=== PATIENT | female | born 2005 | race Caucasian/White ===

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

== ENCOUNTER 2024-06-28 10:09 | Emergency (ER) | payer SELFPAY ==
[2024-06-28 10:17] VITALS: BP 107/79; PULSE 86; RESP 20; TEMP 36.7; O2SAT 100
--- NOTE | 2024-06-28 10:25 | ED.URI ---
HPI - URI/Sore Throat General Chief Complaint: Upper Respiratory Infection Stated Complaint: SINUS ISSUES Time Seen by Provider: 06/28/24 10:25 Source: patient Mode of arrival: ambulatory Limitations: no limitations History of Present Illness HPI Narrative: 18-year-old female status post tonsillectomy presents to the ED with a 1 day history of -- fever -- sore throat -- sinus fullness. no sinus pain. No nasal congestion or nasal discharge. Prior history of sinusitis MD elicited complaint: fever and sinus pain Onset (ago): day(s) ( 1 day) Consistency: constant Able to tolerate fluids by mouth: Yes Exacerbating factors: nothing Relieving factors: nothing Associated symptoms: denies other symptoms, fever and sore throat Treatments prior to arrival: none Related Data Home Medications ?Medication ?Instructions ?Recorded ?Confirmed ?Last Taken ?Type etonogestrel 68 mg subdermal 1 implant subdermal ONCE 02/06/21 01/15/24 06/26/22 History implant (Nexplanon) Allergies Allergy/AdvReac Type Severity Reaction Status Date / Time No Known Allergies Allergy Verified 06/28/24 10:26 Review of Systems Review of Systems: All systems reviewed & are unremarkable except as noted in HPI and below PMFSH Past Medical History Medical History Encounter for postoperative care Laceration of left extensor hallucis longus tendon Social History Social History Smoking status: Never smoker Second hand tobacco smoke exposure: No Alcohol intake: never Substance use: never Substance use type: does not use Living arrangements: with family Additional living arrangements comments: Lives with mom Occupation/Education: student Spiritual care concerns: No Exam Narrative: afebrile. Oxygen saturation of 100% on room air. Const: General: healthy appearing and no acute distress Nutritional Appearance: well nourished Orientation/consciousness: patient oriented x3 Limitations: no limitations HENMT: Head: normal to inspection Ears: external ears normal Face/Nose/Sinus: Normal external nose present Face and sinus: normal facial exam Mouth: Yes Normal oral and palatal mucosa present Throat: posterior oropharynx normal Eyes: Conjunctivae: conjunctivae normal Pupils: Equal, round and reactive pupils present EOM: EOMs intact bilaterally Direct Ophthalmoscopy: no photophobia Neck: Neck: normal visual inspection, no lymphadenopathy and no meningeal signs Chest: Chest palpation & inspection: normal inspection of the chest Resp: Effort & Inspection: normal respiratory effort Auscultation: clear to auscultation bilaterally Cardio: Rate: regular rate Rhythm: regular rhythm GI: GI Palp: Yes Soft to palpation Auscultation: normal bowel sounds : General: Yes no CVA tenderness Back/Spine/Pelvis: Back: no CVA tenderness Skin: General skin exam: normal color Rashes: no rashes Wounds: no wounds Neuro: General: patient oriented x3, moves all extremities, no meningeal signs, no focal motor deficits and CN's II-XI intact bilaterally Cranial nerves: Yes Nystagmus not present Speech: normal speech Extrem: General: normal to inspection and no clubbing, cyanosis or edema Psych: Mental Status: mental status grossly normal Affect: normal affect Attitude: cooperative Course Course Emergency Course: Sore throat upper respiratory tract infection-- Patient tested negative for influenza/ RSV / COVID and strep Vital Signs Vital signs: Vital Signs Temperature 36.7 C 06/28/24 10:17 Pulse Rate 86 06/28/24 10:17 Respiratory Rate 20 06/28/24 10:17 Blood Pressure 107/79 06/28/24 10:17 Pulse Oximetry 100 06/28/24 10:17 Oxygen Delivery Room Air 06/28/24 10:17 Temperature 36.7 C 06/28/24 10:17 Pulse Rate 86 06/28/24 10:17 Respiratory Rate 20 06/28/24 10:17 Blood Pressure 107/79 06/28/24 10:17 Pulse Oximetry 100 06/28/24 10:17 Oxygen Delivery Room Air 06/28/24 10:17 MDM - URI/Sore Throat MDM Narrative Medical decision making narrative: upper respiratory tract infection Differential Diagnosis Differential diagnosis: Likely viral infection Lab Data Attestation: I reviewed the patient's lab results. Labs: Lab Results 06/28/24 Range/Units 10:31 Influenza A (RT-PCR) Negative (Negative) Influenza B (RT-PCR) Negative (Negative) RSV (RT-PCR) Negative (Negative) SARS-CoV-2 RNA (RT-PCR) Negative (Negative) Group A Strep (PCR) Not detected (Negative) Discharge Plan Discharge Clinical Impression: URI (upper respiratory infection) Patient Disposition: Home, Self-Care Condition: Stable Instructions: Antibiotic Form, Upper Respiratory Infection (ED) Patient Language: Paraguayan Prescriptions: No Action Nexplanon 68 mg implant 1 implant subdermal ONCE Rx Instructions: as a single dose Follow-up/Referrals: UNKNOWN,DOCTOR [Primary Care Provider] - Time of Disposition: 11:33
--- NOTE | 2024-06-28 10:40 | PC.NURSE ---
Covid culture sent to lab
[2024-06-28 11:18] LABS: SARS-CoV-2 RNA PCR Negative (Negative)
[2024-06-28 11:25] LABS: Influenza A QL RT-PCR Negative (Negative); Influenza B QL RT-PCR Negative (Negative); RSV RNA, RT-PCR Negative (Negative); Strep Group A RT-PCR NOT DETECTED (Negative)
[2024-06-28 11:45] VITALS: BP 112/79; PULSE 76; RESP 18; TEMP 36.8; O2SAT 100
--- OUTSIDE RECORDS SUMMARY | 2024-07-05 20:24 | XMS_ITS | Encounter Summary ---
Author Organization [facility] Address [address] [place] [address] Care Team Providers Care Blow Machine Tender Starch Spraying Name Role Phone Azra Rivas MD Primary Care Provider Reason for Visit * Reason Onset Date Comments Referral 06/04/2021 Encounter Details Date Type Department Care Team (Late st Contact Info) Description 06/04/[address] 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 Social History Tobacco Use Types Packs/Day Years Used Date Smoking Tobacco: Passive Smo ke Exposure - Never Smoker Alcohol Use Standard Drinks/Week Comments No 0 (1 standard drink = 0.6 oz pur e alcohol) Sex and Gender Information Value Date Recorded Sex Assigned at Not on file Gender Identity Not on file Sexual Orientation Not on file documented as of this encounter Plan of Treatment Not on file documented as of this encounter Visit Diagnoses Not on filedocumented in this encounter Care Teams Blow Machine Tender Starch Spraying Relationship Specialty Start Date End Date Azra Rivas MD PCP - General Pediatrics 08/13/18 documented as of this encounter
--- OUTSIDE RECORDS SUMMARY | 2024-07-05 20:24 | XMS_ITS | Referral Summary ---
Author Organization [facility] Address [address] [place] [address] Care Team Providers Care Wheat Buyer Name Role Phone Azra Rivas MD Primary Care Provider Source Comments [facility] Affiliates and Associated Physician Practices is amultiple site organization consisting of ambulatory clinics and hospital sitesin [place], [place], [place] and [place]. This disclosure is being madepursuant to the Care Everywhere program and may not contain all information available regarding this patient. Last updated 18.[facility] Allergies No known active allergies Medications Be aware that medications may not be up to date on this document. Always verify current medications with the patient. No known medications Social History Tobacco Use Types Packs/Day Years Used Date Smoking Tobacco: Passive Smo ke Exposure - Never Smoker Tobacco Cessation:Counseling Given: No Alcohol Use Standard Drinks/Week Comments No 0 (1 standard drink = 0.6 oz pur e alcohol) Sex and Gender Information Value Date Recorded Sex Assigned at Not on file Gender Identity Not on file Sexual Orientation Not on file Last Filed Vital Signs Vital Sign Reading Time Taken Comments Blood Pressure 105/65 08/24/2016 10:32 AM OFFLINE EDITOR Pulse 80 08/24/2016 10:32 AM OFFLINE EDITOR Temperature 36.9 ??C (98.4 ??F) 08/24/2016 1 0:32 AM OFFLINE EDITOR Respiratory Rate 24 08/24/2016 10:3 2 AM OFFLINE EDITOR Oxygen Saturation 100% 08/24/2016 10: 32 AM OFFLINE EDITOR Inhaled Oxygen Concentration - - Weight 46.3 kg (102 lb 1.2 oz) 11/17/19 10:40 AM CDT Height 158 cm (5' 2.21 ) 11/16/2018 10: 40 AM CDT Body Mass Index 18.55 11/16/2018 10:40 AM CDT Body Mass Index Percentile 37.23% 11/16 10:40 AM CDT Growth Chart: [facility] (Girls, 2- 20 Years) Plan of Treatment Not on file Care Teams Wheat Buyer Relationship Specialty Start Date End Date Azra Rivas MD PCP - General Pediatrics 08/13/18
--- OUTSIDE RECORDS SUMMARY | 2024-07-05 20:24 | XMS_ITS | Data Portability ---
Author Organization [facility] Address [address] [place] [address] Assessment Encounter Date Assessment Date Assessment LastModified by Organization Details LastModified Time 01/28/2021 01/28/2021 Discussed BTB estradiol nexplanon due out [id number] std testing today. [email or web address] Not available 01/28/2021 14:40:48 12/18/2021 12/18/[address] trich done FU WWE 1 year Not available 12/23/2021 13:41:21 Plan of Treatment Reminders Order Date Submit Date Provider Last Modified By Organization Details Last Modified Time Details Appointments None recorded. Lab test, urine 2021 022 [facility], [address], [address], [place], [address], 09:58:41 Referral None recorded. Procedures None recorded. Surgeries None recorded. Imaging None recorded. Medication Orders estradiol 2 mg tablet 2020 021 [id number], [address] [place], [address], 15:55:32 Patient TargetsNo targets recorded. Patient InstructionsNo instructions recorded. Reason for Referral None Reported. Results Created Date Observation Date Name Description Value Unit Range Abnormal Flag Note LastModifiedBy Organization Detail LastModifiedTime 01/29/20 21 01/28/2021 CT/GC AND TRICH OMONA S VAGIN KAMAR (RRNA ), URINE chlamydia trachomatis, PCR Negati ve negati ve Not Available [facility] (Lab) [address], [place], [address], 01/29/2021 12:22:04 01/29/20 21 01/28/2021 CT/GC AND TRICH OMONA S VAGIN KAMAR (RRNA ), URINE neisseria gonorrhoeae, PCR Negati ve negati ve Not Available [facility] (Lab) [address], [place], [address], 01/29/2021 12:22:04 01/29/20 21 01/28/2021 CT/GC AND TRICH OMONA S VAGIN KAMAR (RRNA ), URINE trichomonas vaginalis ribosomal RNA (rrna) Negati ve negati ve Not Available [facility] (Lab) [address], [place], [address], 01/29/2021 12:22:04 04/07/20 22 04/07/2022 pregn boo test, urine HCG negati ve Not Available [place] [address], [place], [address], 04/07/2022 09:58:31 04/29/20 23 04/29/2023 CT/GC AND TRICH OMONA S VAGIN KAMAR (RRNA ), SWAB chlamydia trachomatis, PCR Negati ve negati ve Not Available [facility] (Lab) [address], [place], [address], 04/30/2023 15:11:41 04/29/20 23 04/29/2023 CT/GC AND TRICH OMONA S VAGIN KAMAR (RRNA ), SWAB neisseria gonorrhoeae, PCR Negati ve negati ve Not Available [facility] (Lab) [address], [place], [address], 04/30/2023 15:11:41 04/29/20 23 04/29/2023 CT/GC AND TRICH OMONA S VAGIN KAMAR (RRNA ), SWAB trichomonas vaginalis ribosomal RNA (rrna) Negati ve negati ve Not Available [facility] (Lab) [address], [place], [address], 04/30/2023 15:11:41 Result Notes None recorded. Problems Name Problem SNOMED Code Status Onset Date Resolution Date Notes Provider Name and Address Organization Details Recorded Time Educatio n Completed 201901/28/2021 Encounte r for other general counseli ng and advice on contrace ption;Re corded Elsewher e: No Locat ion: [facility] S ource: EHR Biology Instructor yimi: N Practi ce ID: [id number] Wallace lable Time: 02:30:00 PM Chapis Murillo MD [address], [place], [address], [facility] 14:12:[address] Concept Completed 201801/28/2021 Encntr for routine child health exam w/o abnormal findings ;Recorde d Elsewher e: No Locat ion: [facility] S ource: EHR Biology Instructor yimi: N Practi ce ID: [id number] Wallace lable Time: 03:00:00 PM Chapis Murillo MD [address], [place], [address], [facility] 14:12:58 Acute vaginiti s [id number] Completed 201801/28/2021 Vaginiti s;Record ed Elsewher e: No Locat ion: [facility] S ource: EHR Biology Instructor yimi: N Practi ce ID: [id number] Wallace lable Time: 04:00:[address] MD [address], [place], [address], [facility] 14:12:[address] Concept Completed 201801/28/2021 Encounte r for surveill ance of other contrace ptives;R ecorded Elsewher e: No Locat ion: [facility] S ource: EHR Biology Instructor yimi: N Practi ce ID: [id number] Wallace lable Time: 05:00:00 PM Chapis Murillo MD [address], [place], [address], [facility] 14:13:01 Finding of regulari ty of menstrua l cycle Completed 201801/28/2021 Irregula r menstrua tion, unspecif ied;Prac melinda ID: [id number] Chapis Murillo MD [address], [place], [address], [facility] 14:12:49 Pregnanc y test negative [id number] Completed 201801/28/2021 Encounte r for pregnanc y test, result negative ;Recorde d Elsewher e: No Locat ion: [facility] S ource: EHR Biology Instructor yimi: N Pepeti ce ID: [id number] Wallace lable Time: 05:00:00 PM Chapis Murillo MD [address], [place], [address], [facility] 14:12:55 Contrace ptive sheath status 408250202 Completed 201801/28/2021 Encounte r for initial prescrip tion of other contrace ptives;R ecorded Elsewher e: No Locat ion: [facility] S ource: EHR Biology Instructor yimi: N Pepeti ce ID: [id number] Wallace lable Time: 05:00:00 PM Chapis Murillo MD [address], [place], [address], [facility] 14:12:45 Insertio n of intraute rine contrace ptive device Completed 201801/28/2021 Encounte r for insertio n of intraute rine contrace ptive device;R ecorded Elsewher e: No Locat ion: [facility] S ource: EHR Biology Instructor yimi: N Pepeti ce ID: [id number] Wallace lable Time: 05:00:00 PM Chapis Murillo MD [address], [place], [address], [facility] 14:12:52 Problem Notes None recorded. Procedures Surgical History Date Name Laterality Status Provider Name and Address Organization Details Recorded Time 2 Control Implant Removal completed Chapis Murillo MD [address], [place], [address], [facility] 04/07/2022 16:21:04 2 Control Implant Insertion completed Chapis Murillo MD [address], [place], [address], [facility] 04/07/2022 16:22:03 Imaging Results None recorded. Procedure Notes None recorded. Medical Equipment None Reported. Allergies No known drug allergies Medications Name Sig Start Date Stop Date Status Note LastModified by Organization Details LastModified Time Metrogel Vaginal 0.75 % (37.5 mg/5 gram) insert 1 applicat orful by vaginal route every day at bedtime x 5 08/03 completed Prescrib ed Elsewher e: No Locat ion: [facility] M odify By: [email or web address] z Encoun ter DateTime : 06/08/20 04:00:00 PM Not Available Not Available Not Available estradiol 2 mg tablet Take 1 tablet every day by oral route for 14 days. 04/29 completed Not Available Not Available Not Available Nexplanon 68 mg subdermal implant Inject by subcutan eous route. active nexplano n inserted 9 will need removed 2 Not Available Not Available Not Available Vitals Date Recorded Body height Body mass index (BMI) Percentile per age and sex Body mass index (BMI) Body weight Systolic blood pressure Diastolic blood pressure Provider Name and Address Organization Details Last Updated DateTime 1 162.56 cm 19 % 18.4 kg/m2 88546.3 8 g 106 mm[Hg] 70 mm[Hg] Solange Bingham [facility] 1 14:07:20 Date Recorded Body weight Systolic blood pressure Diastolic blood pressure Provider Name and Address Organization Details Last Updated DateTime 12/18/2021 77102.79 g 104 mm[Hg] 68 mm[Hg] [facility] 12/18/2021 15:00:32 Date Recorded Body weight Systolic blood pressure Diastolic blood pressure Provider Name and Address Organization Details Last Updated DateTime 04/07/2022 04429.98 g 112 mm[Hg] 72 mm[Hg] [facility] 04/07/2022 09:53:21 Date Recorded Body height Body mass index (BMI) Body mass index (BMI) Percentile per age and sex Body weight Systolic blood pressure Diastolic blood pressure Provider Name and Address Organization Details Last Updated DateTime 162.56 cm 21.2 kg/m2 47 % 80105.3 g 109 mm[Hg] 70 mm[Hg] Skyla Montaño [facility] 15:54:14 Social History Question Answer Notes LastModified by Organizat ion Details LastModified Time Tobacco Smoking Status Never Smoker [facility] 01/28/2021 09:25:57 What Is Your Level Of Alcohol Consumption? None Information not available 01/28/2021 Has Tobacco Cessation Counseling Been Provided? No Information not available 01/28/2021 Do You Or Have You Ever Used Any Other Forms Of Tobacco Or Nicotine? No Information not available 01/28/2021 Sex: Unknown Functional Status None recorded. Mental Status None recorded. Family History Nothing Reported. Medical History Condition Response Allergies (Food, seasonal, environmental ) N Other N Breast Cancer N Drug/Latex Allergies/Reactions N Blood Transfusion N Lung Disease N Dermatologic Disorders N Defects or Inherited Disease N Breast Problem N Gestational Diabetes N Hematologic disorders N Anesthesia Complications N History of STI N Deep Vein Thrombosis N Polycystic ovary syndrome N Anxiety Disorder N Autoimmune disease N Arthritis N Infertility N Polyps N Acid Reflux (GERD) N History of abnormal pap N Cancer N Stroke N Varicosities N Neurologic/Epilepsy N Endometriosis N High Cholesterol N Headaches N Fibromyalgia N Kidney Disease N Heart Problems N Kidney or Bladder Problems N Thyroid Problems N GI Problems N Eating Disorder N Anemia N Art (IVF or FET) N Psychiatric Illness N Ovarian Cancer N Diabetes N Pulmonary (TB, Asthma) N Hepatitis/Liver Disease N No Past Medical History N Eczema N Urinary Tract Infection N Abuse/Domestic Violence N Asthma N Trauma/Violence N Depression/ depression N Heart Disease N Pre-Eclampsia N Hypertension N Osteoporosis N Thrombophilias N Gynecological History Statement/Question Response Date of LMP Sexually Active? Y STIs/STDs N HPV Vaccine N Date of Last Pap Smear Sexual Problems? N Current Control Method Implant LMP Unknown Obstetrics History GPAL:G 0 P 0 0 0 0 Past Encounters Encounter ID Performer Location Encounter Start Date Encounter Closed Date Diagnosis/Indication Diagnosis SNOMED-CT Code Diagnosis ICD10 Code [id number] Chapis Murillo MD [place] [address] [address] 01/28/2021 13:52:34 01/28/2021 14:46:02 Contraception care management 874479513 Z30.9 Break-thro ugh bleeding 73686695 N92.1 Venereal d isease screening 652111667 Z11.3 [id number] Chapis Murillo MD [facility] [address],[place] [address] 04/07/2022 09:34:21 04/07/2022 16:26:38 Contraception care management 492905992 Z30.9 Insertion of subcutaneous contraceptive 747720917 Z30.9 Removal of subcutaneous contraceptive 468432153 Z30.46 [id number] Chapis Murillo MD [place] [address],[place] [address] 12/18/2021 14:54:34 12/23/2021 15:02:33 Venereal disease screening 754816162 Z11.3 [id number] JULI Herring [place] [address] [address] 04/29/2023 15:36:35 04/29/2023 16:20:32 Venereal disease screening 366769020 Z11.3 Health Concerns Section Related Observation LastModified by Organization Detai ls LastModified Time None Recorded Concern Status LastModified by Organization Details LastModified Time None Recorded Advance Directives Directive None Recorded Payers Encounter Date Sequence Insurance Name Policy Number Policy Judge Covered Member ID Judge Member ID Guarantor Name 01/28/2021 1 [facility] - DOS ON OR AFTER 21 (MEDICAID REPLACEMENT - HMO) Restoff [id number] Margaret Restoff 12/18/2021 1 [facility] - DOS ON OR AFTER 21 (MEDICAID REPLACEMENT - HMO) Rachel Restoff [id number] Margaret Restoff 04/07/2022 1 [facility] - DOS ON OR AFTER 21 (MEDICAID REPLACEMENT - HMO) Restoff [id number] Margaret Restoff 04/29/2023 1 [facility] ON OR AFTER 01/03/21 (MEDICAID REPLACEMENT - HMO) Restoff [id number] Margaret Restoff Notes Date Note Type Note Provider Name and Address Organization Details Recorded Time 01/28/2021 text/html Pt is a 15yo G0 here complaining of spotting for the whole last year. Occasionally gets a couple days without. A couple heavier episodes, mostly brown bleeding. Denies Additional concerns: sexually active:y, no recent stdt esting contraception:nexplan on Last annual exam:none Chapis Murillo MD [address], [place], [address], [facility] 01/28/2021 14:41:08 12/18/2021 text/html Pt is a 16yo G0 who presents for an STD check. Current symptoms: none, but new partner for 2 weeks. 2 total partners. Has nexplanon. contraception:nexplan on Last annual exam:none Chapis Murillo MD [address], [place], [address], [facility] 12/23/2021 13:42:17 04/07/2022 text/html Here for nexplan on removal and reinsert. Chapis Murillo MD [address], [place], [address], [facility] 04/07/2022 16:25:51 04/29/2023 text/html 17yopresents for STI testingno symptomsrecently had a new partnerno known exposure to STI'snexplanon for BC, does not use condomsneg pelvic painneg n/v/fneg flu-like symptoms JULI Herring [address], [place], [address], [facility] 04/29/2023 16:20:27 OBGyn Episode No OBEpisode recorded.
--- OUTSIDE RECORDS SUMMARY | 2024-07-05 20:24 | XMS_ITS | Encounter Summary ---
Author Organization [facility] Address [address] [place] [address] Care Team Providers Care Manager Paper Name Role Phone Radha Pittman APRN-PRINTING SUPPLIES SALES REPRESENTATIVE Primary Care Provider Reason for Visit * Reason Comments Sports Physical Encounter Details Date Type Department Care Team ([facility] Contact Info) Description 08/24/2016 3:00 PM TUBE REPAIRER Office Visit [facility] [address] [phone] [facility] (Primary Dx) Social History Tobacco Use Types Packs/Day Years Used Date Smoking Tobacco: Never Tobacco Cessation:Counseling Given: No Alcohol Use Standard Drinks/Week Comments No 0 (1 standard drink = 0.6 oz pur e alcohol) Sex and Gender Information Value Date Recorded Sex Assigned at Not on file Gender Identity Not on file Sexual Orientation Not on file documented as of this encounter Last Filed Vital Signs Vital Sign Reading Time Taken Comments Blood Pressure 105/65 08/24/2016 10:32 AM TUBE REPAIRER Pulse 80 08/24/2016 10:32 AM TUBE REPAIRER Temperature 36.9 ??C (98.4 ??F) 08/24/2016 10:[address] Respiratory Rate 24 08/24/2016 10:32 AM TUBE REPAIRER Oxygen Saturation 100% 08/24/2016 10:32 AM TUBE REPAIRER Inhaled Oxygen Concentration - - Weight 34.5 kg (76 lb) 08/24/2016 10:32 AM TUBE REPAIRER Height 149.9 cm (4' 11 ) 08/24/2016 10:32 AM TUBE REPAIRER Body Mass Index 15.35 08/24/2016 10:32 AM TUBE REPAIRER Body Mass Index Percentile 9.83% 08/24/2016 10: 32 AM TUBE REPAIRER Growth Chart: CDC (Girls, 2- 20 Years) documented in this encounter Progress Notes * Stacie Rosales, SCALES INSPECTOR-PRINTING SUPPLIES SALES REPRESENTATIVE - 08/24/2016 10:49 AM CST [facility] Chief Complaint Patient presents with ??? 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 No current outpatient prescriptions on file prior to visit. No current facility-administered medications on file prior to visit. Past Surgical History Procedure Laterality Date ??? Negative surgical history History Social History ??? Marital status: Single Spouse name: N/A ??? Number of children: N/A ??? Years of education: N/A Occupational History ??? Not on file. Social History Main Topics ??? Smoking status: Never Smoker ??? Smokeless tobacco: Not on file ??? Alcohol use: No ??? Drug use: Not on file ??? Sexual activity: Not on file Other Topics Concern ??? Not on file Social History Narrative ??? No narrative on file No family history on file. No current outpatient prescriptions on file. No current facility-administered medications for this visit. No Known Allergies REVIEW OF SYSTEMS: ROS OBJECTIVE: General appearance: alert, well appearing, and in no distress. BP 105/65 (BP SITE: LEFT ARM, BP POSITION: SITTING, BP CUFF SIZE: Adult) Pulse 80 Temp 98.4 ??F (Oral) Resp 24 Ht 1.499 m (4' 11 ) Wt 34.5 kg (76 lb) SpO2 100% BMI 15.35 kg/m2 Physical Exam Constitutional: She is oriented to person, place, and time and well-developed, well-nourished, and in no distress. HENT: Right Ear: External ear normal. Left Ear: External ear normal. Nose: Nose normal. Mouth/Throat: Oropharynx is clear and moist. Eyes: Conjunctivae and EOM are normal. Pupils are equal, round, and reactive to light. 20/20 bilat Neck: Normal range of motion. Neck supple. No tracheal deviation present. No thyromegaly present. Cardiovascular: Normal rate, regular rhythm and normal heart sounds. No murmur heard. Pulmonary/Chest: Effort normal and breath sounds normal. Abdominal: Soft. Bowel sounds are normal. Musculoskeletal: Normal range of motion. Lymphadenopathy: She has no cervical adenopathy. Neurological: She is alert and oriented to person, place, and time. Gait normal. GCS score is 15. Skin: Skin is warm and dry. Psychiatric: Affect normal. ASSESSMENT: No results found for this visit on 08/24/16. Encounter Diagnosis Name Primary? Sports physical Yes PLAN: No orders of the defined types were placed in this encounter. REPAIRER documented in this encounter Plan of Treatment Not on file documented as of this encounter Visit Diagnoses Diagnosis Sports physical- Primary Other general medical examination for administrative purposes documented in this encounter Care Teams Manager Paper Relationship Specialty Start Date End Date Radha Pittman APRN-CNP [address] [place] [address] PCP - General Nurse Practitioner 08/24/16 08/12/18 documented as of this encounter
--- OUTSIDE RECORDS SUMMARY | 2024-07-05 20:24 | XMS_ITS | Patient Health Summary ---
Author Organization [facility] Address [address] [place] [address] Care Team Providers Care Landscape Architect And Planner Name Role Phone Azra Rivas MD Primary Care Provider Note from [facility],non-owned Affiliates and Associated Physician Practices is amultiple site organization consisting of ambulatory clinics and hospital sitesin [place], [place], [place] and [place]. This disclosure is being madepursuant to the Care Everywhere program and may not contain all information available regarding this patient. Last updated 18.[facility] Allergies No known active allergies Medications [...] Comments Blood Pressure 105/65 08/24/2016 10:32 AM PULP GRINDER FEEDER Pulse 80 08/24/2016 10:32 AM PULP GRINDER FEEDER Temperature 36.9 ??C (98.4 ??F) 08/24/2016 1 0:32 AM PULP GRINDER FEEDER Respiratory Rate 24 08/24/2016 10:3 2 AM PULP GRINDER FEEDER Oxygen Saturation 100% 08/24/2016 10: 32 AM PULP GRINDER FEEDER Inhaled Oxygen Concentration - - Weight 46.3 kg (102 lb 1.2 oz) 11/17/19 10:40 AM CDT Height 158 cm (5' 2.21 ) 11/16/2018 10: 40 AM CDT Body Mass Index 18.55 11/16/2018 10:40 AM CDT Body Mass Index Percentile 37.23% 11/16 10:40 AM CDT Growth Chart: CDC (Girls, 2- 20 Years) Care Teams Landscape Architect And Planner Relationship Specialty Start Date End Date Azra Rivas MD PCP - General Pediatrics 08/13/18
--- OUTSIDE RECORDS SUMMARY | 2024-07-05 20:24 | XMS_ITS | Encounter Summary ---
Author Organization [facility] Address [address] [place] [address] Care Team Providers Care Child Nutrition Assistant Name Role Phone Azra Rivas MD Primary Care Provider Encounter Details Date Type Department Care Team (Latest Contact Info) Description 06/12/2021 Travel Social History Tobacco Use Types Packs/Day Years Used Date Smoking Tobacco: Passive Smo ke Exposure - Never Smoker Alcohol Use Standard Drinks/Week Comments No 0 (1 standard drink = 0.6 oz pur e alcohol) Sex and Gender Information Value Date Recorded Sex Assigned at Not on file Gender Identity Not on file Sexual Orientation Not on file COVID-19 Exposure Response Date Recorded In the last month, have you been in contact with someone who was confirmed or suspected to have Coronavirus / COVID-19? No / Unsure 06/12/2021 4:26 PM AWNINGS MECHANIC documented as of this encounter Plan of Treatment Not on file documented as of this encounter Visit Diagnoses Not on filedocumented in this encounter Care Teams Child Nutrition Assistant Relationship Specialty Start Date End Date Azra Rivas MD PCP - General Pediatrics 08/13/18 documented as of this encounter
--- OUTSIDE RECORDS SUMMARY | 2024-07-05 20:24 | XMS_ITS | Clinical Summary ---
Author Organization [facility] Address [address] [place] [address] Care Team Providers Care Room Service Food Service Attendant Name Role Phone Azra Rivas MD Primary Care Provider Source Comments [facility],non-[facility]-os[facility] hospital Affiliates and Associated Physician Practices is amultiple site organization consisting of ambulatory clinics and hospital sitesin [place], [place], [place] and [place]. This disclosure is being madepursuant to the Care Everywhere program and may not contain all information available regarding this patient. Last updated 18.[facility] Allergies No known active allergies Medications Be aware that medications may not be up to date on this document. Always verify current medications with the patient. No known medications Family History Medical History Relation Name Comments Anesthesia Reaction Neg Hx Social History Tobacco Use Types Packs/Day Years [...] Comments Blood Pressure 105/65 08/24/2016 10:32 AM MANAGER NURSING HOME Pulse 80 08/24/2016 10:32 AM MANAGER NURSING HOME Temperature 36.9 ??C (98.4 ??F) 08/24/2016 1 0:32 AM MANAGER NURSING HOME Respiratory Rate 24 08/24/2016 10:3 2 AM MANAGER NURSING HOME Oxygen Saturation 100% 08/24/2016 10: 32 AM MANAGER NURSING HOME Inhaled Oxygen Concentration - - Weight 46.3 kg (102 lb 1.2 oz) 11/17/19 10:40 AM CDT Height 158 cm (5' 2.21 ) 11/16/2018 10: 40 AM CDT Body Mass Index 18.55 11/16/2018 10:40 AM CDT Body Mass Index Percentile 37.23% 11/16 10:40 AM CDT Growth Chart: [facility] (Girls, 2- 20 Years) Plan of Treatment Health Maintenance Due Date Last Done Comments HIV SCREENING 09/07/2019 HPV VACCINE (1 - 3-dose series) 09/07/2019 CHLAMYDIA/GONORRHEA SCREENING 2020 HEPATITIS C SCREENING 09/02/2022 DEPRESSION SCREENING 07/06/2023 DTAP/TDAP/TD VACCINES (1 - Tdap) 09/07/2023 HEPATITIS B VACCINE (1 of 3 - 19+ 3-dose series) 09/07/2023 COVID-19 VACCINE (1 - 2023-2 5 season) 2024 INFLUENZA VACCINE (#1) 2024 ZOSTER VACCINE (1 of 2) 2054 HIB VACCINE Aged Out No longer eligi ble based on patient's age to complete this topic MENINGOCOCCAL VACCINE Aged Out No lucila jerome eligible based on patient's age to complete this topic PNEUMOCOCCAL VACCINE Aged Out No long er eligible based on patient's age to complete this topic Care Teams Room Service Food Service Attendant Relationship Specialty Start Date End Date Azra Rivas MD PCP - General Pediatrics 08/13/18
--- OUTSIDE RECORDS SUMMARY | 2024-07-05 20:24 | XMS_ITS | Encounter Summary ---
Author Organization [facility] Address [address] [place] [address] Care Team Providers Care Day Habilitation Supervisor Name Role Phone Azra Rivas MD Primary Care Provider Reason for Visit * Reason Comments Enlarged Tonsils large tonsils Encounter Details Date Type Department Care Team (Latest Contact Info) Description 08/13/2018 10:12 AM PLISSE MACHINE OPERATOR - 08/13/2018 11:59 PM [facility] Hospital Encounter [facility] Pediatrics - ENT [address] [place] [address] Honey Perez, CHIEF DEPUTY CLERK/BAILIFF-FILLER LEAF CUTTER LONG [address] [place] [address] Discharge Disposition: Home or Self Care Social History Tobacco Use Types Packs/Day Years [...] Sign Reading Time Taken Comments Blood Pressure - - Pulse - - Temperature - - Respiratory Rate - - Oxygen Saturation - - Inhaled Oxygen Concentration - - Weight 45.3 kg (99 lb 13.9 oz) 08/13/2018 10:28 AM PLISSE MACHINE OPERATOR Height - - Body Mass Index - - documented in this encounter Progress Notes * Honey Perez, CHIEF DEPUTY CLERK/BAILIFF-FILLER LEAF CUTTER LONG - 08/13/2018 11:46 AM CST Images from the original note were not included. Division of Pediatric Otolaryngology [address] [place] [id number] ? Name: Rachel Garza Age: 12 y.o. 11 m.o. Sex: female Date: 08/13/2018 : 2005 Pediatric Otolaryngology Visit Rachel Garza is a 12 y.o. female that presents to the Pediatric Otolaryngology Clinic as a(n) newpatient with the following complaints: Enlarged Tonsils (large tonsils). She was accompanied today by her mother. Rachel is here for enlarged tonsils and recurrent tonsillitis. Rachel has had difficulty with enlarged tonsils for several years. She has tonsillitis several times a year, 3x in the last 6 months. Per mom when she is sick her tonsils will swell to touching. Tonsillitis is always strep negative. Cosme has been tested mono negative with the last episode of tonsillitis. Mom reports snoring occasionally, but not every night. No history of pauses or gasping noted. Although Rachel does report occasionally suddenly waking up in sleep. Rachel has no history of allergies. A trial of allergy medication was recommended when Rachel was younger, but mom reports she never gave it to her. History No past medical history on file. No history on file. Past Surgical History: Procedure Laterality Date ??? NEGATIVE SURGICAL HISTORY Family History Problem Relation Age of Onset ??? Anesthesia Reaction Neg Hx Social History Lives with: Father only School/daycare: Elementary Tobacco: History Smoking Status ??? Passive Smoke Exposure - Never Smoker Smokeless Tobacco ??? Not on file Allergies Review of patient's allergies indicates no known allergies. Immunizations Up to date by parent report Current Medications No current outpatient prescriptions on file. No current facility-administered medications for this encounter. Review of Systems Constitutional: (+) normal growth Eyes: (-) corrective lenses ENT: (+) snoring and (+) throat infections (-) otorrhea Respiratory: (-) wheezing Integumentary / Skin: (-) rash Neurological: (-) seizures Hematologic / Lymphatic: (-) unusual bleeding Allergy / Immunology: (-) environmental/seasonal allergy changes Vitals and Growth Parameters Temp: Height: No height on file for this encounter. Weight: 45.3 kg (99 lb 13.9 oz) 33 %ile (Z= -0.45) based on CDC 2-20 Years [id number] data using vitals from 08/13/2018.BMI: No height and weight on file for this encounter. No height and weight onfile for this encounter. BP: No blood pressure reading on file for this encounter. No blood pressure reading on file for this encounter. Physical Exam Constitutional: Alert, active and well-nourished. Voice is hyponasal. Head:Normocephalic. Eyes: Conjunctivae normal. Ears: External ear Right: Normal position and normal size. Left: normal position and normal size. Canal Right: Normal. Left: Normal. Middle Ear Space Right: Clear. Left: Clear. Tympanic Membrane Right: Normal and intact. Left: Normal and intact. Nose: Atraumatic. Septum: Normal Turbinates: Normal. Rhinorrhea: None Mucosa: Filer. Oral/Oropharyngeal: Oropharynx clear. Dentition: Age appropriate. Tongue: Normal. Pharyngeal mucosa: Filer Fontaine score: 1 Tonsils 2-3+ Neck: Trachea midline and neck supple. Cardiovascular: No cyanosis. Pulmonary: Unlabored breathing on room air. Skin: Warm and moist. Neurological: Alert. Developmental delay: No Assessment Rachel is a 12 y.o. female with recurrent tonsillitis and tonsillar hypertrophy. Plan Discussed adenotonsillectomy vs watchful waiting based on recurrent tonsillitis for > 3 years. Family will consider and follow up if they would like to proceed with discussing surgery further. LEIGHTON Navarro SE MACHINE OPERATOR documented in this encounter Plan of Treatment Not on file documented as of this encounter Visit Diagnoses Not on filedocumented in this encounter Care Teams Day Habilitation Supervisor Relationship Specialty Start Date End Date Azra Rivas MD PCP - General Pediatrics 08/13/18 documented as of this encounter
--- OUTSIDE RECORDS SUMMARY | 2024-07-05 20:24 | XMS_ITS | Encounter Summary ---
Author Organization [facility] Address [address] [place] [address] Care Team Providers Care Combination Building Inspector Name Role Phone Azra Rivas MD Primary Care Provider Reason for Visit * Reason Comments Tonsillitis family wanting patie nt to have t & a done, were here in 08/2018 and chose watchful waiting over surgery at the time Encounter Details Date Type Department Care Team (Latest Contact Info) Description 11/16/2018 10:28 AM CDT - 11/16/2018 11:59 PM CDT Hospital Encounter [facility] Pediatrics - ENT [address] [place] [address] Eliana Simental PA [address] [place] [address] Honey Perez, SOLE PAINTER-COMMERCIAL FIELD INSPECTOR [address] [place] [address] Discharge Disposition: Home or Self Care Social [...] - Inhaled Oxygen Concentration - - Weight 46.3 kg (102 lb 1.2 oz) 11/17/19 19 10:40 AM CDT Height 158 cm (5' 2.21 ) 11/16/2018 10: 40 AM CDT Body Mass Index 18.55 11/16/2018 10:40 AM CDT Body Mass Index Percentile 37.23% 11/16 10:40 AM CDT Growth Chart: [facility] (Girls, 2- 20 Years) documented in this encounter Progress Notes * Honey Perez, DOMINIC-COMMERCIAL FIELD INSPECTOR - 11/16/2018 12:54 PM CDT Images from the original note were not included. Division of Pediatric Otolaryngology [address] [place] [id number] ? Name: Rachel Garza Age: [age] year old 2 month old Sex: female Date: 11/16/2018 : 2005 Pediatric Otolaryngology Visit Rachel Garza is a 13 year old female that presents to the Pediatric Otolaryngology Clinic as a(n)established patient with the following complaints: Tonsillitis (family wanting patient to have t & a done, were here in 08/2018 and chose watchful waiting over surgery at the time). Rachel was last seen 3 months ago. She was accompanied today by her mother. Tonsillitis/Sore Throat Frequency: 6 of episodes in the last 1 year. Symptoms: Dysphagia, pain, previous infections and snoring. Difficulty with recurrent tonsil stones, Rachel has been digging them out. Rachel was here 3 months ago with the same complaints however decided to defer surgery. History No past medical history on file. No history on file. Past Surgical History: Procedure Laterality Date ??? NEGATIVE SURGICAL HISTORY Family History Problem Relation Age of Onset ??? Anesthesia Reaction Neg Hx Social History Lives with: Parents School/daycare: [employer] Tobacco: History Smoking Status ??? Passive Smoke Exposure - Never Smoker Smokeless Tobacco ??? Not on file Allergies Review of patient's allergies indicates no known allergies. Immunizations Up to date by parent report Current Medications No current outpatient prescriptions on file. No current facility-administered medications for this encounter. Review of Systems An 11 system Review of Systems has been performed. Notable changes denoted below. Vitals and Growth Parameters Temp: Height: 158 cm (5' 2.21 ) 34 %ile (Z= -0.42) based on [facility] 2-20 Years [id number] data using vitals from 11/16/2018. Weight: 46.3 kg (102 lb 1.2 oz) 34 %ile (Z= -0.42) based on CDC 2-20 Years [id number] data using vitals from 11/16/2018.BMI: 18.55 37 %ile (Z= -0.33) based on CDC 2-20 Years BMI-for-age data usingvitals from 11/16/2018. 18.55 37 %ile (Z= -0.33) based on CDC 2-20 Years BMI-for-age data using vitals from 11/16/2018. BP: No blood pressure reading on file for this encounter. No blood pressure reading on file for this encounter. Physical Exam Constitutional: Alert, active and well-nourished. Voice is normal. Head:Normocephalic. Eyes: Conjunctivae normal. Ears: External ear Right: Normal position and normal size. Left: normal position and normal size. Canal Right: Normal. Left: Normal. Middle Ear Space Right: Clear. Left: Clear. Tympanic Membrane Right: Normal and intact. Left: Normal and intact. Nose: Atraumatic. Septum: Normal Turbinates: Normal. Rhinorrhea: None Mucosa: Mazon. Oral/Oropharyngeal: Oropharynx clear. Dentition: Age appropriate. Tongue: Normal. Pharyngeal mucosa: Mazon Right tonsil: 3+. Left tonsil: 3+. Fontaine score: 1 Neck: Trachea midline and neck supple. Pulmonary: Unlabored breathing on room air. Skin: Warm and moist. Neurological: Alert. Developmental delay: No Assessment Rachel is a 13 year old female with recurrent tonsillitis and tonsillar hypertrophy. Plan Discussed watchful waiting versus adenotonsillectomy under general anesthesia. Family will discuss at home and will call if they would like to proceed with surgery. Discussed debridement of tonsil stones with water pick as an option. LEIGHTON Navarro documented in this encounter Plan of Treatment Not on file documented as of this encounter Visit Diagnoses Not on filedocumented in this encounter Care Teams Combination Building Inspector Relationship Specialty Start Date End Date Azra Rivas MD PCP - General Pediatrics 08/13/18 documented as of this encounter
--- OUTSIDE RECORDS SUMMARY | 2024-07-05 20:25 | XMS_ITS | Encounter Summary ---
Author Organization [facility] Address [address] [place] [address]. [place] [address] [place] [address] Care Team Providers Care Miner Operator Name Role Phone Tank Pittman MD Primary Care Provider Unav ailable Reason for Visit * Reason Comments Sore Throat Encounter Details Date Type Department Care Team (Late st Contact Info) Description 06/20/2018 12:25 PM VC++ DEVELOPER - 06/20/2018 1:07 PM VC++ DEVELOPER Emergency [facility] [place] [address] Richard Lake MD [address] [place] [address] Sore Throat Discharge Disposition: Home or Self Care (Routine Discharge) Social History Tobacco Use Types Packs/Day Years Used Date Smoking Tobacco: Never Smokeless Tobacco: Never Alcohol Use Standard Drinks/Week Comments No 0 (1 standard drink = 0.6 oz pur e alcohol) Comments No Sex and Gender Information Value Date Recorded Sex Assigned at Not on file Legal Sex Female 7:47 PM CDT Gender Identity Not on file Sexual Orientation Not on file documented as of this encounter Last Filed Vital Signs Vital Sign Reading Time Taken Comments Blood Pressure 94/68 06/20/2018 1:05 PM VC++ DEVELOPER Pulse 80 06/20/2018 1:05 PM VC++ DEVELOPER Temperature 36.8 ??C (98.2 ??F) 06/20/2018 11:[address] Respiratory Rate 16 06/20/2018 1:05 PM VC++ DEVELOPER Oxygen Saturation 99% 06/20/2018 1:05 PM VC++ DEVELOPER Inhaled Oxygen Concentration - - Weight 46.4 kg (102 lb 4.7 oz) 06/20/2018 11:52 AM VC++ DEVELOPER Height - - Body Mass Index - - documented in this encounter Discharge Instructions * Attachments The following attachments cannot be sent through Care Everywhere. * SORE THROAT DISCHARGE INSTRUCTIONS, CHILD (GUATEMALAN) documented in this encounter Medications at Time of Discharge amoxicillin 400 MG/5ML suspension Take 10 mLs (800 mg total) by mouth 2 (two) times daily for 10 days. 200 mL 06/20/2018 06/30/2018 prednisoLONE 15 MG/5ML solution Take 20 mLs (60 mg total) by mouth daily for 4 days. 80 mL 06/21/2018 06/25/2018 documented as of this encounter ED Notes * Richard Lake MD - 06/20/2018 12:50 PM CST Chief Complaint Chief Complaint Patient presents with ??? Sore Throat History of Present Illness Pt. With ST and fever. Tonsils got very big . Can handle secretions. Has had this several times before. Past Medical History - large tonsils before x 3 or 4 Immunization - UTD Medical History ALLERGIES: No Known Allergies MEDICATIONS: Prior to Admission medications Medication Sig Start Date End Date Taking? Authorizing Provider amoxicillin 400 MG/5ML suspension Take 10 mLs (800 mg total) by mouth 2 (two) times daily for 10 days. 06/20/18 06/30/18 Yes Richard Lake MD prednisoLONE 15 MG/5ML solution Take 20 mLs (60 mg total) by mouth daily for 4 days. 06/21/18 06/25/18 Yes Richard Lake MD PAST MEDICAL HISTORY: History reviewed. No pertinent past medical history. PAST SURGICAL HISTORY: History reviewed. No pertinent surgical history. FAMILY HISTORY: No family history on file. SOCIAL HISTORY: Social History Tobacco Use ??? Smoking status: Never Smoker ??? Smokeless tobacco: Never Used Substance Use Topics ??? Alcohol use: No ??? Drug use: No Review of Systems Review of Systems Constitutional: Positive for fever. HENT: Positive for sore throat. Negative for congestion, trouble swallowing and voice change. Respiratory: Negative for cough, wheezing and stridor. Gastrointestinal: Negative for abdominal distention and abdominal pain. Neurological: Negative for seizures and weakness. Physical Exam Filed Vitals: 06/20/18 1152 BP: (!) 93/64 Pulse: (!) 106 Resp: 16 Temp: 98.2 ??F (36.8 ??C) TempSrc: Temporal SpO2: 98% Weight: 46.4 kg (102 lb 4.7 oz) Physical Exam Constitutional: She appears well-developed. HENT: Head: Normocephalic. Right Ear: External ear normal. Nose: Nose normal. Mouth/Throat: Oropharyngeal exudate present. No posterior oropharyngeal edema, posterior oropharyngeal erythema or tonsillar abscesses. Tonsils 3+ B. They are symmetric. No peritonsillar abscess. + pus. Tonsils appear red Neck: Normal range of motion. Cardiovascular: Normal rate, regular rhythm and normal heart sounds. Pulmonary/Chest: Effort normal. Abdominal: Soft. Musculoskeletal: Normal range of motion. Nursing note and vitals reviewed. Diagnostic Studies / Procedures ELECTROCARDIOGRAMS: No results found for this visit on 06/20/18. LABORATORY STUDIES: Results for orders placed or performed during the hospital encounter of 06/20/18 RAPID STREP A Result Value Ref Range Specimen Type THROAT RAPID STREP TEST NEGATIVE NEGATIVE IMAGING STUDIES No orders to display ED Course / Medical Decision Making MDM Number of Diagnoses or Management Options Diagnosis management comments: Tonsils are large and inflammed. Will rx w/ steroids. Strep test is pending. Pt. Says she has had false negative's before. I will treat at least until final test comes back. Giving oral steroids to decrease inflammation. Referral to ENT b/c this has occurred several times. Clinical Impression Pharyngitis (Primary) Tonsillitis Disposition: Discharge Richard Lake MD 06/20/18 1305 ++ DEVELOPER * Dolly Dean LPN - 06/20/2018 12:35 PM CST Pt is handling secretions without complications. No difficulty breathing noted. ++ DEVELOPER * Joanne Mcdaniel RN - 06/20/2018 11:54 AM CST To ed with reports of recurrent tonsil swelling. Hx ct without abscess. Reports difficulty swallowing with muffled voice noted. ++ DEVELOPER documented in this encounter Plan of Treatment Not on file documented as of this encounter Procedures Procedure Name Priority Date/Time Associated Diagnosis Comments STREP A, DNA STAT 06/20/2018 12:31 PM VC++ DEVELOPER RAPID STREP A STAT 06/20/2018 12:31 PM VC++ DEVELOPER documented in this encounter Results * STREP A, DNA (06/20/2018 12:31 PM VC++ DEVELOPER) STREP A MOLECULAR NEGATIVE NEGATIVE 018 3:09 PM VC++ DEVELOPER [facility] Comment:SPECIMEN NEGATIVE FO R GROUP A STREPTOCOCCUS BY DNA AMPLIFICATION 06/20/2018 12:3 1 PM VC++ DEVELOPER Richard Lake MD MICROBIOLOGY - GENERAL ORDERA BLES Final Result Performing Organization Address City/[facility]/ZIP Co de Phone Number [facility] [address] [place] [address], [place] [phone] * RAPID STREP A (06/20/2018 12:31 PM VC++ DEVELOPER) SPECIMEN TYPE THROAT 06/20/2018 12:30 PM VC++ DEVELOPER [facility] RAPID STREP TEST NEGATIVE NEGATIVE 06/20/2018 12:56 PM VC++ DEVELOPER [facility] STRUCTURE OF ANTERIOR PORTION OF NECK / Unknown 06/20/2018 12:31 PM VC++ DEVELOPER Richard Lake MD MICROBIOLOGY - GENERAL ORDERA BLES Final Result [facility] [address] [place] [address], [place] [phone] documented in this encounter Visit Diagnoses Diagnosis Pharyngitis- Primary Acute pharyngitis Tonsillitis Acute tonsillitis documented in this encounter Administered Medications Inactive Administered Medications - up to 3 most recent administrations Medication Order MAR Action Action Date Dose Rate Site prednisoLONE (ORAPRED) 15 MG/5ML solution 60 mg 60 mg, Oral, Once, 1 dose, On 06/20/18 at 1300 Given 06/20/2018 1:02 PM VC++ DEVELOPER 60 mg documented in this encounter Active and Recently Administered Medications Times are shown in VC++ DEVELOPER. Scheduled Medication Order 06/18/2018 06/19/2018 06/20/2018 prednisoLONE (ORAPRED) 15 MG/5ML solution 60 mg (COMPLETED) 60 mg, Oral, Once, 1 dose, On 06/20/18 at 1300 1302 (Given - Provid er: Dolly Dean LPN) documented in this encounter Care Teams Miner Operator Relationship Specialty Start Date End Date Tank Pittman MD PCP - General 01/13/15 documented as of this encounter
--- OUTSIDE RECORDS SUMMARY | 2024-07-05 20:25 | XMS_ITS | Encounter Summary ---
Author Organization [facility] Address [address] [place] [address]. [place] [address] [place] [address] Care Team Providers Care Outpatient Facility Physical Therapist Name Role Phone Tank Pittman MD Primary Care Provider Tank Knight MD Primary Care Provider Johanny Lugo Md, MD Primary Care Provider Unavailable Encounter Details Date Type Department Care Team (Late st Contact Info) Description [facility]/[address] [facility] [address] [place], [place] [id number] Johanny Minor MD Social History Tobacco Use Types Packs/Day Years Used Date Smoking Tobacco: Never Assessed Comments Unknown Sex and Gender Information Value Date Recorded Sex Assigned at Not on file Legal Sex Female 7:47 PM CDT Gender Identity Not on file Sexual Orientation Not on file documented as of this encounter Plan of Treatment Not on file documented as of this encounter Visit Diagnoses Diagnosis Otitis media Unspecified otitis media documented in this encounter Care Teams Outpatient Facility Physical Therapist Relationship Specialty Start Date End Date Tank Pittman MD PCP - General 01/13/15 Tank Pittman MD PCP - General 12/03/13 01/12/15 Johanny Minor MD PCP - General 11/18/12 documented as of this encounter
--- OUTSIDE RECORDS SUMMARY | 2024-07-05 20:25 | XMS_ITS | Encounter Summary ---
Author Organization [facility] Address [address] [place] [address]. [place] [address] [place] [address] Care Team Providers Care Field Liability Generalist Name Role Phone Tank Pittman MD Primary Care Provider Unav ailable Reason for Visit * Reason Comments Ear Problem Encounter Details Date Type Department Care Team (Late st Contact Info) Description 01/07/2018 1:48 AM CDT - 01/07/2018 2:22 AM CDT Emergency [facility] [place] [address] Rick Donis MD [address] [facility] [place] [address] Ear Problem Discharge Disposition: Home or Self Care (Routine [...] Taken Comments Blood Pressure - - Pulse 68 01/07/2018 1:49 AM CDT Temperature 36.4 ??C (97.5 ??F) 01/07/2018 1:49 AM CD T Respiratory Rate 18 01/07/2018 1:49 AM CDT Oxygen Saturation 100% 01/07/2018 1:49 AM CDT Inhaled Oxygen Concentration - - Weight 45.6 kg (100 lb 8.5 oz) 01/07/2018 1:49 A M CDT Height 157.5 cm (5' 2 ) 01/07/2018 1:49 AM CDT Body Mass Index 18.39 01/07/2018 1:49 AM CDT Body Mass Index Percentile 42.32% 01/07/2018 1:4 9 AM CDT Growth Chart: [facility] (Girls, 2- 20 Years) documented in this encounter Discharge Instructions * Discharge Instructions* Rick Donis MD - 01/07/2018 2:11 AM CDT Images from the original note were not included. Patient Education Outer Ear Infection Discharge Instructions About this topic The inside or outside of your ear can become infected. If your outer ear or ear canal is swollen and infected, you have an outer ear infection. Your ear may itch or be red and swollen. Your ear may hurt or have drainage as well. This infection happens if germs enter your ears and cause a problem. This is more likely to happen if you have a wound in your ear. It can also happen if there is something in your ear or if your ear is wet for a long time. You may have signs a few days after swimming. This is why outer ear infections are often called swimmers ear. Long-term outer ear infections may be caused by: ?? Allergic reaction ?? Skin problems, such as eczema or psoriasis ?? Chronic middle ear infections What care is needed at home? ?? Ask your doctor what you need to do when you go home. Make sure you ask questions if you do not understand what the doctor says. This way you will know what you need to do. ?? Take your drugs as ordered by your doctor. ?? Be sure to treat an infection right away. This will help to keep it from spreading to other parts of your ear. ?? Heat may help ease your ear pain. If your doctor tells you to use heat, put a heating pad or hotwater bottle on your ear for no more than 20 minutes at a time. Never go to sleep with a heating pad on as this can cause jorgensen. What follow-up care is needed? Your doctor may ask you to make visits to the office to check on your progress. Be sure to keep these visits. What drugs may be needed? The doctor may order drugs to: ?? Help with pain and swelling ?? Fight an infection ?? Relieve itching Will physical activity be limited? You may have to limit your activity. Talk to your doctor about when you may swim again. Ask if there is anything you can do to lower your chance of more ear infections. What problems could happen? ?? Very bad infection ?? Hearing problems What can be done to prevent this health problem? ?? Keep your ears dry: ?? Use a bathing cap or ear plugs when swimming. ?? Use a towel to dry your ears when they are wet. ?? Do not swim in dirty or polluted water. ?? Avoid getting soap or other items in your ears. ?? Do not scratch your ears. ?? Do not put swabs or other objects in your ears. When do I need to call the doctor? ?? Signs of infection. These include a fever of 100.4??F (38??C) or higher, chills, very bad sore throat, ear or sinus pain. ?? Signs get worse ?? You feel pain and there is redness of the bone behind your ear ?? Drugs you are taking are not working for you ?? Health problem is not better or you are feeling worse Helpful tips ?? Talk to your doctor to see if there are drops you can use to help prevent the growth of germs. ?? Outer ear infections are not contagious, but need treatment. Teach Back: Helping You Understand The Teach Back Method helps you understand the information we are giving you. The idea is simple. After talking with the staff, tell them in your own words what you were just told. This helps to makesure the staff has covered each thing clearly. It also helps to explain things that may have been abit confusing. Before going home, make sure you are able to do these: ?? I can tell you about my condition. ?? I can tell you what may help ease my pain. ?? I can tell you what I will do if I have pain or redness of the bone behind my ear. Where can I learn more? [employer] http://www.purnima.org/uploadedFiles/LKU-Gkhatraf-Etn-Otitis-Externa.pdf Centers for Disease Control and Prevention http://www.cdc.gov/healthywater/swimming/rwi/illnesses/swimmers-ear.html Centers for Disease Control and Prevention http://www.cdc.gov/healthywater/pdf/swimming/resources/pseudomonas-factsheet_swi mmers_ear.pdf [employer] http://kidshealth.org/parent/infections/ear/swimmer_ear.html Last Reviewed Date 2014-10-03 Consumer Information Use and Disclaimer This information is not specific medical advice and does not replace information you receive from your health care provider. This is only a brief summary of general information. It does NOT include all information about conditions, illnesses, injuries, tests, procedures, treatments, therapies, discharge instructions or life-style choices that may apply to you. You must talk with your health care provider for complete information about your health and treatment options. This information should not be used to decide whether or not to accept your health care provider???s advice, instructions or recommendations. Only your health care provider has the knowledge and training to provide advice that is right for you. Copyright Copyright ?? 2018 [employer]. and its affiliates and/or licensors. All rights reserved. documented in this encounter Medications at Time of Discharge ciprofloxacin-dex amethasone otic suspension Place 4 drops into the left ear 2 (two) times daily for 10 days. 7.5 mL 01/07/2018 01/17/2018 documented as of this encounter ED Notes * Rick Donis MD - 01/07/2018 2:11 AM CDT Chief Complaint Chief Complaint Patient presents with ??? Ear Problem History of Present Illness HPI Comments: 12 year old female with earache on left for 2 days. No fever. No headache. No cough or congestion. Went swimming yesterday. Pain woke her up out of her sleep. No other symptoms. Medical History ALLERGIES: No Known Allergies MEDICATIONS: Prior to Admission medications Medication Sig Start Date End Date Taking? Authorizing Provider ciprofloxacin-dexamethasone otic suspension Place 4 drops into the left ear 2 (two) times daily for10 days. 01/07/18 01/17/18 Yes Rick Donis MD PAST MEDICAL HISTORY: History reviewed. No pertinent past medical history. PAST SURGICAL HISTORY: No past surgical history on file. FAMILY HISTORY: No family history on file. SOCIAL HISTORY: Social History Substance Use Topics ??? Smoking status: Never Smoker ??? Smokeless tobacco: Never Used ??? Alcohol use No Review of Systems Review of Systems HENT: Positive for ear pain. All other systems reviewed and are negative. Physical Exam Filed Vitals: 01/07/18 0149 Pulse: 68 Resp: 18 Temp: 97.5 ??F (36.4 ??C) TempSrc: Temporal SpO2: 100% Weight: 45.6 kg (100 lb 8.5 oz) Height: 5' 2 (1.575 m) Physical Exam Constitutional: She is oriented to person, place, and time. No distress. HENT: Head: Normocephalic and atraumatic. Right Ear: External ear normal. Nose: Nose normal. Mouth/Throat: Oropharynx is clear and moist. Right TM wnl, Left canal erythematous with +exudate present. Unable to visualize left TM. Neck: Normal range of motion. Pulmonary/Chest: Effort normal. Musculoskeletal: Normal range of motion. Neurological: She is alert and oriented to person, place, and time. She exhibits normal muscle tone. Skin: Skin is warm. No rash noted. Diagnostic Studies / Procedures ELECTROCARDIOGRAMS: No results found for this visit on 01/07/18. LABORATORY STUDIES: No results found for this visit on 01/07/18. IMAGING STUDIES No orders to display ED Course / Medical Decision Making MDM Number of Diagnoses or Management Options Otitis externa: Workup Notes Clinical Impression Otitis externa (Primary) Disposition: Discharge Rick Donis MD 01/07/18 0213 * Ranjana Grossman RN - 01/07/2018 1:54 AM CDT Pt here with c/o left ear pain for the last 2 days with increased pain after she went swimming yesterday and got water in the left ear. RANJANA GROSSMAN RN documented in this encounter Plan of Treatment Not on file documented as of this encounter Visit Diagnoses Diagnosis Otitis externa- Primary Infective otitis externa, unspecified documented in this encounter Care Teams Field Liability Generalist Relationship Specialty Start Date End Date Tank Pittman MD PCP - General 01/13/15 documented as of this encounter
--- OUTSIDE RECORDS SUMMARY | 2024-07-05 20:25 | XMS_ITS | Encounter Summary ---
Author Organization [facility] Address [address] [place] [address]. [place], [place] [id number] [place] [address] Care Team Providers Care Typing Checker Name Role Phone Tank Pittman MD Primary Care Provider Unav ailable Encounter Details Date Type Department Care Team (Latest Contact Info) Description 05/30/2024 Travel Social History Tobacco Use Types Packs/Day [...] on filedocumented in this encounter Care Teams Typing Checker Relationship Specialty Start Date End Date Tank Pittman MD PCP - General 01/13/15 documented as of this encounter
--- OUTSIDE RECORDS SUMMARY | 2024-07-05 20:25 | XMS_ITS | Encounter Summary ---
Author Organization [facility] Address [address] [place] [address]. [place], [place] [phone] [place] [address] Care Team Providers Care Substation Electrician Name Role Phone Tank Pittman MD Primary Care Provider Unav ailable Encounter Details Date Type Department Care Team (Late st Contact Info) Description 05/09/2017 [place] [address] , Generic Conversion, Social History Tobacco Use Types Packs/Day Years [...] on filedocumented in this encounter Care Teams Substation Electrician Relationship Specialty Start Date End Date Tank Pittman MD PCP - General 01/13/15 documented as of this encounter
--- OUTSIDE RECORDS SUMMARY | 2024-07-05 20:25 | XMS_ITS | Encounter Summary ---
Author Organization [facility] Address [address] [place] [address]. [place] [address] [place] [address] Care Team Providers Care Measurement Specialist Name Role Phone Tank Pittman MD Primary Care Provider Unav ailable Tank Pittman MD Primary Care Provider Unav ailable Encounter Details Date Type Department Care Team (Late st Contact Info) Description 12/03/2013 Abstract [facility] [address] [place], [place] [id number] Terri Lindquist, IMAGING SCHEDULER [address] [facility] [address] [place] [address] Social History Tobacco Use Types Packs/Day Years Used Date Smoking Tobacco: Never Assessed Comments Unknown Sex and Gender Information Value Date Recorded Sex Assigned at Not on file Legal Sex Female 7:47 PM CDT Gender Identity Not on file Sexual Orientation Not on file documented as of this encounter Plan of Treatment Not on file documented as of this encounter Visit Diagnoses Diagnosis Sprain of wrist Sprain of wrist, unspecified site documented in this encounter Care Teams Measurement Specialist Relationship Specialty Start Date End Date Tank Pittman MD PCP - General 01/13/15 Tank Pittman MD PCP - General 12/03/13 01/12/15 documented as of this encounter
--- OUTSIDE RECORDS SUMMARY | 2024-07-05 20:25 | XMS_ITS | Encounter Summary ---
Author Organization [facility] Address [address] [place] [address]. [place] [address] [place] [address] Care Team Providers Care Development Director Name Role Phone Tank Pittman MD Primary Care Provider Unav ailable Reason for Referral * Imaging (Emergency) - Closed Specialty Diagnoses / Procedures Referred By Feliciano baig Referred To Contact Procedures CT SOFT TISSUE NECK W CON Rosi Whitfield MD [address] [place] [address] Phone: tel: fax: Referral ID Status Reason Start Date Expiration Date Visits Re quested Visits Authorized [id number] Closed 05/02/2018 06/02/2019 1 1 Reason for Visit * Reason Comments Sore Throat Encounter Details Date Type Department Care Team (Late st Contact Info) Description 05/02/2018 10:13 AM CDT - 05/02/2018 3:22 PM CDT Emergency [facility] [place] [address] Rosi Whitfield MD [address] [place] [address] Sore Throat Discharge Disposition: Home or Self [...] Sign Reading Time Taken Comments Blood Pressure 112/60 05/02/2018 2:54 PM CDT Pulse 68 05/02/2018 2:54 PM CDT Temperature 37 ??C (98.6 ??F) 05/02/2018 10:08 AM CDT Respiratory Rate 16 05/02/2018 2:54 PM CDT Oxygen Saturation 98% 05/02/2018 2:54 PM CDT Inhaled Oxygen Concentration - - Weight 47.6 kg (105 lb) 05/02/2018 10:08 AM CDT Height 154.9 cm (5' 1 ) 05/02/2018 10:08 AM CDT Body Mass Index 19.84 05/02/2018 10:08 AM CDT Body Mass Index Percentile 59.38% 05/02/2018 10: 08 AM CDT Growth Chart: [facility] (Girls, 2- 20 Years) documented in this encounter Discharge Instructions * Attachments The following attachments cannot be sent through Care Everywhere. * PERITONSILLAR ABSCESS DISCHARGE INSTRUCTIONS, CHILD ([place]) documented in this encounter Medications at Time of Discharge amoxicillin-clavu lanate (AUGMENTIN ES-600) 600-42.9 MG/5ML suspension Take 7.3 mLs (875 mg total) by mouth every 12 (twelve) hours for 27 doses. 197.1 mL 05/02/2018 05/16/2018 documented as of this encounter ED Notes * Rosi Whitfield MD - 05/02/2018 10:34 AM CDT Chief Complaint Chief Complaint Patient presents with ??? Sore Throat History of Present Illness 12 y/o female with severe sore throat that started 7 days ago and has been worsening over the past week. This morning, she woke up feeling like it is hard to breathe due to her throat. She has been spitting into a bottle rather than swallowing and has had no pain medication because she is having difficulty swallowing. No fever, cough, runny nose, headache or abdominal pain. She gets episodes of tonsillitis 1-2 times per year for the past 3 years. She usually tests negative for strep throat. This is the worst it's ever been. Though it has been worsening throughout the week and is the worst today, she has not noted progression since waking up this morning. Medical History ALLERGIES: No Known Allergies MEDICATIONS: Prior to Admission medications Medication Sig Start Date End Date Taking? Authorizing Provider amoxicillin-clavulanate (AUGMENTIN ES-600) 600-42.9 MG/5ML suspension Take 7.3 mLs (875 mg total) by mouth every 12 (twelve) hours for 27 doses. 05/02/18 05/16/18 Yes Rosi Whitfield MD PAST MEDICAL HISTORY: History reviewed. No pertinent past medical history. Vaccines up to date per dad PAST SURGICAL HISTORY: No past surgical history on file. None FAMILY HISTORY: No family history on file. SOCIAL HISTORY: Social History Tobacco Use ??? Smoking status: Never Smoker ??? Smokeless tobacco: Never Used Substance Use Topics ??? Alcohol use: No ??? Drug use: No Review of Systems Review of Systems Constitutional: Positive for appetite change (difficult to swallow). Negative for fever. HENT: Positive for sore throat. Negative for ear pain and rhinorrhea. Eyes: Negative for discharge and redness. Respiratory: Negative for cough and shortness of breath. Cardiovascular: Negative for chest pain and palpitations. Gastrointestinal: Negative for abdominal pain, diarrhea and vomiting. Genitourinary: Negative for dysuria and hematuria. Musculoskeletal: Negative for arthralgias and myalgias. Neurological: Negative for dizziness and headaches. Physical Exam Filed Vitals: 05/02/18 1008 05/02/18 1231 05/02/18 1454 BP: (!) 108/76 105/66 112/60 Pulse: 93 62 68 Resp: 17 17 16 Temp: 98.6 ??F (37 ??C) TempSrc: Oral SpO2: 100% 100% 98% Weight: 47.6 kg (105 lb) Height: 5' 1 (1.549 m) Physical Exam Constitutional: She appears well-nourished. No distress. Talks in hot potato voice HENT: Head: Normocephalic and atraumatic. Right Ear: External ear normal. Left Ear: External ear normal. Tonsils 3-4 + and red without exudate or ulcers or asymmetry Uvula edematous and red without deviation Eyes: Conjunctivae are normal. Pupils are equal, round, and reactive to light. Right eye exhibits no discharge. Left eye exhibits no discharge. Neck: Normal range of motion. Neck supple. +sub cm posterior cervical adenopathy bilaterally Tonsillar nodes swollen bilaterally R>L (R > 1-2 cm) Cardiovascular: Normal heart sounds. No murmur heard. Pulmonary/Chest: Effort normal and breath sounds normal. Abdominal: Soft. She exhibits no distension. There is no tenderness. Musculoskeletal: She exhibits no tenderness or deformity. Neurological: She is alert. Skin: Skin is warm and dry. Vitals reviewed. Diagnostic Studies / Procedures ELECTROCARDIOGRAMS: No results found for this visit on 05/02/18. LABORATORY STUDIES: Results for orders placed or performed during the hospital encounter of 05/02/18 CBC W/DIFF AUTOMATED Result Value Ref Range WBC 9.3 4.5 - 13.5 x10'3/uL RBC 5.36 4.20 - 5.40 x10'6/uL HGB 14.8 12.0 - 16.0 G/DL HCT 44.8 38.0 - 48.0 % MCV 83.6 80.0 - 94.0 FL MCH 27.6 27.0 - 31.0 PG MCHC 33.0 32.0 - 36.0 G/DL RDW 12.7 11.5 - 14.5 % PLT 303 130 - 400 x10'3/uL MPV 10.6 9.3 - 12.2 FL DIFFERENTIAL TYPE AUTOMATED DIFFERENTIAL NEUTROPHILS 62.4 % LYMPHOCYTES 24.2 % MONOCYTES 8.8 % EOSINOPHILS 4.0 % BASOPHILS 0.4 % IMMATURE GRANS 0.2 (H) 0 % ABS. NEUTROPHILS TOTAL 5.82 1.80 - 8.00 x10'3/uL ABS. LYMPHOCYTES 2.26 1.50 - 6.50 x10'3/uL ABS. MONOCYTES 0.82 0.24 - 0.86 x10'3/uL ABS. EOSINOPHILS 0.37 (H) 0.04 - 0.36 x10'3/uL ABS. BASOPHILS 0.04 0.01 - 0.08 x10'3/uL ABS. IMMATURE GRANULOCYTES 0.02 0.00 - 0.03 x10'3/uL C-REACTIVE PROTEIN Result Value Ref Range C-REACTIVE PROTEIN <0.29 <0.29 mg/dL RAPID STREP A Result Value Ref Range Specimen Type THROAT RAPID STREP TEST NEGATIVE NEGATIVE STREP A, DNA Result Value Ref Range STREP A MOLECULAR NEGATIVE NEGATIVE IMAGING STUDIES CT SOFT TISSUE NECK W CON Final Result by User, [id number] (05/02 120) EXAMINATION: CT soft tissue neck with contrast EXAM DATE/TIME: 05/02/2018 11:38 AM REASON FOR EXAM: Acute tonsillitis COMPARISON: No prior exam TECHNIQUE: CT examination of the neck was performed after administration of intravenous contrast, 75 mL Isovue-300 contrast material. Axial and multiplanar reformatted images were obtained. A dose lowering technique was used for this procedure, which may include, but is not limited to, dose reduction technique, automated exposure control, iterative reconstruction, ALARA (As Low As Reasonably Achievable), or Image Gently techniques. FINDINGS: Both parotid lobes and major salivary glands appear symmetric and unremarkable. The oral cavity, tongue base, valleculae,and oropharynx appear unremarkable. The hypopharynx and pyriformis sinuses reveal no mass lesion. Vocal cords in supra/infraglottic larynx appears normal. The thyroid gland appears normal in size. Tiny, 2 mm, hypodensity within the posterior left thyroid lobe which is of doubtful significance. The visualized neck vasculature appears unremarkable. There is no bulky lymph node enlargement in the neck. The largest lymph nodes are located in bilateral level 2 locations and have short axis diameters of 12 mm or less. Some prominence of the adenoid tissue within the nasopharynx. There is prominence of the palatine tonsils bilaterally. However, there is symmetric enhancement of the palatine tonsils. The parapharyngeal fat is symmetric bilaterally. There is no evidence of tonsillar or peritonsillar phlegmon or abscess. Retropharyngeal soft tissues appear unremarkable. =====IMPRESSION:===== 1. Enlargement of the palatine tonsils with no CT evidence of tonsillar or peritonsillar phlegmon/abscess. 2. No evidence of adenopathy. Course / Medical Decision Making MDM Number of Diagnoses or Management Options Peritonsillar cellulitis: Uvulitis: Diagnosis management comments: 12 y/o fully vaccinated (per dad) afebrile female presents with worsening sore throat x 7 days, enlarged tonsils and edematous uvula -uvulitis and tonsillitis as well as anterior lymphadenitis - will obtain blood work and CT to ensure not suppurative as well as further evaluate airway given sensation of difficulty breathing -already swabbed by nursing for strep -neck is supple making deep space neck infection less likely -no asymmetry to point toward peritonsillar abscess Amount and/or Complexity of Data Reviewed Clinical lab tests: ordered and reviewed Tests in the radiology section of CPT??: ordered and reviewed Obtain history from someone other than the patient: yes (Dad and stepmom) ED Course as of May 02 1503 Sun May 02, 2018 1405 Tolerating PO and desires discharge. Will give first dose of Augmentin here and discharge withreturn precautions if unable to control pain well enough at home to continue to take PO. [AILYN] ED Course User Index [AILYN] Rosi Whitfield MD Clinical Impression Peritonsillar cellulitis (Primary) Uvulitis Discussed diagnosis, expected course, and treatment with family. Discussed follow-up and return precautions. Family voiced understanding and all questions were answered. Patient discharged home with family. Disposition: Discharge Rosi Whitfield MD 05/02/18 1503 * Kaleb Regalado RN - 05/02/2018 10:12 AM CDT Pt to triage with complaint of waking up with swollen tonsils, pt's parents report this has been going on for years , pt denies any pain or other symptoms. Pt does not have a fever. Pt is spitting darryl bottle and reports she can not swallow her secretions. Pt is in no distress at this time. Academic Support Director notified KALEB REGALADO RN documented in this encounter Plan of Treatment Not on file documented as of this encounter Procedures Procedure Name Priority Date/Time Associated Diagnosis Comments CT SOFT TISSUE NECK W CON STAT 05/02/2018 11:56 AM CDT C-REACTIVE PROTEIN STAT 05/02/2018 11 :07 AM CDT CULTURE, BACTERIA, BLOOD STAT 05/02/2018 11:07 AM CDT CBC W/DIFF AUTOMATED STAT 05/02/2018 11:07 AM CDT STREP A, DNA STAT 05/02/2018 10:20 AM CDT RAPID STREP A STAT 05/02/2018 10:20 AM CDT documented in this encounter Results * CT SOFT TISSUE NECK W CON (05/02/2018 11:56 AM CDT) Anatomical Region Laterality Modality Neck Computed Tomogra phy 05/02/2018 12:0 1 PM CDT Impressions 05/02/2018 12:08 PM CDT =====IMPRESSION:===== 1. Enlargement of the palatine tonsils with no CT evidence of tonsillar or peritonsillar phlegmon/abscess. 2. No evidence of adenopathy. Narrative 05/02/2018 12:08 PM CDT EXAMINATION: CT soft tissue neck with contrast EXAM DATE/TIME: 05/02/2018 11:38 AM REASON FOR EXAM: ??Acute tonsillitis ? COMPARISON: No prior exam TECHNIQUE: CT examination of the neck was performed after administration of intravenous contrast, 75 mL Isovue-300 contrast material. Axial and multiplanar reformatted images were obtained. A dose lowering technique was used for this procedure, which may include, but is not limited to, dose reduction technique, automated exposure control, iterative reconstruction, ALARA (As Low As Reasonably Achievable), or Image Gently techniques. FINDINGS: Both parotid lobes and major salivary glands appear symmetric and unremarkable. The ??oral cavity, tongue base, valleculae,and oropharynx appear unremarkable. The hypopharynx and pyriformis sinuses reveal no mass lesion. Vocal cords in supra/infraglottic larynx appears normal. The thyroid gland appears normal in size. Tiny, 2 mm, hypodensity within the posterior left thyroid lobe which is of doubtful significance. The visualized neck vasculature appears unremarkable. There is no bulky lymph node enlargement in the neck. The largest lymph nodes are located in bilateral level 2 locations and have short axis diameters of 12 mm or less. Some prominence of the adenoid tissue within the nasopharynx. There is prominence of the palatine tonsils bilaterally. However, there is symmetric enhancement of the palatine tonsils. The parapharyngeal fat is symmetric bilaterally. There is no evidence of tonsillar or peritonsillar phlegmon or abscess. Retropharyngeal soft tissues appear unremarkable. Procedure Note Yoni Rivas MD - 05/02/2018 EXAMINATION: CT soft tissue neck with contrast EXAM DATE/TIME: 05/02/2018 11:38 AM REASON FOR EXAM: Acute tonsillitis COMPARISON: No prior exam TECHNIQUE: CT examination of the neck was performed after administrationof intravenous contrast, 75 mL Isovue-300 contrast material. Axial and multiplanar reformatted images were obtained. A dose lowering techniquewas used for this procedure, which may include, but is not limited to, dose reduction technique, automated exposure control, iterativereconstruction, ALARA (As Low As Reasonably Achievable), or Image Gently techniques. FINDINGS: Both parotid lobes and major salivary glands appear symmetricand unremarkable. The oral cavity, tongue base, valleculae,and oropharynx appear unremarkable. The hypopharynx and pyriformis sinuses reveal nomass lesion. Vocal cords in supra/infraglottic larynx appears normal. The thyroid gland appears normal in size. Tiny, 2 mm, hypodensity within the posterior left thyroid lobe which is of doubtful significance. The visualized neck vasculature appears unremarkable. There is no bulkylymph node enlargement in the neck. The largest lymph nodes are located in bilateral level 2 locations and have short axis diameters of 12 mm orless. Some prominence of the adenoid tissue within the nasopharynx. There is prominence of the palatine tonsils bilaterally. However, there issymmetric enhancement of the palatine tonsils. The parapharyngeal fat is symmetric bilaterally. There is no evidence of tonsillar or peritonsillar phlegmonor abscess. Retropharyngeal soft tissues appear unremarkable. =====IMPRESSION:===== 1. Enlargement of the palatine tonsils with no CT evidence of tonsillaror peritonsillar phlegmon/abscess. 2. No evidence of adenopathy. us Rosi Whitfield MD CT Final Result * CULTURE BACTERIA, BLOOD (05/02/2018 11:07 AM CDT) SPEC DESCRIPTION BLOOD 05/02/2018 11:05 AM CDT [facility] SPECIAL REQUESTS NO SPECIAL REQUEST 05/02/2018 11:05 AM CDT [facility] CULTURE RESULT NO GROWTH 5 DAYS 05/07/2018 11:47 AM CDT [facility] BLOOD SPECIMEN OBTAINED FOR BLOOD CULTURE / Unknown 05/02/2018 11:07 AM CDT 05/02/2018 11:12 AM CDT us Rosi Whitfield MD MICROBIOLOGY - GENERAL ORDER HARMONY Final Result [facility] [address] [place] [address], [place] [phone] * C-REACTIVE PROTEIN (05/02/2018 11:07 AM CDT) C-REACTIVE PROTEIN <0.29 <0.29 mg/dL 05/02/2018 11:28 AM CDT [facility] 05/02/2018 11:0 7 AM CDT us Rosi Whitfield MD LABORATORY Final Result [facility] [address] [place] [address], * (ABNORMAL) CBC W/DIFF AUTOMATED (05/02/2018 11:07 AM CDT) [facility] WBC 9.3 4.5 - 13.5 x10'3/uL 05/02/2018 11:17 AM CDT [facility] RBC 5.36 4.20 - 5.40 x10'6/uL 05/02/2018 11:17 AM CDT [facility] HGB 14.8 12.0 - 16.0 G/DL 05/02/2018 11:17 AM CDT [facility] HCT 44.8 38.0 - 48.0 % 05/02/2018 11:17 AM CDT [facility] MCV 83.6 80.0 - 94.0 FL 05/02/2018 11:17 AM CDT [facility] MCH 27.6 27.0 - 31.0 PG 05/02/2018 11:17 AM CDT [facility] MCHC 33.0 32.0 - 36.0 G/DL 05/02/2018 11:17 AM CDT [facility] RDW 12.7 11.5 - 14.5 % 05/02/2018 11:17 AM CDT [facility] PLT 303 130 - 400 x10'3/uL 05/02/2018 11:17 AM CDT [facility] MPV 10.6 9.3 - 12.2 FL 05/02/2018 11:17 AM CDT [facility] DIFFERENTIAL TYPE AUTOMATED DIFFERENTIAL 05/02/2018 11:17 AM CDT [facility] NEUTROPHILS % 62.4 % 05/02/2018 11:17 AM CDT [facility] LYMPHOCYTES % 24.2 % 05/02/2018 11:17 AM CDT [facility] MONOCYTES % 8.8 % 05/02/2018 11:17 AM CDT [facility] EOSINOPHILS 4.0 % 05/02/2018 11:17 AM CDT [facility] BASOPHILS 0.4 % 05/02/2018 11:17 AM CDT [facility] IMMATURE GRANS % 0.2(H) 0 % 05/02/20 18 11:17 AM CDT [facility] ABS. NEUTROPHILS TOTAL 5.82 1.80 - 8.00 x10'3/uL 05/02/2018 11:17 AM CDT [facility] ABS. LYMPHOCYTES 2.26 1.50 - 6.50 x10'3/uL 05/02/2018 11:17 AM CDT [facility] ABS. MONOCYTES 0.82 0.24 - 0.86 x10'3/uL 05/02/2018 11:17 AM CDT [facility] ABS. EOSINOPHILS 0.37(H) 0.04 - 0.36 x10'3/uL 05/02/2018 11:17 AM CDT [facility] ABS. BASOPHILS 0.04 0.01 - 0.08 x10'3/uL 05/02/2018 11:17 AM CDT [facility] ABS. IMMATURE GRANULOCYTES 0.02 0.00 - 0.03 x10'3/uL 05/02/2018 11:17 AM CDT [facility] 05/02/2018 11:0 7 AM CDT Rosi Whitfield MD LABORATORY Final Result [facility] [address] [place] [address], [place] [phone] * STREP A, DNA (05/02/2018 10:20 AM CDT) STREP A MOLECULAR NEGATIVE NEGATIVE 018 2:15 PM CDT [facility] Comment:SPECIMEN NEGATIVE FO R GROUP A STREPTOCOCCUS BY DNA AMPLIFICATION 05/02/2018 10:2 0 AM CDT us Rosi Whitfield MD MICROBIOLOGY - GENERAL ORDER HARMONY Final Result Performing Organization Address City/[facility]/ZIP Co de Phone Number [facility] [address] [place] [address], [place] [phone] * RAPID STREP A (05/02/2018 10:20 AM CDT) SPECIMEN TYPE THROAT 05/02/2018 10:20 AM CDT [facility] RAPID STREP TEST NEGATIVE NEGATIVE 05/02/2018 10:34 AM CDT [facility] STRUCTURE OF ANTERIOR PORTION OF NECK / Unknown 05/02/2018 10:20 AM CDT us Rosi Whitfield MD MICROBIOLOGY - GENERAL ORDER HARMONY Final Result Performing Organization Address City/[facility] Co de Phone Number [facility] [address] [place] [address], [place] [phone] documented in this encounter Visit Diagnoses Diagnosis Peritonsillar cellulitis- Primary Peritonsillar abscess Uvulitis Cellulitis and abscess of oral soft tissues documented in this encounter Administered Medications Inactive Administered Medications - up to 3 most recent administrations Medication Order MAR Action Action Date Dose Rate Site amoxicillin-clavulanate (AUGMENTIN) 875-125 MG tablet 875 mg 875 mg, Oral, Once, 1 dose, On 05/02/18 at 1400, OK to crush and give. Given 05/02/2018 2:55 PM CDT 875 mg iopamidol (ISOVUE-370) 76 % injection 80 mL 80 mL, Intravenous, IMG once as needed, Contrast, 1 dose, Starting on 05/02/18 at 1157, Until 05/02/18 at 1157 Given 05/02/2018 11:57 AM CDT 80 mLs Right Arm ketorolac (TORADOL) injection 15 mg 15 mg, Intravenous, Once, 1 dose, On 05/02/18 at 1100, For IV administration, give over 15 seconds. Given 05/02/2018 11:19 AM CDT 15 mg sodium chloride 0.9% bolus infusion SOLN 1,000 mL 1,000 mL, Intravenous, Administer over 60 Minutes, Bolus (Once), 1 dose, On 05/02/18 at 1100 New Bag 05/02/2018 11:20 AM CDT 1,000 mLs documented in this encounter Active and Recently Administered Medications Times are shown in CDT. Scheduled Medication Order 04/30/2018 05/01/2018 05/02/2018 amoxicillin-clavulanate (AUGMENTIN) 875-125 MG tablet 875 mg (COMPLETED) 875 mg, Oral, Once, 1 dose, On 05/02/18 at 1400, OK to crush and give. 1455 (Given - Provid er: Hill Louis, ROE) ketorolac (TORADOL) injection 15 mg (COMPLETED) 15 mg, Intravenous, Once, 1 dose, On 05/02/18 at 1100, For IV administration, give over 15 seconds. 1119 (Given - Provid er: Donis Hay, ROE) sodium chloride 0.9% bolus infusion SOLN 1,000 mL (COMPLETED) 1,000 mL, Intravenous, Administer over 60 Minutes, Bolus (Once), 1 dose, On 05/02/18 at 1100 1120 (New Bag - Prov ider: Donis Hay, ROE)1314 (Infusion Stop Time - Provider: Hill Louis, ROE) PRN Medication Order 04/30/2018 05/01/2018 05/02/2018 iopamidol (ISOVUE-370) 76 % injection 80 mL (COMPLETED) 80 mL, Intravenous, IMG once as needed, Contrast, 1 dose, Starting on 05/02/18 at 1157, Until 05/02/18 at 1157 1157 (Given - Provid er: Sumanth Crenshaw RTR) documented in this encounter Care Teams Development Director Relationship Specialty Start Date End Date Tank Pittman MD PCP - General 01/13/15 documented as of this encounter
--- OUTSIDE RECORDS SUMMARY | 2024-07-05 20:25 | XMS_ITS | Encounter Summary ---
Author Organization [facility] Address [address] [place] [address]. [place] [address] [place] [address] Care Team Providers Care Health Information Coder Name Role Phone Tank Pittman MD Primary Care Provider Unav ailable Encounter Details Date Type Department Care Team (Late st Contact Info) Description 01/13/[address] [facility] [address] [place] [address] Prasanth Zimmerman, [facility] [address] [facility] [phone] Social History Tobacco Use Types Packs/Day Years Used Date Smoking Tobacco: Never Assessed Comments Unknown Sex and Gender Information Value Date Recorded Sex Assigned at Not on file Legal Sex Female 7:47 PM CDT Gender Identity Not on file Sexual Orientation Not on file documented as of this encounter Plan of Treatment Not on file documented as of this encounter Visit Diagnoses Diagnosis Contact dermatitis and other eczema due to plants (except food) documented in this encounter Care Teams Health Information Coder Relationship Specialty Start Date End Date Tank Pittman MD PCP - General 01/13/15 documented as of this encounter
--- OUTSIDE RECORDS SUMMARY | 2024-07-05 20:25 | XMS_ITS | Clinical Summary ---
Author Organization [facility] Address [address] [place] [address]. [place] [address] [place] [address] Care Team Providers Care Biodiesel Production Technician Name Role Phone Tank Pittman MD Primary Care Provider Unav ailable Allergies No known active allergies Encounters Date Type Department Care Team Description 05/30/2024 7:05 PM HEMATOLOGIST - 05/30/2024 8:39 PM HEMATOLOGIST Emergency [facility] [place] [address] Franco Wilson PA Pleuritic Chest Pain Discharge Disposition: Home or Self Care (Routine Discharge) 05/30/2024 Travel from Last 3 Months Social History Tobacco Use Types Packs/Day Years [...] Sign Reading Time Taken Comments Blood Pressure 121/76 05/30/2024 8:33 PM HEMATOLOGIST Pulse 74 05/30/2024 8:33 PM HEMATOLOGIST Temperature 36.8 ??C (98.2 ??F) 05/30/2024 8:33 PM CS T Respiratory Rate 18 05/30/2024 8:33 PM HEMATOLOGIST Oxygen Saturation 100% 05/30/2024 8:33 PM HEMATOLOGIST Inhaled Oxygen Concentration - - Weight 55.8 kg (123 lb) 05/30/2024 6:49 PM HEMATOLOGIST Height 154.9 cm (5' 1 ) 05/30/2024 6:49 PM HEMATOLOGIST Body Mass Index 23.24 05/30/2024 6:49 PM HEMATOLOGIST Plan of Treatment Health Maintenance Due Date Last Done Comments Annual Physical 09/07/2007 Hepatitis C 2022 COVID-19 Vaccine ( season) 2024 Influenza Adult (#1) 2024 DTaP, Tdap and Td Vaccines (7 - Td or Tdap) 03/19/2026 03/19/2016, 03/12/2010, 02/07/2006, Additional history exists Hepatitis B Vaccines Completed 05/12/2005, 05/12/2005, 01/21/2005, Additional history exists Pneumococcal Vaccine: Pediatrics (0 to 5 Years) and At-Risk Patients (6 to 64 Years) Aged Out 02/07/2006, 05/12/2005 No longer eligibl e based on patient's age to complete this topic HPV Vaccines Completed 05/29/2021, 03/30/2019 Meningococcal Vaccine Completed 05/29/2021, 016 RSV Immunizations Under 20 Months Aged Out No longer eligible based on patient's age to complete this topic Procedures Procedure Name Priority Date/Time Associated Diagnosis Comments CTA CHEST PE PROTOCOL STAT 05/30/2024 8:00 PM HEMATOLOGIST XR CHEST PA+LAT STAT 05/30/2024 7:32 PM HEMATOLOGIST HC URINALYSIS AUTO W/O MICRO STAT 05/30/2024 7:26 PM HEMATOLOGIST POCT URINE (BACK OFFICE) STAT 05/30/2024 7:20 PM HEMATOLOGIST D-DIMER, QUANTITATIVE STAT 05/30/2024 7:13 PM HEMATOLOGIST COMPREHENSIVE METABOLIC PANEL STAT 05/30/2024 7:13 PM HEMATOLOGIST CBC W/DIFF AUTOMATED STAT 05/30/2024 7:13 PM HEMATOLOGIST TROPONIN, QUANT STAT 05/30/2024 7:13 PM HEMATOLOGIST ECG 12-LEAD STAT 05/30/2024 7:08 PM HEMATOLOGIST from Last 3 Months Results * CTA CHEST PE PROTOCOL (05/30/2024 8:00 PM HEMATOLOGIST) Anatomical Region Laterality Modality Chest Computed Tomogra phy 05/30/2024 8:08 PM HEMATOLOGIST Impressions 05/30/2024 8:12 PM HEMATOLOGIST IMPRESSION: 1. ??There is no acute pulmonary embolism to the first subsegmental pulmonary artery level. 2. ??No acute abnormality is seen within the chest. Ordered By: FRANCO WILSON Interpreted By: Estee Mijares MD, 05/30/2024 8:08 PM Narrative 05/30/2024 8:12 PM HEMATOLOGIST [place] [id number] PROCEDURE: ??CTA CHEST PE PROTOCOL. HISTORY: ??Evaluate for pulmonary embolism. ??Chest pain. TECHNIQUE: ??Contrast enhanced helical CT pulmonary angiography was then performed (Isovue-370, 80 mL). ??Routine transaxial and post-processed (sagittal and coronal MPR) reformations of the acquired data sets were obtained. ??Standard 3-D (MIP) reformations of the acquired data sets were also obtained. ?? A dose lowering technique was used for this procedure, which may include, but is not limited to, dose reduction technique, automated exposure control, the use of iterative reconstruction, and ALARA (As Low As Reasonably Achievable) / Image Gently techniques. COMPARISON: ??PA and lateral chest radiograph, 05/30/2024. PULMONARY CTA FINDINGS: ??This is a diagnostic quality helical CT pulmonary angiogram. ??There is no acute pulmonary embolism to the first subsegmental pulmonary artery level. OTHER FINDINGS: ?? Support Devices: ??None. Heart/Pericardium/Great Vessels: ? Cardiac size is normal. ? Calcific coronary artery atherosclerosis cannot be accurately evaluated on this contrast-enhanced exam. ? There is no pericardial effusion. ? There is no thoracic aortic or branch vessel calcific atherosclerosis. ? The main pulmonary artery is normal in diameter. The mid ascending thoracic aorta measures up to 2.6 cm. Pleural Spaces: ??The pleural spaces are clear. Mediastinum/Shira: ??There is no mediastinal or hilar lymph node enlargement. Soft tissue density within the anterior mediastinum, compatible with residual thymic tissue. Neck Base/Chest Wall/Diaphragm/Upper Abdomen: ??There is no supraclavicular or axillary lymph node enlargement. ??Limited imaging through the upper abdomen is within normal limits. No aggressive osseous lesions are identified. Lungs/Central Airways: ??The trachea and central airways are clear and normal in caliber. No focal consolidation. Procedure Note Estee Mijares MD - 05/30/[address] [address] PROCEDURE: CTA CHEST PE PROTOCOL. HISTORY: Evaluate for pulmonary embolism. Chest pain. TECHNIQUE: Contrast enhanced helical CT pulmonary angiography was thenperformed (Isovue-370, 80 mL). Routine transaxial and post-processed(sagittal and coronal MPR) reformations of the acquired data sets wereobtained. Standard 3-D (MIP) reformations of the acquired data sets werealso obtained. A dose lowering technique was used for this procedure, which may include,but is not limited to, dose reduction technique, automated exposurecontrol, the use of iterative reconstruction, and ALARA (As Low AsReasonably Achievable) / Image Gently techniques. COMPARISON: PA and lateral chest radiograph, 05/30/2024. PULMONARY CTA FINDINGS: This is a diagnostic quality helical CT pulmonaryangiogram. There is no acute pulmonary embolism to the first subsegmentalpulmonary artery level. OTHER FINDINGS: Support Devices: None. Heart/Pericardium/Great Vessels: Cardiac size is normal. Calcific coronary artery atherosclerosis cannot be accuratelyevaluated on this contrast-enhanced exam. There is no pericardial effusion. There is no thoracic aortic or branch vessel calcificatherosclerosis. The main pulmonary artery is normal in diameter. The mid ascendingthoracic aorta measures up to 2.6 cm. Pleural Spaces: The pleural spaces are clear. Mediastinum/Shira: There is no mediastinal or hilar lymph nodeenlargement. Soft tissue density within the anterior mediastinum,compatible with residual thymic tissue. Neck Base/Chest Wall/Diaphragm/Upper Abdomen: There is no supraclavicularor axillary lymph node enlargement. Limited imaging through the upperabdomen is within normal limits. No aggressive osseous lesions areidentified. Lungs/Central Airways: The trachea and central airways are clear andnormal in caliber. No focal consolidation. IMPRESSION: 1. There is no acute pulmonary embolism to the first subsegmentalpulmonary artery level. 2. No acute abnormality is seen within the chest. Ordered By: FRANCO WILSON Interpreted By: Estee Mijares MD, 05/30/2024 8:08 PM us Franco Wilson PA CT Final Resu lt * XR CHEST PA+LAT (05/30/2024 7:32 PM HEMATOLOGIST) Anatomical Region Laterality Modality Chest Radiographic Candy ging 05/30/2024 7:33 PM HEMATOLOGIST Impressions 05/30/2024 7:33 PM HEMATOLOGIST IMPRESSION: No radiographic evidence of an acute cardiopulmonary abnormality. Ordered By: FRANCO WILSON Interpreted By: Teddy Rush MD, 05/30/2024 7:33 PM Narrative 05/30/2024 7:33 PM HEMATOLOGIST [address] [address] Examination: Chest radiographs Exam date/time: 05/30/2024 7:22 PM Reason For Exam: ??Chest pain ?? Comparison: None available Technique: PA and lateral views of the chest. Findings: Heart size is normal. Pulmonary vascular pattern appears unremarkable. No focal pulmonary consolidation. No pleural effusion. No pneumothorax. Thoracic vertebral body heights are preserved. Procedure Note Teddy Rush MD - 05/30/2024 [facility] [address] [place], [place] [address] Examination: Chest radiographs Exam date/time: 05/30/2024 7:22 PM Reason For Exam: Chest pain Comparison: None available Technique: PA and lateral views of the chest. Findings: Heart size is normal. Pulmonary vascular pattern appearsunremarkable. No focal pulmonary consolidation. No pleural effusion. Nopneumothorax. Thoracic vertebral body heights are preserved. IMPRESSION: No radiographic evidence of an acute cardiopulmonary abnormality. Ordered By: FRANCO WILSON Interpreted By: Teddy Rush MD, 05/30/2024 7:33 PM [facility] Final Resu lt * (ABNORMAL) URINALYSIS (05/30/2024 7:26 PM HEMATOLOGIST) SPECIMEN TYPE URINE CLEAN CATCH 05/30/2024 7:27 PM HEMATOLOGIST [facility] COLOR (U) COLORLESS 05/30/2024 7:[address] [facility] TRANSPARENCY TURBID 05/30/2024 7:[address] [facility] SPECIFIC GRAVITY (U) 1.013 1.001 - 1.030 05/30/2024 7:[address] [facility] U PH 7.0 5.0 - 9.0 05/30/2024 7:[address] [facility] LEUKOCYTES (U) NEGATIVE NEGATIVE 05/30/2024 7:[address] [facility] NITRITES NEGATIVE NEGATIVE 05/30/2024 7:[address] [facility] PROTEIN RANDOM (U) NEGATIVE <30 MG/DL 05/30/2024 7:[address] [facility] GLUCOSE (U) NORMAL NORMAL MG/DL 05/30/2024 7:47 PM HEMATOLOGIST [facility] KETONES MG/DL (U) NEGATIVE NEGATIVE MG/DL 05/30/2024 7:47 PM HEMATOLOGIST [facility] UROBILINOGEN NORMAL NORMAL MG/DL 05/30/2024 7:47 PM HEMATOLOGIST [facility] BILIRUBIN (U) NEGATIVE NEGATIVE MG/DL 05/30/2024 7:47 PM HEMATOLOGIST [facility] BLOOD (U) 3+(A) NEGATIVE 05/30/2024 7:47 PM HEMATOLOGIST [facility] WBC/HPF 1 <6 /HPF 05/30/2024 7:47 PM HEMATOLOGIST [facility] RBC/HPF >100(H) <6 /HPF 05/30/2024 7:47 PM HEMATOLOGIST [facility] BACTERIA (U) RARE(A) NONE /HPF 05/30/2024 7:47 PM HEMATOLOGIST [facility] BUDDING YEAST RARE(A) NONE /HPF 05/30/2024 7:47 PM HEMATOLOGIST [facility] SQUAMOUS EPITHELIALS RARE /HPF 05/30/2024 7:47 PM HEMATOLOGIST [facility] URINE SPECIMEN OBTAINED BY CLEAN CATCH PROCEDURE / Unknown 05/30/2024 7:26 PM HEMATOLOGIST Franco [facility]LEMAN URINE ORDERABLES Final Res ult [facility] [address] [place] [address], [place] [phone] * POCT urine (05/30/2024 7:20 PM HEMATOLOGIST) URINE HCG TEST NEGATIVE Internal Control: VALID us Franco [facility] POINT OF CARE TEST ORDERAB LES Final Result * (ABNORMAL) COMPREHENSIVE METABOLIC PANEL (05/30/2024 7:13 PM HEMATOLOGIST) [facility] GLUCOSE 98 70 - 99 MG/DL 05/30/2024 7:[address] [facility] BUN 10 7 - 18 MG/DL 05/30/2024 7:[address] [facility] CREATININE S/P/B 0.76 0.55 - 1.02 MG/DL 05/30/2024 7:[address] [facility] SODIUM S/P/B 139 136 - 145 MMOL/L 05/30/2024 7:[address] [facility] POTASSIUM S/P/B 3.5 3.5 - 5.1 MMOL/L 05/30/2024 7:[address] [facility] CHLORIDE S/P/B 107 97 - 115 MMOL/L 05/30/2024 7:[address] [facility] CO2 26.4 21 - 32 MMOL/L 05/30/2024 7:[address] [facility] CALCIUM S/P/B 9.3 8.5 - 10.1 MG/DL 05/30/2024 7:[address] [facility] BILIRUBIN TOTAL S/P/B 0.3 0.2 - 1.1 MG/DL 05/30/2024 7:[address] [facility] Comment: THIS ASSAY IS NOT RECOMMENDED FOR PATIENTS UNDERGOING TREATMENT WITH ELTROMBOPAG DUE TO THE POTENTIAL FOR FALSELY ELEVATED RESULTS. TOTAL PROTEIN S/P/B 8.0 6.4 - 8.2 G/DL 05/30/2024 7:[address] [facility] ALBUMIN S/P/B 4.2 3.4 - 5.0 G/DL 05/30/2024 7:[address] [facility] AST 13(L) 15 - 37 U/L 05/30/2024 7:[address] [facility] ALT 20 14 - 55 U/L 05/30/2024 7:40 PM HEMATOLOGIST [facility] ALKALINE PHOSPHATASE S/P/B 90 50 - 136 U/L 05/30/2024 7:40 PM HEMATOLOGIST [facility] ANION GAP 5.6 2 - 10 MMOL/L 05/30/2024 7:40 PM HEMATOLOGIST [facility] BUN CREATININE RATIO 13.1 6 - 26 05/30/2024 7:40 PM HEMATOLOGIST [facility] A/G RATIO 1.1 1.0 - 2.0 RATIO 05/30/2024 7:[address] [facility] GFR ESTIMATE >90 >90 ML/MIN/1.7 3 M2 05/30/2024 7:40 PM HEMATOLOGIST [facility] Comment: NOTE: eGFR is not calculated for patients <18 years of age or gender unknown. This is an estimated GFR calculation using the new CKD EPI creatinine equation without race and so does not require a correction factor for race. This estimated GFR should not be used for calculating drug doses. 05/30/2024 7:13 PM HEMATOLOGIST us [facility] Final Resu lt [facility] [address] [place] [address], * (ABNORMAL) D-DIMER, QUANTITATIVE (05/30/2024 7:13 PM HEMATOLOGIST) [facility] D-DIMER 843(HH) 0 - 500 ng{FEU}/mL 05/30/2024 7:44 PM HEMATOLOGIST [facility] Comment: D-Dimer values less than or equal to 500 ng/mL FEU have a negative predictive value of >95% for exclusion of deep vein thrombosis and pulmonary embolism. In patients over 50 (who tend to have higher normal baseline D-Dimer values), recent studies suggest age-adjusted D-Dimer cutoff values (calculated as: age [years] x 10 ng/mL) result in equivalent outcomes and no additional false negative findings. Successful Call: DDIMR called 05/30/2024 07:44 PM to EMERGENCY ROOM (Marianna/ELISA DEVINE) by [id number]. Read Back: Yes 05/30/2024 7:13 PM HEMATOLOGIST us [facility] Final Resu lt [facility] [address] [place] [address], [place] [phone] * CBC W/DIFF AUTOMATED (05/30/2024 7:13 PM HEMATOLOGIST) WBC 7.35 4.5 - 13.0 x10'3/uL 05/30/2024 7:25 PM HEMATOLOGIST [facility] RBC 5.29 4.20 - 5.40 x10'6/uL 05/30/2024 7:25 PM HEMATOLOGIST [facility] HGB 15.2 12.0 - 16.0 G/DL 05/30/2024 7:25 PM HEMATOLOGIST [facility] HCT 44.2 38.0 - 48.0 % 05/30/2024 7:25 PM HEMATOLOGIST [facility] MCV 83.6 81.0 - 99.0 FL 05/30/2024 7:25 PM HEMATOLOGIST [facility] MCH 28.7 27.0 - 31.0 PG 05/30/2024 7:25 PM HEMATOLOGIST [facility] MCHC 34.4 32.0 - 36.0 G/DL 05/30/2024 7:25 PM HEMATOLOGIST [facility] RDW 12.2 11.5 - 14.5 % 05/30/2024 7:25 PM HEMATOLOGIST [facility] PLT 231 130 - 400 x10'3/uL 05/30/2024 7:25 PM HEMATOLOGIST [facility] MPV 10.9 9.3 - 12.2 FL 05/30/2024 7:[address] [facility] DIFFERENTIAL TYPE AUTOMATED DIFFERENTIAL 05/30/2024 7:25 PM HEMATOLOGIST [facility] NEUTROPHILS % 52.0 % 05/30/2024 7:25 PM HEMATOLOGIST [facility] LYMPHOCYTES % 35.6 % 05/30/2024 7:25 PM HEMATOLOGIST [facility] MONOCYTES % 8.6 % 05/30/2024 7:25 PM HEMATOLOGIST [facility] EOSINOPHILS 3.0 % 05/30/2024 7:[address] [facility] BASOPHILS 0.7 % 05/30/2024 7:[address] [facility] IMMATURE GRANS % 0.1 % 05/30/20 7:25 PM HEMATOLOGIST [facility] ABS. NEUTROPHILS 3.82 1.80 - 8.00 x10'3/uL 05/30/2024 7:[address] [facility] ABS. LYMPHOCYTES 2.62 1.20 - 5.20 x10'3/uL 05/30/2024 7:[address] [facility] ABS. MONOCYTES 0.63 0.24 - 0.86 x10'3/uL 05/30/2024 7:25 PM HEMATOLOGIST [facility] ABS. EOSINOPHILS 0.22 0.04 - 0.36 x10'3/uL 05/30/2024 7:[address] [facility] ABS. BASOPHILS 0.05 0.01 - 0.08 x10'3/uL 05/30/2024 7:[address] [facility] ABS. IMMATURE GRANULOCYTES 0.01 0.00 - 0.49 x10'3/uL 05/30/2024 7:25 PM HEMATOLOGIST [facility] 05/30/2024 7:13 PM HEMATOLOGIST [facility] Final Resu lt Performing Organization Address [facility] Co de Phone Number [address] [address], * TROPONIN, QUANT (05/30/2024 7:13 PM HEMATOLOGIST) TROPONIN I HIGH SENSITIVITY <3 <54 ng/L 05/30/2024 7:40 PM HEMATOLOGIST [facility] Comment: HIGH DOSES OF BIOTIN, TROPONIN-SPECIFIC AUTOANTIBODIES, AND ANTIBODY THERAPY CONTAINING HAMA MAY INTERFERE WITH THIS TEST RESULT. CORRELATION TO CLINICAL HISTORY AND PRESENTATION RECOMMENDED. 05/30/2024 7:13 PM HEMATOLOGIST [facility] Final Resu lt Performing Organization Address [facility] Co de Phone Number [facility] [address] [place] [address], * ECG 12 lead (05/30/2024 7:08 PM HEMATOLOGIST) 05/30/2024 7:08 PM HEMATOLOGIST Narrative [facility] - 05/31/2024 7:35 PM HEMATOLOGIST ?[facility] ? [address] [facility] [place] ? Test Date: ?2024-05-30 Pat Name: ? GRACIELA RESTOFF ? Department: ?? 41 ? Room: ? TG3 Gender: ? Female ? Wool Merchant: ?? [id number] : ?2005 ? Requested By: FRANCO WILSON Order Number: [id number] ? Reading MD: ?? Paban Altagracia ? Measurements Intervals ?[place] ? Rate: ? 98 ? P: ?74 [place]: ? 113 ?QRS: ?80 QRSD: ? 79 ? T: ?27 QT: ? 318 ? QTc: ?406 ? Interpretive Statements SINUS RHYTHM WITH SINUS ARRHYTHMIA WITH SHORT [place] INTERVAL POSSIBLE LEFT ATRIAL ENLARGEMENT ??[-0.1mV P-WAVE IN V1/V2] NONSPECIFIC T-WAVE ABNORMALITY No previous ECG available for comparison TOLOGIST Procedure Note Mary Frias MD - 05/31/[address] [facility] [facility] [address] Test Date: 2024-05-30 Pat Name: RESTOFF Department: Room: 3 Gender: Female Wool Merchant: [id number] : 2005 Requested By: FRANCO WILSON Order Number: [id number] Reading MD: Mary Frias Measurements Intervals [place] Rate: 98 P: 74 [place]: 113 QRS: 80 QRSD: 79 T: 27 QT: 318 QTc: 406 Interpretive Statements SINUS RHYTHM WITH SINUS ARRHYTHMIA WITH SHORT [place] INTERVAL POSSIBLE LEFT ATRIAL ENLARGEMENT [-0.1mV P-WAVE IN V1/V2] NONSPECIFIC T-WAVE ABNORMALITY No previous ECG available for comparison TOLOGIST us Franco [facility] ECG ORDERABLES Final Resu lt [facility] from Last 3 Months Care Teams Biodiesel Production Technician Relationship Specialty Start Date End Date Tank Pittman MD PCP - General 01/13/15
--- OUTSIDE RECORDS SUMMARY | 2024-07-05 20:25 | XMS_ITS | Encounter Summary ---
Author Organization [facility] Address [address] [place] [address]. [place] [address] [place] [address] Care Team Providers Care Biomedical Field Service Engineer Name Role Phone Tank Andujar MD Primary Care Provider Unav ailable Reason for Referral * Imaging (Urgent) - New Request Specialty Diagnoses / Procedures Referred By Contjose t Referred To Contact RADIOLOGY Procedures CTA CHEST PE PROTOCOL Franco Shipley PA [address] [place] [address] Phone: tel: fax: Referral ID Status Reason Start Date Expiration Date V isits Requested Visits Authorized [id number] New Request 05/30/2024 05/30/2025 1 1 RAL MAINTENANCE TECHNICIAN Reason for Visit * Reason Comments Pleuritic Chest Pain Encounter Details Date Type Department Care Team (Late st Contact Info) Description 05/30/2024 7:05 PM GENERAL MAINTENANCE TECHNICIAN - 05/30/2024 8:39 PM GENERAL MAINTENANCE TECHNICIAN Emergency [facility] [place] [address] Franco Shipley PA [address] [place] [address] Pleuritic Chest Pain Discharge Disposition: Home or [...] Comments Blood Pressure 121/76 05/30/2024 8:33 PM GENERAL MAINTENANCE TECHNICIAN Pulse 74 05/30/2024 8:33 PM GENERAL MAINTENANCE TECHNICIAN Temperature 36.8 ??C (98.2 ??F) 05/30/2024 8:33 PM CS T Respiratory Rate 18 05/30/2024 8:33 PM GENERAL MAINTENANCE TECHNICIAN Oxygen Saturation 100% 05/30/2024 8:33 PM GENERAL MAINTENANCE TECHNICIAN Inhaled Oxygen Concentration - - Weight 55.8 kg (123 lb) 05/30/2024 6:49 PM GENERAL MAINTENANCE TECHNICIAN Height 154.9 cm (5' 1 ) 05/30/2024 6:49 PM GENERAL MAINTENANCE TECHNICIAN Body Mass Index 23.24 05/30/2024 6:49 PM GENERAL MAINTENANCE TECHNICIAN documented in this encounter Discharge Instructions * Discharge Instructions* LOVE Treviño - 05/30/2024 8:27 PM GENERAL MAINTENANCE TECHNICIAN Take tylenol or motrin as needed for pain. Get extra rest Drink plenty of fluids (water). RAL MAINTENANCE TECHNICIAN * Attachments The following attachments cannot be sent through Care Everywhere. * Chest Pain That Is Not Caused by the Heart Discharge Instructions (Bahamian) documented in this encounter ED Notes * Maylin Cueto RN - 05/30/2024 8:38 PM CST Pt discharged home, discharge instructions reviewed at length including pain control, and signs andsymptoms of worsening condition and when to return to ED. NO further questions at this time. IVL removed. PT ambulated out of ED and left via POV with parents. RAL MAINTENANCE TECHNICIAN * LOVE Treviño - 05/30/2024 8:22 PM CST [place], [place] EMERGENCY DEPARTMENT ENCOUNTER HISTORICAL INFORMATION Primary Care Doctor: TANK ANDUJAR MD (Inactive) Patient information was obtained primarily from the patient, nursing notes History/Exam limitations: None Provider at Bedside Date/Time Event User Comments 05/30/241857 Provider at Bedside Assessing Patient FRANCO SHIPLEY -- CHIEF COMPLAINT Pleuritic Chest Pain HPI Graciela Garza is a 18-year-old female who presents with left sided cp starting several hours ago. Pt states pain is somewhat worse with deep inspiration. +sob. Pt denies hx of similar symptoms. PAST MEDICAL HISTORY History reviewed. No pertinent past medical history. Negative unless otherwise noted SURGICAL HISTORY Past Surgical History: Procedure Laterality Date REMOVAL OF TONSILS,11+ Y/O Bilateral Negative unless otherwise noted CURRENT MEDICATIONS No current facility-administered medications for this encounter. No current outpatient medications on file. ALLERGIES Review of patient's allergies indicates: No Known Allergies FAMILY HISTORY No family history on file. Negative unless otherwise noted SOCIAL HISTORY Social History Socioeconomic History Marital status: Single Tobacco Use Smoking status: Never Smokeless tobacco: Never Substance and Sexual Activity Alcohol use: No Drug use: Not Currently Negative unless otherwise noted REVIEW OF SYSTEMS See HPI. All other systems reviewed and negative PHYSICAL EXAM VITAL SIGNS: Filed Vitals: 05/30/24 1849 05/30/242032 BP: (!) 129/94 121/76 Pulse: 88 74 Resp: 18 18 Temp: 98.1 ??F (36.7 ??C) 98.2 ??F (36.8 ??C) TempSrc: Temporal Oral SpO2: 99% 100% Weight: 55.8 kg (123 lb) Height: 1.549 m (5' 1 ) Constitutional: Well developed, Well nourished, No acute distress, Non-toxic appearance. HENT: Normocephalic, Atraumatic, Bilateral external ears normal, Oropharynx moist, Eyes: PERRL, EOMI, Conjunctiva normal, No discharge. Neck- Normal range of motion, No tenderness, Supple, No stridor. Respiratory: Normal breath sounds, No respiratory distress. Cardiovascular: Normal heart rate, Normal rhythm, no chest wall tenderness GI: nd Musculoskeletal: Intact distal pulses, No edema, No tenderness, No cyanosis, No clubbing. Good range of motion in all major joints. No tenderness to palpation or major deformities noted. Back- No tenderness. Integument: Warm, Dry, No erythema, No rash. Lymphatic: No lymphadenopathy noted. Neurologic: Alert & oriented x 3, Psychiatric: Affect normal, Judgment normal, Mood normal. Pertinent Labs: Results for orders placed or performed during the hospital encounter of 05/30/24 TROPONIN, QUANT Result Value Ref Range TROPONIN I HIGH SENSITIVITY <3 <54 ng/L CBC W/DIFF AUTOMATED Result Value Ref Range WBC 7.35 4.5 - 13.0 x10'3/uL RBC 5.29 4.20 - 5.40 x10'6/uL HGB 15.2 12.0 - 16.0 G/DL HCT 44.2 38.0 - 48.0 % MCV 83.6 81.0 - 99.0 FL MCH 28.7 27.0 - 31.0 PG MCHC 34.4 32.0 - 36.0 G/DL RDW 12.2 11.5 - 14.5 % PLT 231 130 - 400 x10'3/uL MPV 10.9 9.3 - 12.2 FL DIFFERENTIAL TYPE AUTOMATED DIFFERENTIAL NEUTROPHILS % 52.0 % LYMPHOCYTES % 35.6 % MONOCYTES % 8.6 % EOSINOPHILS 3.0 % BASOPHILS 0.7 % IMMATURE GRANS % 0.1 % ABS. NEUTROPHILS 3.82 1.80 - 8.00 x10'3/uL ABS. LYMPHOCYTES 2.62 1.20 - 5.20 x10'3/uL ABS. MONOCYTES 0.63 0.24 - 0.86 x10'3/uL ABS. EOSINOPHILS 0.22 0.04 - 0.36 x10'3/uL ABS. BASOPHILS 0.05 0.01 - 0.08 x10'3/uL ABS. IMMATURE GRANULOCYTES 0.01 0.00 - 0.49 x10'3/uL COMPREHENSIVE METABOLIC PANEL Result Value Ref Range GLUCOSE 98 70 - 99 MG/DL BUN 10 7 - 18 MG/DL CREATININE S/P/B 0.76 0.55 - 1.02 MG/DL SODIUM S/P/B 139 136 - 145 MMOL/L POTASSIUM S/P/B 3.5 3.5 - 5.1 MMOL/L CHLORIDE S/P/B 107 97 - 115 MMOL/L CO2 26.4 21 - 32 MMOL/L CALCIUM S/P/B 9.3 8.5 - 10.1 MG/DL BILIRUBIN TOTAL S/P/B 0.3 0.2 - 1.1 MG/DL TOTAL PROTEIN S/P/B 8.0 6.4 - 8.2 G/DL ALBUMIN S/P/B 4.2 3.4 - 5.0 G/DL AST 13 (L) 15 - 37 U/L ALT 20 14 - 55 U/L ALKALINE PHOSPHATASE S/P/B 90 50 - 136 U/L ANION GAP 5.6 2 - 10 MMOL/L BUN CREATININE RATIO 13.1 6 - 26 A/G RATIO 1.1 1.0 - 2.0 RATIO GFR ESTIMATE >90 >90 ML/MIN/1.73 M2 D-DIMER, QUANTITATIVE Result Value Ref Range D-DIMER 843 (HH) 0 - 500 ng[FEU]/mL URINALYSIS Result Value Ref Range SPECIMEN TYPE URINE CLEAN CATCH COLOR (U) COLORLESS TRANSPARENCY TURBID SPECIFIC GRAVITY (U) 1.013 1.001 - 1.030 U PH 7.0 5.0 - 9.0 LEUKOCYTES (U) NEGATIVE NEGATIVE NITRITES NEGATIVE NEGATIVE PROTEIN RANDOM (U) NEGATIVE <30 MG/DL GLUCOSE (U) NORMAL NORMAL MG/DL KETONES MG/DL (U) NEGATIVE NEGATIVE MG/DL UROBILINOGEN NORMAL NORMAL MG/DL BILIRUBIN (U) NEGATIVE NEGATIVE MG/DL BLOOD (U) 3+ (A) NEGATIVE WBC/HPF 1 <6 /HPF RBC/HPF >100 (H) <6 /HPF BACTERIA (U) RARE (A) NONE /HPF BUDDING YEAST RARE (A) NONE /HPF SQUAMOUS EPITHELIALS RARE /HPF POCT urine Result Value Ref Range URINE HCG TEST NEGATIVE Internal Control: VALID RADIOLOGY CTA CHEST PE PROTOCOL Final Result by User, [id number] (05/30 2013) [facility] [address] [place], [place] [address] PROCEDURE: CTA CHEST PE PROTOCOL. HISTORY: Evaluate for pulmonary embolism. Chest pain. TECHNIQUE: Contrast enhanced helical CT pulmonary angiography was then performed (Isovue-370, 80 mL). Routine transaxial and post-processed (sagittal and coronal MPR) reformations of the acquired data sets were obtained. Standard 3-D (MIP) reformations of the acquired data sets were also obtained. A dose lowering technique was used for this procedure, which may include, but is not limited to, dose reduction technique, automated exposure control, the use of iterative reconstruction, and ALARA (As Low As Reasonably Achievable) / Image Gently techniques. COMPARISON: PA and lateral chest radiograph, 05/30/2024. PULMONARY CTA FINDINGS: This is a diagnostic quality helical CT pulmonary angiogram. There is no acute pulmonary embolism to the first subsegmental pulmonary artery level. OTHER FINDINGS: Support Devices: None. Heart/Pericardium/Great Vessels: Cardiac size is normal. Calcific coronary artery atherosclerosis cannot be accurately evaluated on this contrast-enhanced exam. There is no pericardial effusion. There is no thoracic aortic or branch vessel calcific atherosclerosis. The main pulmonary artery is normal in diameter. The mid ascending thoracic aorta measures up to 2.6 cm. Pleural Spaces: The pleural spaces are clear. Mediastinum/Shira: There is no mediastinal or hilar lymph node enlargement. Soft tissue density within the anterior mediastinum, compatible with residual thymic tissue. Neck Base/Chest Wall/Diaphragm/Upper Abdomen: There is no supraclavicular or axillary lymph node enlargement. Limited imaging through the upper abdomen is within normal limits. No aggressive osseous lesions are identified. Lungs/Central Airways: The trachea and central airways are clear and normal in caliber. No focal consolidation. IMPRESSION: 1. There is no acute pulmonary embolism to the first subsegmental pulmonary artery level. 2. No acute abnormality is seen within the chest. Ordered By: FRANCO SHIPLEY Interpreted By: Estee Mijares MD, 05/30/2024 8:08 PM XR CHEST PA+LAT Final Result by User, [id number] (05/30 1934) [address] [address] Examination: Chest radiographs Exam date/time: 05/30/2024 7:22 PM Reason For Exam: Chest pain Comparison: None available Technique: PA and lateral views of the chest. Findings: Heart size is normal. Pulmonary vascular pattern appears unremarkable. No focal pulmonary consolidation. No pleural effusion. No pneumothorax. Thoracic vertebral body heights are preserved. IMPRESSION: No radiographic evidence of an acute cardiopulmonary abnormality. Ordered By: FRANCO SHIPLEY Interpreted By: Teddy Rush MD, 05/30/2024 7:33 PM MEDS GIVEN IN ER: Medications iopamidol (ISOVUE-370) 76 % injection 80 mL (80 mLs Intravenous Given 05/30/241999) ED COURSE & MEDICAL DECISION MAKING Pertinent Labs & Imaging studies reviewed. (See chart for details) Patient presents to the emergency room today for chest pain. Doubt ACS/TX given no ST-T changes on EKG, no associated diaphoresis, no associated vomiting, and chest pain is not exertional in nature. D-dimer elevated. CTA neg. Doubt pneumothorax, doubt pneumonia given nml CXR. Patient is stable for discharge home. Patient to follow up with PMD in 2 days. Strict return to ED precautions given. ACI discussed with the patient; see instruction below. Patient verbalized understanding ? Disposition Discussion: I have discussed today's findings with the patient and family member father and provided information regarding the likely diagnosis. The patient has been given information regarding their treatment, follow up and concerning symptoms for which they should seek urgent or emergent attention. I have expressed the the importance of seeking attention should there be any new, or worsening symptoms or persistence of their condition. The patient is stable at discharge and has verbalized understanding ofthese instructions. DATE: 05/30/2024 10:33 PM PATIENT: Graciela Waltersoff Discharge Clinical Impressions: SNOMED CT(R) 1. Chest pain CHEST PAIN Discharge Condition: stable Discharge Disposition: Patient discharge to home with There are no discharge medications for this patient. I spent time answering the patient's questions. Discharge instructions using teach back, understanding assessed and validated. Please refer to the exit loan underwriter discharge instructions for details surrounding the discharge plan. I did reiterate with the patient that if an urgent need for immediate follow up comes up, not to hesitate to return to the ED. LOVE Treviño PA 05/30/242232 Cosigned by Amando Fisher MD,PHD at 05/31/2024 3:23 PM GENERAL MAINTENANCE TECHNICIAN RAL MAINTENANCE TECHNICIAN RAL MAINTENANCE TECHNICIAN * Abdi Alicia RN - 05/30/2024 6:57 PM CST Pt to ED for lower Lt sided stabbing chest pain with deep inhalation. Pt currently complains of feeling hot on Lt lower chest. Pt denies cardiac history, denies radiation of pain. Denies being sick recently or any sick contacts. RAL MAINTENANCE TECHNICIAN documented in this encounter Plan of Treatment Not on file documented as of this encounter Procedures Procedure Name Priority Date/Time Associated Diagnosis Comments CTA CHEST PE PROTOCOL STAT 05/30/2024 8:00 PM GENERAL MAINTENANCE TECHNICIAN XR CHEST PA+LAT STAT 05/30/2024 7:32 PM GENERAL MAINTENANCE TECHNICIAN HC URINALYSIS AUTO W/O MICRO STAT 05/30/2024 7:26 PM GENERAL MAINTENANCE TECHNICIAN POCT URINE (BACK OFFICE) STAT 05/30/2024 7:20 PM GENERAL MAINTENANCE TECHNICIAN COMPREHENSIVE METABOLIC PANEL STAT 05/30/2024 7:13 PM GENERAL MAINTENANCE TECHNICIAN D-DIMER, QUANTITATIVE STAT 05/30/2024 7:13 PM GENERAL MAINTENANCE TECHNICIAN CBC W/DIFF AUTOMATED STAT 05/30/2024 7:13 PM GENERAL MAINTENANCE TECHNICIAN TROPONIN, QUANT STAT 05/30/2024 7:13 PM GENERAL MAINTENANCE TECHNICIAN ECG 12-LEAD STAT 05/30/2024 7:08 PM GENERAL MAINTENANCE TECHNICIAN documented in this encounter Results * CTA CHEST PE PROTOCOL (05/30/2024 8:00 PM GENERAL MAINTENANCE TECHNICIAN) Anatomical Region Laterality Modality Chest Computed Tomogra phy 05/30/2024 8:08 PM GENERAL MAINTENANCE TECHNICIAN Impressions 05/30/2024 8:12 PM GENERAL MAINTENANCE TECHNICIAN IMPRESSION: 1. ??There is no acute pulmonary embolism to the first subsegmental pulmonary artery level. 2. ??No acute abnormality is seen within the chest. Ordered By: FRANCO SHIPLEY Interpreted By: Estee Mijares MD, 05/30/2024 8:08 PM Narrative 05/30/2024 8:12 PM GENERAL MAINTENANCE TECHNICIAN [address] [address] PROCEDURE: ??CTA CHEST PE PROTOCOL. HISTORY: ??Evaluate [...] Procedure Note Estee Mijares MD - 05/30/2024 [facility] [address] [place], [place] [address] PROCEDURE: CTA CHEST PE PROTOCOL. HISTORY: Evaluate [...] seen within the chest. Ordered By: FRANCO SHIPLEY Interpreted By: Estee Mijares MD, 05/30/2024 8:08 PM us Franco Shipley PA CT Final Resu lt * XR CHEST PA+LAT (05/30/2024 7:32 PM GENERAL MAINTENANCE TECHNICIAN) Anatomical Region Laterality Modality Chest Radiographic Candy ging 05/30/2024 7:33 PM GENERAL MAINTENANCE TECHNICIAN Impressions 05/30/2024 7:33 PM GENERAL MAINTENANCE TECHNICIAN IMPRESSION: No radiographic evidence of an acute cardiopulmonary abnormality. Ordered By: FRANCO SHIPLEY Interpreted By: Teddy Rush MD, 05/30/2024 7:33 PM Narrative 05/30/2024 7:33 PM GENERAL MAINTENANCE TECHNICIAN [place] [id number] Examination: Chest radiographs Exam date/time: 05/30/2024 7:22 PM Reason For Exam: ??Chest pain ?? Comparison: None available Technique: PA and lateral views of the chest. Findings: Heart size is normal. Pulmonary vascular pattern appears unremarkable. No focal pulmonary consolidation. No pleural effusion. No pneumothorax. Thoracic vertebral body heights are preserved. Procedure Note Teddy Rush MD - 05/30/2024 [place] [id number] Examination: Chest radiographs Exam date/time: 05/30/2024 7:22 PM Reason For Exam: Chest pain Comparison: None available Technique: PA and lateral views of the chest. Findings: Heart size is normal. Pulmonary vascular pattern appearsunremarkable. No focal pulmonary consolidation. No pleural effusion. Nopneumothorax. Thoracic vertebral body heights are preserved. IMPRESSION: No radiographic evidence of an acute cardiopulmonary abnormality. Ordered By: FRANCO SHIPLEY Interpreted By: Teddy Rush MD, 05/30/2024 7:33 PM Franco Shipley PA GENERAL IMAGING Final Resu lt * (ABNORMAL) URINALYSIS (05/30/2024 7:26 PM GENERAL MAINTENANCE TECHNICIAN) SPECIMEN TYPE URINE CLEAN CATCH 05/30/2024 7:27 PM GENERAL MAINTENANCE TECHNICIAN [facility] COLOR (U) COLORLESS 05/30/2024 7:47 PM GENERAL MAINTENANCE TECHNICIAN [facility] TRANSPARENCY TURBID 05/30/2024 7:47 PM GENERAL MAINTENANCE TECHNICIAN [facility] SPECIFIC GRAVITY (U) 1.013 1.001 - 1.030 05/30/2024 7:47 PM GENERAL MAINTENANCE TECHNICIAN [facility] U PH 7.0 5.0 - 9.0 05/30/2024 7:47 PM GENERAL MAINTENANCE TECHNICIAN [facility] LEUKOCYTES (U) NEGATIVE NEGATIVE 05/30/2024 7:47 PM GENERAL MAINTENANCE TECHNICIAN [facility] NITRITES NEGATIVE NEGATIVE 05/30/2024 7:47 PM [facility] PROTEIN RANDOM (U) NEGATIVE <30 MG/DL 05/30/2024 7:47 PM [facility] GLUCOSE (U) NORMAL NORMAL MG/DL 05/30/2024 7:47 PM [facility] KETONES MG/DL (U) NEGATIVE NEGATIVE MG/DL 05/30/2024 7:47 PM GENERAL MAINTENANCE TECHNICIAN [facility] UROBILINOGEN NORMAL NORMAL MG/DL 05/30/2024 7:47 PM [facility] BILIRUBIN (U) NEGATIVE NEGATIVE MG/DL 05/30/2024 7:47 PM [facility] BLOOD (U) 3+(A) NEGATIVE 05/30/2024 7:47 PM GENERAL MAINTENANCE TECHNICIAN [facility] WBC/HPF 1 <6 /HPF 05/30/2024 7:47 PM GENERAL MAINTENANCE TECHNICIAN [facility] RBC/HPF >100(H) <6 /HPF 05/30/2024 7:47 PM GENERAL MAINTENANCE TECHNICIAN [facility] BACTERIA (U) RARE(A) NONE /HPF 05/30/2024 7:47 PM GENERAL MAINTENANCE TECHNICIAN [facility] BUDDING YEAST RARE(A) NONE /HPF 05/30/2024 7:47 PM GENERAL MAINTENANCE TECHNICIAN [facility] SQUAMOUS EPITHELIALS RARE /HPF 05/30/2024 7:47 PM GENERAL MAINTENANCE TECHNICIAN [facility] URINE SPECIMEN OBTAINED BY CLEAN CATCH PROCEDURE / Unknown 05/30/2024 7:26 PM GENERAL MAINTENANCE TECHNICIAN Franco ALEMAN URINE ORDERABLES Final Res ult [facility] [address] [place] [address], [place] [phone] * POCT urine (05/30/2024 7:20 PM GENERAL MAINTENANCE TECHNICIAN) URINE HCG TEST NEGATIVE Internal Control: VALID Franco ALEMAN POINT OF CARE TEST ORDERAB LES Final Result * (ABNORMAL) D-DIMER, QUANTITATIVE (05/30/2024 7:13 PM GENERAL MAINTENANCE TECHNICIAN) D-DIMER 843(HH) 0 - 500 ng{FEU}/mL 05/30/2024 7:44 PM GENERAL MAINTENANCE TECHNICIAN [facility] Comment: D-Dimer values less than or [...] PM to EMERGENCY ROOM (Marianna/ELISA DEVINE) by [id number]. Read Back: Yes 05/30/2024 7:13 PM GENERAL MAINTENANCE TECHNICIAN us Franco ALEMAN [facility] Final Resu lt [facility] [address] [place] [address], [place] [phone] * (ABNORMAL) COMPREHENSIVE METABOLIC PANEL (05/30/2024 7:13 PM GENERAL MAINTENANCE TECHNICIAN) GLUCOSE 98 70 - 99 MG/DL 05/30/2024 7:40 PM GENERAL MAINTENANCE TECHNICIAN [facility] BUN 10 7 - 18 MG/DL 05/30/2024 7:40 PM GENERAL MAINTENANCE TECHNICIAN [facility] CREATININE S/P/B 0.76 0.55 - 1.02 MG/DL 05/30/2024 7:40 PM GENERAL MAINTENANCE TECHNICIAN [facility] SODIUM S/P/B 139 136 - 145 MMOL/L 05/30/2024 7:40 PM [facility] POTASSIUM S/P/B 3.5 3.5 - 5.1 MMOL/L 05/30/2024 7:40 PM GENERAL MAINTENANCE TECHNICIAN [facility] CHLORIDE S/P/B 107 97 - 115 MMOL/L 05/30/2024 7:40 PM GENERAL MAINTENANCE TECHNICIAN [facility] CO2 26.4 21 - 32 MMOL/L 05/30/2024 7:40 PM [facility] CALCIUM S/P/B 9.3 8.5 - 10.1 MG/DL 05/30/2024 7:40 PM [facility] BILIRUBIN TOTAL S/P/B 0.3 0.2 - 1.1 MG/DL 05/30/2024 7:40 PM [facility] Comment: THIS ASSAY IS NOT RECOMMENDED FOR PATIENTS UNDERGOING TREATMENT WITH ELTROMBOPAG DUE TO THE POTENTIAL FOR FALSELY ELEVATED RESULTS. TOTAL PROTEIN S/P/B 8.0 6.4 - 8.2 G/DL 05/30/2024 7:40 PM [facility] ALBUMIN S/P/B 4.2 3.4 - 5.0 G/DL 05/30/2024 7:40 PM GENERAL MAINTENANCE TECHNICIAN [facility] AST 13(L) 15 - 37 U/L 05/30/2024 7:40 PM [facility] ALT 20 14 - 55 U/L 05/30/2024 7:40 PM [facility] ALKALINE PHOSPHATASE S/P/B 90 50 - 136 U/L 05/30/2024 7:40 PM [facility] ANION GAP 5.6 2 - 10 MMOL/L 05/30/2024 7:40 PM [facility] BUN CREATININE RATIO 13.1 6 - 26 05/30/2024 7:40 PM [facility] A/G RATIO 1.1 1.0 - 2.0 RATIO 05/30/2024 7:40 PM [facility] GFR ESTIMATE >90 >90 ML/MIN/1.7 3 M2 05/30/2024 7:40 PM [facility] Comment: NOTE: eGFR is not calculated for patients <18 years of age or gender unknown. This is an estimated GFR calculation using the new CKD EPI creatinine equation without race and so does not require a correction factor for race. This estimated GFR should not be used for calculating drug doses. 05/30/2024 7:13 PM GENERAL MAINTENANCE TECHNICIAN us Franco [facility]MAN [facility] Final Resu lt [facility] [address] [place] [address], [place] [phone] * CBC W/DIFF AUTOMATED (05/30/2024 7:13 PM GENERAL MAINTENANCE TECHNICIAN) [facility] WBC 7.35 4.5 - 13.0 x10'3/uL 05/30/2024 7:25 PM GENERAL MAINTENANCE TECHNICIAN [facility] RBC 5.29 4.20 - 5.40 x10'6/uL 05/30/2024 7:25 PM GENERAL MAINTENANCE TECHNICIAN [facility] HGB 15.2 12.0 - 16.0 G/DL 05/30/2024 7:25 PM [facility] HCT 44.2 38.0 - 48.0 % 05/30/2024 7:25 PM GENERAL MAINTENANCE TECHNICIAN [facility] MCV 83.6 81.0 - 99.0 FL 05/30/2024 7:25 PM GENERAL MAINTENANCE TECHNICIAN [facility] MCH 28.7 27.0 - 31.0 PG 05/30/2024 7:25 PM GENERAL MAINTENANCE TECHNICIAN [facility] MCHC 34.4 32.0 - 36.0 G/DL 05/30/2024 7:25 PM [facility] RDW 12.2 11.5 - 14.5 % 05/30/2024 7:25 PM [facility] PLT 231 130 - 400 x10'3/uL 05/30/2024 7:25 PM GENERAL MAINTENANCE TECHNICIAN [facility] MPV 10.9 9.3 - 12.2 FL 05/30/2024 7:25 PM [facility] DIFFERENTIAL TYPE AUTOMATED DIFFERENTIAL 05/30/2024 7:25 PM [facility] NEUTROPHILS % 52.0 % 05/30/2024 7:25 PM [facility] LYMPHOCYTES % 35.6 % 05/30/2024 7:25 PM GENERAL MAINTENANCE TECHNICIAN [facility] MONOCYTES % 8.6 % 05/30/2024 7:25 PM GENERAL MAINTENANCE TECHNICIAN [facility] EOSINOPHILS 3.0 % 05/30/2024 7:25 PM GENERAL MAINTENANCE TECHNICIAN [facility] BASOPHILS 0.7 % 05/30/2024 7:25 PM GENERAL MAINTENANCE TECHNICIAN [facility] IMMATURE GRANS % 0.1 % 05/30/20 7:25 PM GENERAL MAINTENANCE TECHNICIAN [facility] ABS. NEUTROPHILS 3.82 1.80 - 8.00 x10'3/uL 05/30/2024 7:25 PM GENERAL MAINTENANCE TECHNICIAN [facility] ABS. LYMPHOCYTES 2.62 1.20 - 5.20 x10'3/uL 05/30/2024 7:25 PM GENERAL MAINTENANCE TECHNICIAN [facility] ABS. MONOCYTES 0.63 0.24 - 0.86 x10'3/uL 05/30/2024 7:25 PM GENERAL MAINTENANCE TECHNICIAN [facility] ABS. EOSINOPHILS 0.22 0.04 - 0.36 x10'3/uL 05/30/2024 7:25 PM GENERAL MAINTENANCE TECHNICIAN [facility] ABS. BASOPHILS 0.05 0.01 - 0.08 x10'3/uL 05/30/2024 7:25 PM GENERAL MAINTENANCE TECHNICIAN [facility]. IMMATURE GRANULOCYTES 0.01 0.00 - 0.49 x10'3/uL 05/30/2024 7:25 PM GENERAL MAINTENANCE TECHNICIAN [facility] 05/30/2024 7:13 PM GENERAL MAINTENANCE TECHNICIAN [facility] Final Resu lt [facility] [address] [place] [address], * TROPONIN, QUANT (05/30/2024 7:13 PM GENERAL MAINTENANCE TECHNICIAN) TROPONIN I HIGH SENSITIVITY <3 <54 ng/L 05/30/2024 7:40 PM GENERAL MAINTENANCE TECHNICIAN [facility] Comment: HIGH DOSES OF BIOTIN, TROPONIN-SPECIFIC AUTOANTIBODIES, AND ANTIBODY THERAPY CONTAINING HAMA MAY INTERFERE WITH THIS TEST RESULT. CORRELATION TO CLINICAL HISTORY AND PRESENTATION RECOMMENDED. 05/30/2024 7:13 PM GENERAL MAINTENANCE TECHNICIAN us [facility] Final Resu lt [facility] [address] [place] [address], * ECG 12 lead (05/30/2024 7:08 PM GENERAL MAINTENANCE TECHNICIAN) 05/30/2024 7:08 PM GENERAL MAINTENANCE TECHNICIAN Narrative [facility] RAD - 05/31/2024 7:35 PM GENERAL MAINTENANCE TECHNICIAN ?[facility] Jennifer ? [address] [facility] ? Test Date: ?2024-05-30 Pat Name: ? GRACIELA RESTOFF ? Department: ?? 41 ? Room: ? TG3 Gender: ? Female ? Boarding House Manager: ?? [id number] : ?2005 ? Requested By: FRANCO SHIPLEY Order Number: [id number] ? Reading : ?? Mary Frias ? Measurements Intervals ?[place] ? Rate: ? 98 ? P: ?74 VT: ? 113 ?QRS: ?80 QRSD: ? 79 ? T: ?27 QT: ? 318 ? QTc: ?406 ? 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 us Franco ALEMAN ECG ORDERABLES Final Resu lt [facility] RAD documented in this encounter Visit Diagnoses Diagnosis Chest pain- Primary Chest pain, unspecified documented in this encounter Administered Medications Inactive Administered Medications - up to 3 most recent administrations Medication Order MAR Action Action Date Dose Rate Site iopamidol (ISOVUE-370) 76 % injection 80 mL 80 mL, Intravenous, IMG once as needed, Contrast, 1 dose, Starting on Thu05/30/24 at 1999, Until Thu05/30/24 at 1999 Given 05/30/2024 8:00 PM GENERAL MAINTENANCE TECHNICIAN 80 mLs documented in this encounter Active and Recently Administered Medications Times are shown in GENERAL MAINTENANCE TECHNICIAN. PRN Medication Order 05/28/2024 05/29/2024 05/30/2024 iopamidol (ISOVUE-370) 76 % injection 80 mL (COMPLETED) 80 mL, Intravenous, IMG once as needed, Contrast, 1 dose, Starting on Thu05/30/24 at 1999, Until Thu05/30/24 at 1999 1999 (Given - Provid er: Krista Gutierres RTR) documented in this encounter Care Teams Biomedical Field Service Engineer Relationship Specialty Start Date End Date Tank Andujar MD PCP - General 01/13/15 documented as of this encounter
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
--- OUTSIDE RECORDS SUMMARY | 2024-07-05 20:27 | XMS_ITS | Encounter Summary ---
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 increase the pain will improve Outcome: Progressing Goal: Pain level will decrease Outcome: Progressing Problem: Health Behavior: Goal: Understanding of discharge needs will improve Outcome: Progressing Problem: Activity: Goal: Risk for activity intolerance will decrease Outcome: Progressing Goal: Ability to follow a routine sleep schedule will improve Outcome: Progressing Problem: Bowel/Gastric: Goal: Ability to maintain baseline age appropriate bowel function will improve Outcome: Progressing Problem: Lack of Knowledge: Goal: Knowledge of disease or condition will improve Outcome: Progressing Problem: Coping: Goal: Demonstrations of calm behavior will increase Outcome: Progressing Goal: Expression of the ability to provide proper assistance and support to the patient will improve Outcome: Progressing Problem: Fluid Volume: Goal: Ability to maintain a balanced intake and output will improve Outcome: Progressing Problem: Health Behavior: Goal: Identification of resources available to assist in meeting health care needs will improve Outcome: Progressing Problem: Nutritional: Goal: Ability to attain and maintain optimal nutritional status will improve Outcome: Progressing Problem: Physical Regulation: Goal: Complications related to the disease process, condition or treatment will be avoided or minimized Outcome: Progressing Problem: Respiratory: Goal: Respiratory status will improve Outcome: Progressing Goal: Ability to maintain a clear airway will improve Outcome: Progressing Problem: Safety: Goal: Ability to remain free from injury will improve Outcome: Progressing Problem: Self-Care: Goal: Ability to participate in self-care as condition permits will improve Outcome: Progressing Problem: Sensory: Goal: Pain level will decrease Outcome: Progressing Problem: Skin Integrity: Goal: Risk for impaired skin integrity will decrease Outcome: Progressing Goals: Clinical Goals for the Shift: VSS, monitor I&O, rest, NPO, HOB >30, adequate pain control TRONIC GAME DEVELOPER * Op Note - Brenda Thacker MD - 08/25/2022 11:50 AM CST PEDIATRIC OTOLARYNGOLOGY OPERATIVE NOTE NAME: Rachel Garza DATE OF : 2005 DATE OF SURGERY: 08/25/2022 SURGEON: Brenda Thacker MD SURGICAL TEAM: Surgeon(s) and Role: * Brenda Thacker MD - Primary PREOPERATIVE DIAGNOSIS: Pre-op Diagnosis * Hemorrhage following tonsillectomy [J95.830] POSTOPERATIVE DIAGNOSIS: Post-op Diagnosis * Hemorrhage following tonsillectomy [J95.830] PROCEDURE: CAUTERIZATION OF TONSIL BLEED (B) ANESTHESIA: Anesthesiologist: Gilles Dickey MD Anesthesia type: General Anesthesia ASA: I INDICATION FOR PROCEDURE: Rachel Garza is a 16 y.o. female who presents with postoperative hemoptysis after tonsillectomyon 08/19 for tonsil hyptertrophy and tonsilliths. FINDINGS: Organized clot in the right superior tonsillar fossa, active bleeding with removal of clot. Smallermid pole clot on the left without active bleeding. OPERATIVE REPORT: After informed consent was obtained Rachel was brought to the operating room, laid supine on the operating table. Anesthesia was induced. A complete time out was performed before commencement of the surgical procedure. Rachel was placed into suspension with the Danni-Gagandeep mouth gag. The clot in the right superior pole was suctioned with some fresh bleeding. Suction cautery and bipolar cautery were used to control bleeding until appeared controlled. The clot in the left mid pole was suctioned and the bed was erythematous but not bleeding, suction cautery was applied. Valsalva was performed by the anesthesiology team without additional bleeding. Nasopharynx was inspected, no evidence of bleeding. The pharynx was irrigated and then the stomach contents were suctioned. The patient was turned back to anesthesia for emergence. Condition on Discharge from the operating room was stable. No Resident involved on case. IMPLANTS: Nothing was implanted during the procedure ESTIMATED BLOOD LOSS: No blood loss documented. SPECIMENS: No specimens collected during this procedure. COMPLICATIONS: None. Brenda Thacker MD Date: 08/25/2022 Time: 1:13 PM TRONIC GAME DEVELOPER * Plan of Care - Marleen Low RN - 08/25/2022 5:15 AM CST Goals: Clinical Goals for the Shift: VSS, monitor I&O, rest, NPO, HOB >30, adequate pain control Summary: All clinical goals for shift met. Problem: Lack of Knowledge: Goal: Ability to develop a pain control plan will improve Outcome: Progressing Goal: Ability to identify pain intensity on a pain scale and rate it consistently will improve Outcome: Progressing Goal: Ability to notify healthcare provider of pain before it becomes unmanageable or unbearable will improve Outcome: Progressing Problem: Medication: Goal: Satisfaction with pain management regimen will improve Outcome: Progressing Problem: Sensory: Goal: Ability to identify factors that increase the pain will improve Outcome: Progressing Goal: Pain level will decrease Outcome: Progressing TRONIC GAME DEVELOPER documented in this encounter Plan of Treatment Not on file documented as of this encounter Procedures Procedure Name Priority Date/Time Associated Diagnosis Comments CAUTERIZATION OF TONSIL BLEED 08/25/2022 12:46 PM ELECTRONIC GAME DEVELOPER Hemorrhage following tonsillectomy HCG, URINE, QUALITATIVE STAT 08/25/2022 12:20 PM ELECTRONIC GAME DEVELOPER DIFFERENTIAL AUTO STAT 08/25/2022 2:4 6 AM ELECTRONIC GAME DEVELOPER CBC WITH AUTO DIFFERENTIAL STAT 08/25/2022 2:46 AM ELECTRONIC GAME DEVELOPER documented in this encounter Results * hCG, urine, qualitative (08/25/2022 12:20 PM ELECTRONIC GAME DEVELOPER) HCG, ur Negative Negative [facility] Urine 08/25/2022 12:2 0 PM ELECTRONIC GAME DEVELOPER 08/25/2022 12:23 PM ELECTRONIC GAME DEVELOPER Anni Gregory NP LAB URINE ORDERABLES Final Result Performing Organization Address City/State/[facility] Co de Phone Number [facility] Department of [place] [address] * (ABNORMAL) Differential, auto (08/25/2022 2:46 AM ELECTRONIC GAME DEVELOPER) Neutrophil abs 4.5 1.7 - 6.5 K/cumm [facility] Imm gran abs 0.0 0.0 - 0.1 K/cumm [facility] Lymphocyte abs 2.1 0.8 - 3.3 K/cumm [facility] Monocyte abs 0.9(H) 0.2 - 0.8 K/cumm [facility] Eosinophil abs 0.2 0.0 - 0.5 K/cumm [facility] Basophil abs 0.0 0.0 - 0.1 K/cumm [facility] Neutrophil pct 58.4 % [facility] Comment: Interpretive Data Percent cell count reference ranges are not reported, since discordance with absolute values may lead to misinterpretation of CBC data. Current Interpretive Data was last revised on 2017. Imm gran pct 0.3 % [facility] Comment: Interpretive Data Percent cell count reference ranges are not reported, since discordance with absolute values may lead to misinterpretation of CBC data. Current Interpretive Data was last revised on 2017. Lymphocyte pct 26.6 % [facility] Comment: Interpretive Data Percent cell count reference ranges are not reported, since discordance with absolute values may lead to misinterpretation of CBC data. Current Interpretive Data was last revised on 2017. Monocyte pct 11.3 % [facility] Comment: Interpretive Data Percent cell count reference ranges are not reported, since discordance with absolute values may lead to misinterpretation of CBC data. Current Interpretive Data was last revised on 2017. Eosinophil pct 3.0 % [facility] Comment: Interpretive Data Percent cell count reference ranges are not reported, since discordance with absolute values may lead to misinterpretation of CBC data. Current Interpretive Data was last revised on 2017. Basophil pct 0.4 % [facility] Comment: Interpretive Data Percent cell count reference ranges are not reported, since discordance with absolute values may lead to misinterpretation of CBC data. Current Interpretive Data was last revised on 2017. Blood 08/25/2022 2:46 AM ELECTRONIC GAME DEVELOPER 08/25/2022 2:50 AM ELECTRONIC GAME DEVELOPER us Elissa Torres MD LAB BLOOD ORDERABLES F inal Result [facility] Department of [place] [address] * CBC with auto differential (08/25/2022 2:46 AM ELECTRONIC GAME DEVELOPER) WBC 7.7 3.8 - 9.9 K/cumm [facility] Hgb 13.0 11.9 - 15.5 g/dL [facility] Hct 37.1 35.6 - 45.5 % [facility] Plt 202 150 - 400 K/cumm [facility] MPV 10.2 9.1 - 12.3 fL [facility] RBC 4.43 3.90 - 5.20 M/cumm [facility] MCV 83.7 81.3 - 96.4 fL [facility] MCH 29.3 27.1 - 33.3 pg [facility] MCHC 35.0 32.3 - 35.7 g/dL [facility] RDW CV 12.1 11.1 - 14.9 % [facility] RDW SD 37.4 35.7 - 48.1 fL [facility] NRBC abs 0.00 0.00 - 0.01 K/cumm [facility] Blood 08/25/2022 2:46 AM ELECTRONIC GAME DEVELOPER 08/25/2022 2:50 AM ELECTRONIC GAME DEVELOPER us Elissa Torres MD LAB BLOOD ORDERABLES F inal Result [facility] Department of [place] [address] documented in this encounter Visit Diagnoses Diagnosis Post-tonsillectomy hemorrhage- Primary Hemorrhage following tonsillectomy Hemorrhage following tonsillectomy documented in this encounter Admitting Diagnoses Diagnosis Post-tonsillectomy hemorrhage documented in this encounter Administered Medications Inactive Administered Medications - up to 3 most recent administrations Medication Order MAR Action Action Date Dose Rate Site acetaminophen (TYLENOL) 32 mg/mL oral liquid 650 mg 650 mg (13.8 mg/kg), oral, Every 6 hours scheduled, First dose on Thu08/25/22 at 0415 Given 08/26/2022 6:29 AM ELECTRONIC GAME DEVELOPER 650 mg Given 08/26/2022 12:25 AM ELECTRONIC GAME DEVELOPER 650 mg Given 08/25/2022 5:41 PM ELECTRONIC GAME DEVELOPER 650 mg dextrose 5% and Lactated Ringer's infusion 85 mL/hr, intravenous, Continuous, Starting on Thu08/25/22 at 0400, This fluid contains potassium and calcium. Do not infuse with phosphorus containing solutions New Bag 08/25/2022 3:48 AM ELECTRONIC GAME DEVELOPER 85 mL/hr 85 mL/hr dextrose 5% and sodium chloride 0.9% infusion (premix) 87 mL/hr, intravenous, Continuous, Starting on Thu08/25/22 at 0204 New Bag 08/25/2022 2:52 AM ELECTRONIC GAME DEVELOPER 87 mL/hr 87 mL/hr HYDROmorphone (PF) (DILAUDID) injection 0.188 mg 0.188 mg (0.46544 mg/kg, rounded from 0.1888 mg = 0.004 mg/kg ? 47.2 kg Dosing weight), intravenous, Administer over 5 Minutes, Every 5 min PRN, other, may administer up to 2 doses for acute pain management, Starting on Thu08/25/22 at 1327, For 2 doses, Phase I, Maximum dose = 0.4 mg, Indications: PainIndications:Pain Given 08/25/2022 1:39 PM ELECTRONIC GAME DEVELOPER 0.188 mg lidocaine 1% buffered injection 0.1 mL 0.1 mL (0.14012 mL/kg), subcutaneous, Once, On Thu08/25/22 at 0204, For 1 dose, Maximum daily dose 0.1 mL/kg, Administer immediately prior to procedure. Given 08/25/2022 2:47 AM ELECTRONIC GAME DEVELOPER 0.1 mL Other (Comment) oxyCODONE (ROXICODONE) 1 mg/mL oral solution 4.7 mg 4.7 mg (0.0996 mg/kg, rounded from 4.72 mg = 0.1 mg/kg ? 47.2 kg Dosing weight), oral, Once as needed, other, may be given 10 minutes after non-opioid pain medication for on-going pain, Starting on Thu08/25/22 at 1331, For 6 hours, Phase I, Maximum dose = 10 mg; may repeat in 2-4 hours as needed for continued ongoing pain., Indications: PainIndications:Pain Given 08/25/2022 2:10 PM ELECTRONIC GAME DEVELOPER 4.7 mg oxymetazoline (AFRIN) 0.05 % nasal spray As needed, Starting on Thu08/25/22 at 1307, Intra-Op Given 08/25/2022 1:07 PM ELECTRONIC GAME DEVELOPER 1 application (deactivated) Surgical Site documented in this encounter Active and Recently Administered Medications Times are shown in ELECTRONIC GAME DEVELOPER. Scheduled Medication Order 08/24/2022 08/25/2022 08/26/2022 acetaminophen (TYLENOL) 32 mg/mL oral liquid 650 mg 650 mg (13.8 mg/kg), oral, Every 6 hours scheduled, First dose on Thu08/25/22 at 0415 0419 (Given - Provider: Marleen Low RN)1030 (Given - Provider: Bo Bagley RN)1243 (SEP Hold - Provider: Automatic Transfer Provider - Reason: Patient not available)1441 (SEP Unhold - Provider: Automatic Transfer Provider)1741 (Given - Provider: Viki Stokes, ROE) 0025 (Given - Provider: Sabine Arredondo, ROE)0629 (Given - Provider: Sabine Arredondo, ROE) lidocaine 1% buffered injection 0.1 mL (COMPLETED) 0.1 mL (0.11121 mL/kg), subcutaneous, Once, On Thu08/25/22 at 0204, For 1 dose, Maximum daily dose 0.1 mL/kg, Administer immediately prior to procedure. 0247 (Given - Provider: Brandie Lauren, ROE - Comment: R AC) Continuous Medication Order 08/24/2022 08/25/2022 08/26/2022 dextrose 5% and Lactated Ringer's infusion (CANCELED) 85 mL/hr, intravenous, Continuous, Starting on Thu08/25/22 at 0400, This fluid contains potassium and calcium. Do not infuse with phosphorus containing solutions 0348 (New Bag - Provider: Marleen Low RN)1600 (Stopped - Provider: Viki Stokes RN) dextrose 5% and sodium chloride 0.9% infusion (premix) (CANCELED) 87 mL/hr, intravenous, Continuous, Starting on Thu08/25/22 at 0204 0252 (New Bag - Provider: Brandie Lauren RN)0349 (Stopped - Provider: Marleen Low RN)0409 (Not Given - Provider: Marleen Low RN - Reason: Other - Comment: see mar) PRN Medication Order 08/24/2022 08/25/2022 08/26/2022 HYDROmorphone (PF) (DILAUDID) injection 0.188 mg (CANCELED) 0.188 mg (0.63548 mg/kg, rounded from 0.1888 mg = 0.004 mg/kg ? 47.2 kg Dosing weight), intravenous, Administer over 5 Minutes, Every 5 min PRN, other, may administer up to 2 doses for acute pain management, Starting on Thu08/25/22 at 1327, For 2 doses, Phase I, Maximum dose = 0.4 mg, Indications: Pain 1339 (Given - Provider: Kristal Goodman, ROE) ondansetron (ZOFRAN) injection 4 mg 4 mg (0.0851 mg/kg), intravenous, Administer over 15 Minutes, Every 6 hours PRN, nausea, vomiting, Starting on Thu08/25/22 at 0328, Maximum dose = 4 mg 1243 (MAR Hold - Provider: Automatic Transfer Provider - Reason: Patient not available)1441 (MAR Unhold - Provider: Automatic Transfer Provider) oxyCODONE (ROXICODONE) 1 mg/mL oral solution 4.7 mg (CANCELED) 4.7 mg (0.0996 mg/kg, rounded from 4.72 mg = 0.1 mg/kg ? 47.2 kg Dosing weight), oral, Once as needed, other, may be given 10 minutes after non-opioid pain medication for on-going pain, Starting on Thu08/25/22 at 1331, For 6 hours, Phase I, Maximum dose = 10 mg; may repeat in 2-4 hours as needed for continued ongoing pain., Indications: Pain 1410 (Given - Provider: Kristal Goodman RN) oxymetazoline (AFRIN) 0.05 % nasal spray (CANCELED) As needed, Starting on Thu08/25/22 at 1307, Intra-Op 1307 (Given - Provider: Brenda Thacker MD - Comment: used throughout case on tonsil balls) documented in this encounter Orders Medications Ordered That Lionel ht Not Have Been Administered Count Last Ordered Date First Ordered Date acetaminophen (TYLENOL) tablet 650 mg 1 Lactated Ringer's (LR) infusion 1 ondansetron (ZOFRAN) injection 4 mg 1 08/25 oxyCODONE (ROXICODONE) 1 mg/ mL oral solution 2.35 mg 1 08/25/2022 oxyCODONE (ROXICODONE) tablet 5 mg 1 2022 Diet Count Last Ordered Date First Orde red Date PEDIATRIC DISCHARGE DIET 1 08/26/2022 Nursing Count Last Ordered Date First Orde red Date DISCHARGE ACTIVITY 1 08/26/2022 DISCHARGE CALL PROVIDER 1 08/26/2022 DISCHARGE FOLLOW UP 1 08/26/2022 DISCHARGE INSTRUCTIONS 1 08/26/2022 IV Count Last Ordered Date First Orde red Date INSERT PERIPHERAL IV 1 08/25/2022 Admission Count Last Ordered Date First Orde red Date INITIATE OBSERVATION SERVICES 1 08/25/2022 Transfer Count Last Ordered Date First Orde red Date ED TO FLOOR BED REQUEST 1 08/25/2022 Discharge Count Last Ordered Date First Orde red Date DISCHARGE PATIENT 1 08/26/2022 Case Request Count Last Ordered Date First Orde red Date CASE REQUEST OPERATING ROOM 1 08/25/2022 documented in this encounter Care Teams Guest Advisor Relationship Specialty Start Date End Date Ifeoma Calderon NP [address] [place] [address] PCP - General Nurse Practitioner 04/16/22 No, Physician 02/13/22 documented as of this encounter
--- OUTSIDE RECORDS SUMMARY | 2024-07-05 20:27 | XMS_ITS | Encounter Summary ---
Author Organization [facility] Address [address] [place] [address] Care Team Providers Care Pharmacy General Manager Name Role Phone Unavailable Primary Care Provider Unavailabl e Encounter Details Date Type Department Care Team (Late st Contact Info) Description 03/27/2021 Lab Requisition [facility] [address] [place], [place] [id number] Elier Leahy MD [address] [place] [address] [place] [address] Social History Tobacco Use Types Packs/Day Years Used Date Smoking Tobacco: Never Assessed Comments Unknown Sex and Gender Information Value Date Recorded Sex Assigned at Not on file Legal Sex Female 8:56 AM CDT Gender Identity Not on file Sexual Orientation Not on file documented as of this encounter Plan of Treatment Not on file documented as of this encounter Procedures Procedure Name Priority Date/Time Associated Diagnosis Comments SARS-COV-2 PCR [facility] ONLY Routine 03/27/2021 9:01 AM CDT documented in this encounter Visit Diagnoses Not on filedocumented in this encounter
--- OUTSIDE RECORDS SUMMARY | 2024-07-05 20:27 | XMS_ITS | Clinical Summary ---
Author Organization [facility] Address [address] [place] [address] Care Team Providers Care Instructional Systems Design Consultant Name Role Phone Unavailable Primary Care Provider Unavailabl e Social History Tobacco Use Types Packs/Day Years Used Date Smoking Tobacco: Never Assessed Comments Unknown Sex and Gender Information Value Date Recorded Sex Assigned at Not on file Legal Sex Female 8:56 AM CDT Gender Identity Not on file Sexual Orientation Not on file Plan of Treatment Health Maintenance Due Date Last Done Comments Hepatitis C Virus (HCV) Screening 2005 Human Papillomavirus (HPV) Immunization (2 - 2-dose series) 09/28/2019 03/30/2019 SARS-COV-2 Immunization ( season) 2023 Influenza Immunization (Season Ended) 2024 Hepatitis B Immunization Completed 005, 01/21/2005, 2004, Additional history exists Pneumococcal Immunization Combined Aged Out 02/07/2006, 05/12/2005 No longer eligibl e based on patient's age to complete this topic Measles Mumps Rubella (MMR) Immunization Discontinued 03/12/2010, 02/07/2006 Polio (IPV) Immunization Discontinued 010, 05/12/2005, 01/21/2005, Additional history exists DTaP/Tdap/Td Immunization Discontinued 2015, 03/12/2010, 02/07/2006, Additional history exists Meningococcal Immunization (ACWY) Aged Out 03/19/2016 No longer eligible based on patient's age to complete this topic TdaP Immunization Completed 03/19/2016 Varicella Immunization Discontinued 03/19/2016, 2005 Hepatitis A Immunization Discontinued 02/11/2017, 03/06 Rotavirus Immunization Aged Out No lo nger eligible based on patient's age to complete this topic
--- OUTSIDE RECORDS SUMMARY | 2024-07-05 20:27 | XMS_ITS | Encounter Summary ---
Author Organization [facility] Healthcare Address [address] [place] [address] Care Team Providers Care Chemical Process Project Engineer Name Role Phone No, Physician Unavailable Ifeoma Calderon NP Primary Care Provider [phone] Encounter Details Date Type Department Care Team (Late st Contact Info) Description 08/24/2022 Telephone [facility] Surgeon [address] [place], [place] [id number] Tank Moss MD [facility] [address] [address] Social History Tobacco Use Types Packs/Day Years Used Date Smoking Tobacco: Former Smokeless Tobacco: Never AUDIT-C Answer Date Recorded Q1: How often [...] on file Legal Sex Female 6:58 AM ACCOUNT INSTALLATION SPECIALIST Gender Identity Not on file Sexual Orientation Not on file documented as of this encounter Miscellaneous Notes * Telephone Encounter - Tank Moss MD - 08/24/2022 9:45 PM CST ENT TELEPHONE NOTE Received page to call Rachel Garza, patient of Dr. Thakkar who underwent tonsillectomy on 08/19. She says overall she is been doing well since her procedure. She says the day after she did have a little bit of bleeding for which she was evaluated at an outside hospital. She says that she was discharged home with no further intervention. She notes that today she has had some bright red blood fromher mouth. She says this is quite small in volume. She is not coughing or choking on blood but she says it is persistent. Given this, recommended that she present for further evaluation. Patient and patient's mother expressed understanding and were in agreement with this plan. Tank Moss MD UNT INSTALLATION SPECIALIST documented in this encounter Plan of Treatment Not on file documented as of this encounter Visit Diagnoses Not on filedocumented in this encounter Care Teams Chemical Process Project Engineer Relationship Specialty Start Date End Date Ifeoma Calderon NP [address] [place] [address] PCP - General Nurse Practitioner 04/16/22 No, Physician 02/13/22 documented as of this encounter
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
--- OUTSIDE RECORDS SUMMARY | 2024-07-05 20:27 | XMS_ITS | Encounter Summary ---
Author Organization [facility] Address [address] [place] [address] Care Team Providers Care Gunstock Repairer Name Role Phone Unavailable Primary Care Provider Unavailabl e Encounter Details Date Type Department Care Team (Late st Contact Info) Description 03/27/2021 9:15 AM CDT Rapid Evaluation [facility] Community Testing [facility] [address], [place] [id number] Social History Tobacco Use Types Packs/Day Years [...]
--- OUTSIDE RECORDS SUMMARY | 2024-07-05 20:27 | XMS_ITS | Encounter Summary ---
Author Organization [facility] Healthcare Address [address] [place] [address] Care Team Providers Care Pari Mutual Ticket Checker Name Role Phone No, Physician Unavailable Ifeoma Calderon NP Primary Care Provider [phone] Reason for Visit * Reason Comments Post-op Problem * Auth/Cert (Routine) Specialty Diagnoses / Procedures Referred By Contac t Referred To Contact Diagnoses Hemorrhage following tonsillectomy Post-tonsillectomy hemorrhage Procedures N/A Referral ID Status Reason Start Date Expiration Date Visits Re quested Visits Authorized [id number] 1 1 Encounter Details Date Type Department Care Team (Late st Contact Info) Description 08/25/2022 12:51 AM GLAZE MAKER - 08/26/2022 9:20 AM GLAZE MAKER Emergency [facility] [address] [place] [address] Kayla Kelley MD 1 [facility] [address] [place] [address] Brenda Thacker MD [address] [place] [address] Hemorrhage following tonsillectomy (Primary Dx) Discharge Disposition: Discharge to home [...] on file Legal Sex Female 6:58 AM GLAZE MAKER Gender Identity Not on file Sexual Orientation Not on file documented as of this encounter Last Filed Vital Signs Vital Sign Reading Time Taken Comments Blood Pressure 95/61 08/26/2022 4:05 AM GLAZE MAKER Pulse 55 08/26/2022 4:05 AM GLAZE MAKER Temperature 36.5 ??C (97.7 ??F) 08/26/2022 4:05 AM CS T Respiratory Rate 14 08/26/2022 4:05 AM GLAZE MAKER Oxygen Saturation 96% 08/26/2022 5:50 AM GLAZE MAKER Inhaled Oxygen Concentration - - Weight 47.2 kg (104 lb 0.9 oz) 08/25/2022 3:30 A M GLAZE MAKER Height 157 cm (5' 1.81 ) 08/25/2022 3:30 AM GLAZE MAKER Body Mass Index 19.15 08/25/2022 3:30 AM GLAZE MAKER Body Mass Index Percentile 21.23% 08/25/2022 3:3 0 AM GLAZE MAKER Growth Chart: [facility] (Girls, 2- 20 Years) documented in this encounter Discharge Instructions * Discharge Instructions* Anni Gregory, TYREL - 08/25/2022 3:27 PM GLAZE MAKER Caring for Your Child After T&A What [...] information for your surgeon: After hours concerns: [phone] (Ask for ENT civil litigation attorney) During office hours: [phone] E MAKER documented in this encounter Medications at Time [...] - 08/26/2022 7:04 AM CST SUBJECTIVE: Rachel Garza is a 16 y.o. who presents on [...] on importance of hydration and return precautions. E MAKER * Anni Gregory NP - 08/25/2022 3:23 [...] call ENT with any questions or concerns E MAKER documented in this encounter Consult Notes * [...] Allergies Allergen Reactions Latex Other (See comments) [place] skin on contact Social History Tobacco Use [...] Brenda Thacker MD at 08/25/2022 9:43 AM GLAZE MAKER E MAKER E MAKER Associated attestation - Brenda Thacker MD - 08/25/2022 9:43 AM GLAZE MAKER I have seen and examined the patient [...] OR control of hemorrhage. Juani Thacker MD Clinical Aide Pediatric Otolaryngology documented in this encounter ED Notes * Sharda Sargent RN - 08/25/2022 12:51 AM CST Bed: ED1-24 Expected date: 08/25/22 Expected time: 12:43 AM Means of arrival: Car Comments: Sharda Sargent RN 08/25/22 0051 E MAKER * Elissa Torres MD - 08/25/2022 12:50 AM CST HPI Chief Complaint Patient presents with Post-op Problem HPI Rachel S Restoff is a 16 y.o. female previously healthy who presents with concern for bleeding following tonsillectomy on 08/19/22. Reports bleeding on the first day after post op, was evaluated at OSH, discharged home at that time. Has had intermittent bleeding since then. Today, noticed some bleeding starting [phone], feels like its still bleeding. Has been [...] and Affect: Mood normal. Behavior: Behavior normal. [facility] Medical Decision Making Rachel S Restoff is [...] Decision regarding hospitalization. ED Course as of 08/25/22 0204 Time: 08/25 103 Comment: 16 year old F s/p tonsillectomy 08/19/22 here with concern for bleeding. By: Kayla Kelley MD Time: 08/25 116 Comment: ENT to evaluate patient By: Elsisa Torres MD Time: 08/25 202 Comment: ENT saw patient. Plan for admission on their service for observation. Would like CBC and IVF as well. By: Elissa Torres MD Final diagnoses: Hemorrhage following tonsillectomy Elissa Torres MD Resident 08/25/22203 Cosigned by Kayla Kelley MD at 08/25/2022 5:57 AM GLAZE MAKER E MAKER E MAKER Associated attestation - Kayla Kelley MD - 08/25/2022 5:57 AM GLAZE MAKER I have seen and examined the patient [...] Cannot visualize any active bleeding in triage E MAKER documented in this encounter Miscellaneous Notes * [...] to home care on 08/26/22 at 0813. E MAKER * Plan of Care - Sabine Arredondo [...] Goal: Pain level will decrease Outcome: Progressing E MAKER * Plan of Care - Viki Stokes RN - 08/25/2022 6:40 PM GLAZE MAKER Problem: Lack of Knowledge: Goal: Ability to [...] rest, NPO, HOB >30, adequate pain control E MAKER * Op Note - Brenda Thacker MD [...] performed before commencement of the surgical procedure. Racehl was placed into suspension with the Danni-Gagandeep [...] Thacker MD Date: 08/25/2022 Time: 1:13 PM E MAKER * Plan of Care - Marleen Low [...] Goal: Pain level will decrease Outcome: Progressing E MAKER documented in this encounter Plan of Treatment Not on file documented as of this encounter Procedures Procedure Name Priority Date/Time Associated Diagnosis Comments CAUTERIZATION OF TONSIL BLEED 08/25/2022 12:46 PM GLAZE MAKER Hemorrhage following tonsillectomy HCG, URINE, QUALITATIVE STAT 08/25/2022 12:20 PM GLAZE MAKER DIFFERENTIAL AUTO STAT 08/25/2022 2:4 6 AM GLAZE MAKER CBC WITH AUTO DIFFERENTIAL STAT 08/25/2022 2:46 AM GLAZE MAKER documented in this encounter Results * hCG, urine, qualitative (08/25/2022 12:20 PM GLAZE MAKER) HCG, ur Negative Negative [facility] Urine 08/25/2022 12:2 0 PM GLAZE MAKER 08/25/2022 12:23 PM GLAZE MAKER us Anni Gregory NP LAB URINE ORDERABLES Final Result [facility] [address] [facility] [place] [address] * (ABNORMAL) Differential, auto (08/25/2022 2:46 AM GLAZE MAKER) Neutrophil abs 4.5 1.7 - 6.5 K/cumm [facility] Imm gran abs 0.0 0.0 - 0.1 K/cumm [facility] Lymphocyte abs 2.1 0.8 - 3.3 K/cumm [facility] Monocyte abs 0.9(H) 0.2 - 0.8 K/cumm [facility] Eosinophil abs 0.2 0.0 - 0.5 K/cumm [facility] Basophil abs 0.0 0.0 - 0.1 K/cumm [facility] Neutrophil pct 58.4 % [facility] Comment: Interpretive Data Percent cell count reference ranges are not reported, since discordance with absolute values may lead to misinterpretation of CBC data. Current Interpretive Data was last revised on 2017. Imm gran pct 0.3 % [facility] Comment: Interpretive Data Percent cell count reference ranges are not reported, since discordance with absolute values may lead to misinterpretation of CBC data. Current Interpretive Data was last revised on 2017. Lymphocyte pct 26.6 % [facility] Comment: Interpretive Data Percent cell count reference ranges are not reported, since discordance with absolute values may lead to misinterpretation of CBC data. Current Interpretive Data was last revised on 2017. Monocyte pct 11.3 % [facility] Comment: Interpretive Data Percent cell count reference ranges are not reported, since discordance with absolute values may lead to misinterpretation of CBC data. Current Interpretive Data was last revised on 2017. Eosinophil pct 3.0 % [facility] Comment: Interpretive Data Percent cell count reference ranges are not reported, since discordance with absolute values may lead to misinterpretation of CBC data. Current Interpretive Data was last revised on 2017. Basophil pct 0.4 % [facility] Comment: Interpretive Data Percent cell count reference ranges are not reported, since discordance with absolute values may lead to misinterpretation of CBC data. Current Interpretive Data was last revised on 2017. Blood 08/25/2022 2:46 AM GLAZE MAKER 08/25/2022 2:50 AM GLAZE MAKER Elissa Torres MD LAB BLOOD ORDERABLES F inal Result Performing Organization Address City/[facility]/ZIP Co de Phone Number [facility] [employer] [place] [address] * CBC with auto differential (08/25/2022 2:46 AM GLAZE MAKER) WBC 7.7 3.8 - 9.9 K/cumm [facility] Hgb 13.0 11.9 - 15.5 g/dL [facility] Hct 37.1 35.6 - 45.5 % [facility] Plt 202 150 - 400 K/cumm [facility] MPV 10.2 9.1 - 12.3 fL [facility] RBC 4.43 3.90 - 5.20 M/cumm [facility] MCV 83.7 81.3 - 96.4 fL [facility] MCH 29.3 27.1 - 33.3 pg [facility] MCHC 35.0 32.3 - 35.7 g/dL [facility] RDW CV 12.1 11.1 - 14.9 % [facility] RDW SD 37.4 35.7 - 48.1 fL [facility] NRBC abs 0.00 0.00 - 0.01 K/cumm [facility] Blood 08/25/2022 2:46 AM GLAZE MAKER 08/25/2022 2:50 AM GLAZE MAKER Elissa Torres MD LAB BLOOD ORDERABLES F inal Result Performing Organization Address City/[facility]/ZIP Co de Phone Number [facility] [place] [address] documented in this encounter Visit Diagnoses Diagnosis Post-tonsillectomy hemorrhage- Primary Hemorrhage following tonsillectomy documented in this encounter [...] Thu08/25/22 at 0415 Given 08/26/2022 6:29 AM GLAZE MAKER 650 mg Given 08/26/2022 12:25 AM GLAZE MAKER 650 mg Given 08/25/2022 5:41 PM GLAZE MAKER 650 mg dextrose 5% and Lactated Ringer's infusion 85 mL/hr, intravenous, Continuous, Starting on Thu08/25/22 at 0400, This fluid contains potassium and calcium. Do not infuse with phosphorus containing solutions New Bag 08/25/2022 3:48 AM GLAZE MAKER 85 mL/hr 85 mL/hr dextrose 5% and sodium chloride 0.9% infusion (premix) 87 mL/hr, intravenous, Continuous, Starting on Thu08/25/22 at 0204 New Bag 08/25/2022 2:52 AM GLAZE MAKER 87 mL/hr 87 mL/hr HYDROmorphone (PF) (DILAUDID) injection 0.188 mg 0.188 mg (0.41586 mg/kg, rounded from 0.1888 mg = 0.004 mg/kg ? 47.2 kg Dosing weight), intravenous, Administer over 5 Minutes, Every 5 min PRN, other, may administer up to 2 doses for acute pain management, Starting on Thu08/25/22 at 1327, For 2 doses, Phase I, Maximum dose = 0.4 mg, Indications: PainIndications:Pain Given 08/25/2022 1:39 PM GLAZE MAKER 0.188 mg lidocaine 1% buffered injection 0.1 mL 0.1 mL (0.33557 mL/kg), subcutaneous, Once, On Thu08/25/22 at 0204, For 1 dose, Maximum daily dose 0.1 mL/kg, Administer immediately prior to procedure. Given 08/25/2022 2:47 AM GLAZE MAKER 0.1 mL Other (Comment) oxyCODONE (ROXICODONE) 1 [...] pain., Indications: PainIndications:Pain Given 08/25/2022 2:10 PM GLAZE MAKER 4.7 mg documented in this encounter Active and Recently Administered Medications Times are shown in GLAZE MAKER. Scheduled Medication Order 08/24/2022 08/25/2022 08/26/2022 acetaminophen [...] buffered injection 0.1 mL (COMPLETED) 0.1 mL (0.01270 mL/kg), subcutaneous, Once, On Thu08/25/22 at 0204, For 1 dose, Maximum daily dose 0.1 mL/kg, Administer immediately prior to procedure. 0247 (Given - Provider: Brandie Lauren RN - Comment: R AC) Continuous Medication Order 08/24/2022 08/25/2022 08/26/2022 dextrose 5% and Lactated Ringer's infusion (CANCELED) 85 mL/hr, intravenous, Continuous, Starting on Thu08/25/22 at 0400, This fluid contains potassium and calcium. Do not infuse with phosphorus containing solutions 0348 (New Bag - Provider: Marleen Low, ROE)1600 (Stopped - Provider: Viki Stokes RN) dextrose 5% and sodium chloride 0.9% infusion (premix) (CANCELED) 87 mL/hr, intravenous, Continuous, Starting on Thu08/25/22 at 0204 0252 (New Bag - Provider: Brandie Lauren, ROE)0349 (Stopped - Provider: Marleen Low RN)0409 (Not Given - Provider: Marleen Low RN - Reason: Other - Comment: see mar) PRN Medication Order 08/24/2022 08/25/2022 08/26/2022 HYDROmorphone (PF) (DILAUDID) injection 0.188 mg (CANCELED) 0.188 mg (0.79468 mg/kg, rounded from 0.1888 mg = 0.004 [...] Indications: Pain 1410 (Given - Provider: Kristal Goodman, ROE) oxymetazoline (AFRIN) 0.05 % nasal spray (CANCELED) As needed, Starting on 08/25/22 at 1307, Intra-Op 1307 (Given - Provider: Brenda Thacker MD - Comment: used throughout case on tonsil balls) documented in this encounter Orders Medications Ordered That Lionel ht Not Have Been Administered Count Last Ordered Date First Ordered Date acetaminophen (TYLENOL) tablet 650 mg 1 Lactated Ringer's (LR) infusion 1 3 ondansetron (ZOFRAN) injection 4 mg 1 08/25 oxyCODONE (ROXICODONE) 1 mg/ mL oral solution 2.35 mg 1 08/25/2022 oxyCODONE (ROXICODONE) tablet 5 mg 1 2022 oxymetazoline (AFRIN) 0.05 % nasal spray 1 08/25/2022 Diet Count Last Ordered Date First Orde [...] 08/25/2022 documented in this encounter Care Teams P[employer] Mutual Ticket Checker Relationship Specialty Start Date End Date Ifeoma Calderon NP [address] [place] [address] PCP - General Nurse Practitioner 04/16/22 No, Physician 02/13/22 documented as of this encounter
--- OUTSIDE RECORDS SUMMARY | 2024-07-05 20:27 | XMS_ITS | Encounter Summary ---
Author Organization [facility] Healthcare Address [address] [place] [address] Care Team Providers Care Flower Planter Name Role Phone No, Physician Unavailable Ifeoma Calderon NP Primary Care Provider [phone] Reason for Visit * Reason Onset Date Comments Admit Notification 08/25/2022 Encounter Details Date Type Department Care Team (Late st Contact Info) Description 08/25/2022 Telephone 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 Gender Identity Not on file Sexual Orientation Not on file documented as of this encounter Miscellaneous Notes * Telephone Encounter - Pal Grace - 08/25/2022 7:18 AM CST Admission Notification PATIENT NAME: Rachel Worthy Restoff PATIENT : 2005 PATIENT PCP: Ifeoma Barnett NP [facility]OSPITAL: [facility] ROOM NUMBER: [id number] DIAGNOSIS: Post-op Problem EXCHANGE ACTION TAKEN: Faxed only [place] TECHNICIAN documented in this encounter Plan of Treatment Not on file documented as of this encounter Visit Diagnoses Not on filedocumented in this encounter Care Teams Flower Planter Relationship Specialty Start Date End Date Ifeoma Calderon NP [address] [place] [address] PCP - General Nurse Practitioner 04/16/22 No, Physician 02/13/22 documented as of this encounter
--- OUTSIDE RECORDS SUMMARY | 2024-07-05 20:27 | XMS_ITS | Encounter Summary ---
Author Organization [facility] Address [address] [place] [address] Phone Care Team Providers Care Regional Facilities Specialist Name Role Phone No, Physician Unavailable Ifeoma Calderon NP Primary Care Provider [phone] Reason for Visit * Consultation (Routine) - Closed Specialty Diagnoses / Procedures Referred By Contact Referred To Contact Pediatric Otolaryngology Diagnoses Chronic tonsillitis Ifeoma Calderon NP [address] [place] [address] Phone: tel:[phone] fax:[phone] [facility] (All Locations) Referral ID Status Reason Start Date Expiration Date V isits Requested Visits Authorized [id number] Closed Specialty Services Required 06/03/2022 07/03/2023 6 6 Encounter Details Date Type Department Care Team (Late st Contact Info) Description 11/04/2022 9:45 AM CDT Office Visit [facility] Otolaryngology [address] [address] [place] [address] Anupam Thakkar MD [facility] [address] [place] [address] Tonsillith (Primary Dx); Chronic tonsillitis Social History Tobacco Use Types Packs/Day Years [...] on file Legal Sex Female 6:58 AM 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 CARE REGISTERED NURSE Gender Identity Not on file Sexual Orientation Not on file documented as of this encounter Last Filed Vital Signs Vital Sign Reading Time Taken Comments Blood Pressure - - Pulse - - Temperature - - Respiratory Rate - - Oxygen Saturation - - Inhaled Oxygen Concentration - - Weight 51.7 kg (113 lb 15.7 oz) 023 10:15 AM CDT Height 161 cm (5' 3.39 ) 11/04/2022 10: 15 AM CDT Body Mass Index 19.95 11/04/2022 10:15 AM CDT Body Mass Index Percentile 31.40% 11/04 10:15 AM CDT Growth Chart: [facility] (Girls, 2- 20 Years) documented in this encounter Progress Notes * Anupam Thakkar MD - 11/04/2022 9:45 AM CDT PEDIATRIC OTOLARYNGOLOGY AMBULATORY FOLLOW UP NOTE Subjective/Objective Patient ID: Rachel Garza is a 17 y.o. female. Date of visit: 11/04/2022 Chief Complaint Postoperative evaluation, s/p Tonsillectomy on 08/19/22 History of Present Illness Rachel is an 17 y.o. female with a history of frequent sore throats and tonsil stones. She underwent Tonsillectomy on 08/19/22. She presented to [facility] ED on 08/25/22 due to bleeding and underwent cauterization in the OR. She presented to [facility] ED 10/03/2022 after gagging and noticing a small amount of blood in her mouth. ER examination by ER physicians was reassuring and she was sent home. She returns today for follow up evaluation. Her only interim complaints/observation is that she frequently looks at her throat and notices that there is a small lump or blister of her right superior tonsil fossa. This is asymptomatic and does not cause her any pain. Physical Exam Vitals Ht 161 cm (5' 3.39 ) Wt 51.7 kg (113 lb 15.7 oz) BMI 19.95 kg/m?? Rachel was alert and interactive, breathing comfortably through nose No increased WOB or stridor Left ear: Auricle was normal in size and normal in position. Canal with minimal cerumen. Tympanic membrane clear. Right ear: Auricle was normal in size and normal in position. Canal with minimal cerumen. Tympanic membrane clear. Nasal passages with no drainage and no crusting Oral cavity with healthy mucosa, without masses Oropharynx with 0+ tonsils with routine healing. There is a perhaps 1 mm slightly raised area of her right superior tonsil fossa that may represent a small nodule of scar or micro mucocele, and appears within normal limits for post tonsillectomy oropharynx. Neck without palpable masses or abnormalities Diagnostics: None Assessment/Plan Rachel is a 17 y.o. female with a history of tonsillectomy on 08/19/2022, with post tonsillectomy bleed managed with cautery in the OR. She is now fully healed with no remaining surgical concerns. Reassurance was provided today. ENT follow up on as-needed basis. ATTESTATION: The note in its entirety has been confirmed by me, the attending physician. Parts of the note were initially recorded by my clinic staff. Anupam Thakkar MD [facility] Pediatric Otolaryngology documented in this encounter Plan of Treatment Not on file documented as of this encounter Visit Diagnoses Diagnosis Tonsillith- Primary Chronic tonsillitis documented in this encounter Care Teams Regional Facilities Specialist Relationship Specialty Start Date End Date Ifeoma Calderon NP [address] [place] [address] PCP - General Nurse Practitioner 04/16/22 No, Physician 02/13/22 documented as of this encounter
--- OUTSIDE RECORDS SUMMARY | 2024-07-05 20:27 | XMS_ITS | Encounter Summary ---
Author Organization [facility] Healthcare Address [address] [place] [address] Care Team Providers Care Form Designer Name Role Phone No, Physician Unavailable Ifeoma Calderon NP Primary Care Provider [phone] Encounter Details Date Type Department Care Team ([facility] st Contact Info) Description 11/09/2023 Telephone [facility] Medical Group Obstetrical Gynecology [address] [place] [address] Mariann Goff LPN Social History Tobacco Use Types Packs/Day Years Used Date Smoking Tobacco: Former Passive Smoke Exposure: Never Smokeless Tobacco: Never AUDIT-C Answer Date Recorded [...] on file 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 Gender Identity Not on file Sexual Orientation Not on file documented as of this encounter Ordered Prescriptions Prescription Sig Dispense Quantity Refills Last Filled Start Date End Date norethindrone-e.es tradioL-iron (LOESTIN 24 FE) 1 mg-20 mcg (24)/75 mg (4) per tabletIndications: Breakthrough bleeding on Nexplanon Take 1 tablet by mouth daily 28 tablet 1 11/12/2023 01/07/2024 documented in this encounter Miscellaneous Notes * Addendum Note - Mariann Goff LPN - 11/12/2023 10:52 AM CDT Addended by: MARIANN GOFF on: 11/12/2023 10:52 AM Modules accepted: Orders * Telephone Encounter - Mariann Goff LPN - 11/12/2023 10:52 AM CDT Pt aware. 2 month refill sent of loestrin. * Telephone Encounter - Mariann Goff LPN - 11/11/2023 1:39 PM CDT LMOM for pt to call back. * Telephone Encounter - Mariann Goff LPN - 11/11/2023 9:40 AM CDT Call placed to pt but no answer and voicemail is full * Telephone Encounter - Mariann Goff LPN - 11/09/2023 1:33 PM CDT Call placed to pt but no answer and voicemail is full. * Telephone Encounter - Lesli Ferreira MD - 11/09/2023 12:18 PM CDT Please ensure she is still taking the loestrin. Would recommend 1-2 months of therapy * Telephone Encounter - Mariann Goff LPN - 11/09/2023 10:40 AM CDT Pt last seen 10/29/2023. Pt states she started back spotting Thursday. Pt was placed on loestrin to help stop breakthrough bleeding from nexplanon. Please advise documented in this encounter Plan of Treatment Not on file documented as of this encounter Visit Diagnoses Diagnosis Breakthrough bleeding on Nexplanon documented in this encounter Discontinued Medications Medication Sig Discontinue Reason Start Date End Da te norethindrone-e.estradio L-iron (LOESTIN 24 FE) 1 mg-20 mcg (24)/75 mg (4) per tabletIndications:Breakt hrough bleeding on Nexplanon Take 1 tablet by mouth daily Reorder 10/26/2023 11/12/2023 documented as of this encounter Care Teams Form Designer Relationship Specialty Start Date End Date Ifeoma Calderon NP [address] [place] [address] PCP - General Nurse Practitioner 04/16/22 No, Physician 02/13/22 documented as of this encounter
--- OUTSIDE RECORDS SUMMARY | 2024-07-05 20:27 | XMS_ITS | Encounter Summary ---
Author Organization [facility] Healthcare Address [address] [place] [address] Care Team Providers Care Solder Cream Maker Name Role Phone No, Physician Unavailable Ifeoma Calderon NP Primary Care Provider [phone] Reason for Visit * Auth/Cert Specialty Diagnoses / Procedures Referred By Feliciano baig Referred To Contact Diagnoses Recurrent tonsillitis Tonsillith Hypertrophy of tonsils Recurrent tonsillitis [J03.91] Tonsillith [J35.8] Hypertrophy of tonsils [J35.1] Procedures [place] TONSILLECTOMY PRIMARY/SECONDARY AGE 11/> TONSILLECTOMY Referral ID Status Reason Start Date Expiration Date Visits Re quested Visits Authorized [id number] 1 1 Encounter Details Date Type Department Care Team (Late st Contact Info) Description 08/19/2022 11:24 AM COMMERCIAL DIRECTOR Anesthesia Event [facility] Operating Room [address] [place] [id number] Lizzette Montaño MD [address] [facility] [address] [place] [address] Roger Ackerman NP [address] [place] [address] Anesthesia Record Procedure Summary Procedure Name Responsible Anesthesiologist Anesthesia Start Time Anesthesia Stop Time TONSILLECTOMY (Bilateral: Throat) Lizzette Montaño MD 08/19/22 1124 08/19/22 1207 Events Date Time Event Comment 08/19/2022 1124 An Start 1124 An Start Data 1124 In Room 1129 An Induction The patient was reevaluated immediately before moderate or deep sedation use and before anesthesia induction. 1131 An Intubation 1133 Anesthesia Ready 1138 Proc Start 1153 Proc Fin 1202 An Extubation 1202 an stop data 1203 Out of Room 1205 Handoff to RN I completed my handoff [...] the time of handoff: No value filed. 1207 An Stop Meds Name Total midazolam PF 2 mg lidocaine 1 % PF 20 mg propofol 200 mg HYDROmorphone 0.2 mg/mL 400 mcg dexamethasone 4 mg/ml 8 mg ondansetron PF 2 mg/mL 4 mg acetaminophen (OFIRMEV) 10 mg/mL injecti on 720 mg 720 mg dexmedeTOMIDine syringe 4 mcg/mL 8 mcg Lactated Ringer's (LR) infusion 200 mL * Agents Name O2 N2O Air Sevoflurane Inspired Sevoflurane * Blood No blood administrations on file. Lines, Drains, and Airways Type Details Placement Removal Peripheral IV Placement Date: 08/19/22; Placement Time: 1051; Catheter Size: 24 G; Orientation: Right; Location: Hand; Site Prep: Alcohol; Technique: Anatomical landmarks; Inserted by: Jaimie Morejon RN; Insertion Attempts: 2; Patient Tolerance: Anxious, Other (comment) (tearful, breath holding); Removal Date: 08/19/22; Removal Time: 1402 08/19/22 1051 by Lesli Morejon RN 08/19/22 1402 by Susi Naik, ROE RETIRED Surgical Site 08/19/22; 1140; [facility]; 08/19/22; 1450 08/19/22 1140 by Carline Saldana RN 08/19/22 1450 by Susi Naik, ROE ETT Placement Date: 08/19/22; Placement Time: 1143 (created via procedure documentation); Mask Ventilation: 1; Technique: Direct laryngoscopy; Type: CASSY tube; Single Lumen Tube Size: 6.5 mm; Cuffed: Yes; Laryngoscope: Indra; Blade Size: 3; Location: Oral; Grade View: Grade I; Insertion Attempts: 1; Placement Verification: Auscultation, Capnometry; Removal Date: 08/19/22; Removal Time: 1202 08/19/22 1143 by Yuli Taylor DO 08/19/22 1202 by Yuli Taylor DO documented in this encounter Social History Tobacco [...] on file Legal Sex Female 6:58 AM COMMERCIAL DIRECTOR Gender Identity Not on file Sexual Orientation Not on file documented as of this encounter OR Notes * Anesthesia Postprocedure Evaluation - Lizzette Montaño MD - 08/19/2022 2:41 PM CST Patient: Rachel S Restoff Procedure Summary Date: 08/19/22 Room / Location: [facility] OPERATING ROOM 2 / [facility] OPERATING ROOM Anesthesia Start: 1124 Anesthesia Stop: 1207 Procedure: TONSILLECTOMY (Bilateral: Throat) Diagnosis: Recurrent tonsillitis Tonsillith Hypertrophy of tonsils (Recurrent tonsillitis [J03.91]) (Tonsillith [J35.8]) (Hypertrophy of tonsils [J35.1]) Providers: Anupam Thakkar MD Responsible Provider: Lizzette Montaño MD Anesthesia Type: general ASA Status: 1 Anesthesia Type: general Last vitals BP 92/60 Pulse 79 Temp 36 ??C (96.8 ??F) (Temporal) Resp 15 SpO2 100% Anesthesia Post Evaluation Patient location during evaluation: PACU Patient participation: complete - patient participated Level of consciousness: fully awake Pain management: adequate Airway patency: adequate Evidence of recall: no Anesthetic complications: no Cardiovascular status: hemodynamically stable Respiratory status: room air and spontaneous ventilation Hydration status: stable Pt is: normothermic Nausea/Vomiting status: none No notable events documented. ERCIAL DIRECTOR ERCIAL DIRECTOR * Anesthesia Procedure Notes - Yuli Taylor DO - 08/19/2022 11:42 AM CSTAssociated Order(s): Airway Airway Patient location: OR Urgency: elective Indications for airway management: anesthesia Difficult airway: no Staff: Supervising provider: Lizzette Montaño MD Placed by: Fellow: Yuli Taylor DO Emergent airway documentation: Risks and benefits discussed: yes Consent obtained: yes Consent given by: parent Airway prep: Preoxygenated: yes Patient position: sniffing Mask difficulty assessment: 1 - vent by mask Spontaneous ventilation during airway: absent Sedation level during airway: GA Final airway details: Final airway type: endotracheal airway Tube type: CASSY tube ETT size: 6.5 mm Cuffed: yes Technique used for successful ETT placement: direct laryngoscopy Insertion site: oral Blade type: Indra Blade size: 3 Cormack-Lehane (direct): grade I - full view of glottis Cuff inflated with: air Placement verified by: auscultation and CO2 detection Airway secured with: silk tape Number of attempts: 1 ERCIAL DIRECTOR * Anesthesia Preprocedure Evaluation - Lizzette Montaño MD - 08/19/2022 10:26 AM CST Images from the original note were not included. Anesthesia Evaluation Rachel S Restoff is a 16 y.o. female Procedure(s): TONSILLECTOMY Pre-Op Diagnosis Codes: * Recurrent tonsillitis [J03.91] * Tonsillith [J35.8] * Hypertrophy of tonsils [J35.1] HISTORY HPI Rachel is a 16 yr old with recurrent tonsillitis and tonsil stones. She presents today for a tonsillectomy Past Medical History Information obtained from: patient, [...] Enlarged tonsils ??? Chronic tonsillitis ??? Tonsillith Past Medical History: Diagnosis Date ??? Enlarged tonsils ??? Tonsillith History reviewed. No pertinent surgical history. OB History No obstetric history on file. Allergies Allergen Reactions ??? Latex Other (See comments) [place] skin on contact Med List Status: Provider Complete Set By: Shalonda Alvarez BRICK PAVING CHECKER at 08/19/2022 10:25 AM Taking? Last Dose Start Date End Date Provider etonogestreL (Nexplanon) 68 mg implant -- 12/18/21 -- ProviderNano MD norgestimate-ethinyl estradioL (ORTHO-CYCLEN) 0.25-35 mg-mcg per tablet () -- 06/13/21 06/13/22 Lesli Ferreira MD Take 1 tablet by mouth daily Current Facility-Administered Medications: ??? acetaminophen (OFIRMEV) 10 mg/mL injection 720 mg, 15 mg/kg, intravenous, Once ??? Lactated Ringer's (LR) infusion, 87 mL/hr, intravenous, Continuous ??? lidocaine 1% buffered injection 0.1 mL, 0.1 mL, intradermal, Once PRN Social History Tobacco Use Smoking Status Former Smokeless Tobacco Never Alcohol Use: Heavy Drinker ??? Frequency of Alcohol Consumption: Monthly or less ??? Average Number of Drinks: 5 or 6 ??? Frequency of Binge Drinking: Less than monthly Substance and Sexual Activity Drug Use Never Family History Problem Relation Age of Onset ??? Breast cancer Neg Hx ??? Ovarian cancer Neg Hx PAT Physical Exam Airway Exam: Mallampati: I Cervical ROM: FROM TM distance: normal Cardiovascular Exam: Rate: regular Rhythm: regular Pulmonary Exam: LCTA, bilat Coarse lungs negative Crackles negative Wheezing negative EENT Exam: trachea midline Dental Exam: Appears intact and braces (Braces noted to top and bottom and intact with brackets and wires ) Skin Exam: Skin is warm and dry. Capillary refill is < 3 seconds. Turgor is normal. Anterior fontanelles: Fontanelles are closed. Current state: Patient's current state is interactive and anxious. Additional comments: GA: IV induction, LMA vs ETT, pain management, and side effects/risks discussed with caregiver and agree with plan. Pt very anxious about needles and about going under anesthesia. Answered all questions that patient had. Patient would be a candidate for IV Versed prior to goingback to OR. Vitals: 08/19/22 1004 BP: 114/71 Pulse: 92 Resp: 20 Temp: 36.8 ??C (98.2 ??F) SpO2: 96% PT: No results found for requested labs within last 720 hours. INR: No results found for requested labs within last 720 hours. APTT: No results found for requested labs within last 720 hours. Hgb A1C: No results found for requested labs within last 720 hours. CBC RBC: No results found for requested labs within last 720 hours. RDW: No results found for requested labs within last 720 hours. MCHC: No results found for requested labs within last 720 hours. MCH: No results found for requested labs within last 720 hours. MCV: No results found for requested labs within last 720 hours. Hct: No results found for requested labs within last 720 hours. Hgb: No results found for requested labs within last 720 hours. WBC: No results found for requested labs within last 720 hours. MPV: No results found for requested labs within last 720 hours. Platelets: No results found for requested labs within last 720 hours. RDW CV: No results found for requested labs within last 720 hours. RDW Sd: No results found for requested labs within last 720 hours. BMP Glucose: No results found for requested [...] and allergies reviewed. Attestation: This PAT evaluation 08/19/2022. Airway Exam: Mallampati: I Cervical ROM: FROM TM distance: normal Cardiovascular Exam: Rate: regular Rhythm: regular Pulmonary Exam: LCTA, bilat EENT Exam: trachea midline Dental Exam: Appears intact Skin Exam: Skin is warm. Abdominal Exam: Abdomen is soft. Current state: Patient's current state is anxious. Anesthesia Plan ASA 1 My patient is approved for the Anesthesia Controlled Medication protocol when under care of a LASER PRINTING OPERATOR Planned anesthesia: General Team communication plan: oral ET tube Induction: Induction: intravenous. Postoperative Plan: Postoperative administration opioids intended. No postoperative mechanical ventilation intended. Patient's planned disposition post procedure is Outpatient. Informed Consent: Discussed plan with fellow. Anesthesia plan and risks discussed with patient, mother and father. Consent and Attending signature: I and/or my designee have discussed the anesthesia plan, benefits, possible alternatives, parental presence at time of induction (if indicated), and clinically relevant risks that may include dental injury, unintentional awareness, and/or other complications. The patient and/or parent/legal guardian understand, and agree to proceed. All questions answered. ERCIAL DIRECTOR ERCIAL DIRECTOR ERCIAL DIRECTOR documented in this encounter Plan of Treatment Not on file documented as of this encounter Procedures Procedure Name Priority Date/Time Associated Diagnosis Comments ANESTHESIA INTUBATION Routine 08/19/2022 11:42 AM COMMERCIAL DIRECTOR documented in this encounter Results * Airway (08/19/2022 11:42 AM COMMERCIAL DIRECTOR) Narrative Yuli Taylor DO - 08/19/2022 11:42 AM COMMERCIAL DIRECTOR Yuli Taylor, DO ? 08/19/2022 11:43 AM Airway Patient location: OR Urgency: elective Indications for airway management: anesthesia Difficult airway: no Staff: Supervising provider: Lizzette Montaño MD Placed by: Fellow: Yuli Taylor DO Emergent airway documentation: Risks and benefits discussed: yes Consent obtained: yes Consent given by: parent Airway prep: Preoxygenated: yes Patient position: sniffing Mask difficulty assessment: 1 - vent by mask Spontaneous ventilation during airway: absent Sedation level during airway: GA Final airway details: Final airway type: endotracheal airway Tube type: CASSY tube ETT size: 6.5 mm Cuffed: yes Technique used for successful ETT placement: direct laryngoscopy Insertion site: oral Blade type: Indra Blade size: 3 Cormack-Lehane (direct): grade I - full view of glottis Cuff inflated with: air Placement verified by: auscultation and CO2 detection Airway secured with: silk tape Number of attempts: 1 Lizzette Montaño MD ANESTHESIA ORDERABLES Katia l Result documented in this encounter Visit Diagnoses Not on filedocumented in this encounter Administered Medications Inactive Administered Medications - up to 3 most recent administrations Medication Order MAR Action Action Date Dose Rate Site acetaminophen (OFIRMEV) 10 mg/mL injection 720 mg 720 mg (15.1 mg/kg, rounded from 717 mg = 15 mg/kg ? 47.8 kg), intravenous, Administer over 15 Minutes, Once, On Thu08/19/22 at 1045, For 1 dose, Pre-Op, Maximum dose = 1000 mg Room temperature only, Indications: PainIndications:Pain Given 08/19/2022 11:47 AM COMMERCIAL DIRECTOR 720 mg dexAMETHasone (DECADRON) 4 mg/mL injection intravenous, Administer over 30 Minutes, As needed, Starting on Thu08/19/22 at 1141, Anesthesia Intra-op Given 08/19/2022 11:41 AM COMMERCIAL DIRECTOR 8 mg dexmedeTOMIDine (PRECEDEX) 80 mcg/20 mL (4 mcg/mL) in sodium chloride 0.9% (premix) intravenous, As needed, Starting on Thu08/19/22 at 1136, Anesthesia Intra-op Given 08/19/2022 11:36 AM COMMERCIAL DIRECTOR 8 mcg HYDROmorphone (PF) (DILAUDID) injection intravenous, Administer over 5 Minutes, As needed, Starting on Thu08/19/22 at 1129, Anesthesia Intra-op Given 08/19/2022 11:57 AM COMMERCIAL DIRECTOR 200 mcg Given 08/19/2022 11:29 AM COMMERCIAL DIRECTOR 200 mcg Lactated Ringer's (LR) infusion 87 mL/hr, intravenous, Continuous, Starting on Thu08/19/22 at 1045, Pre-Op, Restarted 08/19/2022 11:24 AM COMMERCIAL DIRECTOR New Bag 08/19/2022 10:59 AM COMMERCIAL DIRECTOR 87 mL/hr 87 mL/hr lidocaine PF (XYLOCAINE) 10 mg/mL (1 %) preservative free injection intravenous, As needed, Starting on Thu08/19/22 at 1129, Anesthesia Intra-op Given 08/19/2022 11:29 AM COMMERCIAL DIRECTOR 20 mg midazolam (VERSED) 1 mg/mL preservative free injection intravenous, Administer over 2 Minutes, As needed, Starting on Thu08/19/22 at 1124, Anesthesia Intra-op Given 08/19/2022 11:24 AM COMMERCIAL DIRECTOR 2 mg ondansetron (ZOFRAN) injection intravenous, Administer over 15 Minutes, As needed, Starting on Thu08/19/22 at 1141, Anesthesia Intra-op Given 08/19/2022 11:41 AM COMMERCIAL DIRECTOR 4 mg propofoL (DIPRIVAN) 10 mg/mL IV intravenous, As needed, Starting on Thu08/19/22 at 1129, Anesthesia Intra-op Given 08/19/2022 11:29 AM COMMERCIAL DIRECTOR 200 mg documented in this encounter Care Teams Solder Cream Maker Relationship Specialty Start Date End Date Ifeoma Calderon NP [address] [place] [address] PCP - General Nurse Practitioner 04/16/22 No, Physician 02/13/22 documented as of this encounter
--- OUTSIDE RECORDS SUMMARY | 2024-07-05 20:27 | XMS_ITS | Encounter Summary ---
Author Organization [facility] Healthcare Address [address] [place] [address] Care Team Providers Care Commission Sales Associate Name Role Phone No, Physician Unavailable Ifeoma Calderon NP Primary Care Provider [phone] Reason for Visit * Auth/Cert Specialty Diagnoses / Procedures Referred By Feliciano baig Referred To Contact Diagnoses Recurrent tonsillitis Tonsillith Hypertrophy of tonsils Recurrent tonsillitis [J03.91] Tonsillith [J35.8] Hypertrophy of tonsils [J35.1] Procedures MD TONSILLECTOMY PRIMARY/SECONDARY AGE 12/> TONSILLECTOMY Referral ID Status Reason Start Date Expiration Date Visits Re quested Visits Authorized [id number] 1 1 Encounter Details Date Type Department Care Team (Late st Contact Info) Description 08/19/2022 9:51 AM GROUP SUPERVISOR YARD - 08/19/2022 3:00 PM [facility] Hospital Encounter [facility] Operating Room [address] [place] [address] Anupam Thkakar MD 1 [facility] [address] [place] [address] Discharge Disposition: Discharge to home or self [...] on file Legal Sex Female 6:58 AM GROUP SUPERVISOR YARD Gender Identity Not on file Sexual Orientation Not on file documented as of this encounter Last Filed Vital Signs Vital Sign Reading Time Taken Comments Blood Pressure 92/60 08/19/2022 12:21 PM GROUP SUPERVISOR YARD Pulse 79 08/19/2022 12:21 PM GROUP SUPERVISOR YARD Temperature 36 ??C (96.8 ??F) 08/19/2022 12: 04 PM GROUP SUPERVISOR YARD Respiratory Rate 15 08/19/2022 12:2 1 PM GROUP SUPERVISOR YARD Oxygen Saturation 100% 08/19/2022 12: 21 PM GROUP SUPERVISOR YARD Inhaled Oxygen Concentration - - Weight 48.7 kg (107 lb 5.8 oz) 08/19/19 23 10:04 AM GROUP SUPERVISOR YARD Height 161.2 cm (5' 3.47 ) 08/19/2022 1 0:04 AM GROUP SUPERVISOR YARD Body Mass Index 18.74 08/19/2022 10:04 AM GROUP SUPERVISOR YARD Body Mass Index Percentile 16.17% 08/19 10:04 AM GROUP SUPERVISOR YARD Growth Chart: [facility] (Girls, 2- 20 Years) documented in this encounter Discharge Instructions * Attachments The following attachments cannot be sent through Care Everywhere. * Acetaminophen and Ibuprofen Dosing in Children (AfterCare(R) Instructions(ER/ED)) (Polish) documented in this encounter Medications at Time of Discharge etonogestreL (Nexplanon) 68 mg implant Nexplanon 68 [...] Refills Last Filled Start Date End Date oxyCODONE (ROXICODONE) solution 5 mg/5 mLIndications:Pain Take 2.5 mL (2.5 mg total) by mouth every 4 (four) hours as needed for pain for up to 12 doses 30 mL 08/19/2022 ibuprofen (ADVIL,MOTRIN) suspension 100 mg/5 mL Take 24.4 mL (488 mg total) by mouth every 6 (six) hours as needed for pain 118 mL 08/19/2022 acetaminophen (TYLENOL) suspension 160 mg/5 mL Take 15 mL (480 mg total) by mouth every 4 (four) hours as needed for pain for up to 10 days 118 mL 08/19/2022 08/29/2022 documented in this encounter Discharge Disposition Disposition Code Departure Means Destination Discharge to home or self care documented in this encounter H&P Notes * Anupam Thakkar MD - 08/19/2022 3:00 PM CST I have reviewed the H&P, examined the patient, and endorse the findings as written. Plan of Care : Based on the above findings, I consider Rachel Worthy Restoff to be an acceptable risk for : Procedure(s): TONSILLECTOMY Anupam Thakkar MD Sulfur Burner Pediatric Otolaryngology P SUPERVISOR YARD Source Note - Lizzette Montaño MD - 08/19/2022 10:26 AM GROUP SUPERVISOR YARD Images from the original note were not [...] Allergen Reactions ??? Latex Other (See comments) [place] skin on contact Med List Status: Provider Complete Set By: Shalonda Alvarez NP at 08/19/2022 10:25 AM Taking? Last Dose [...] Medication protocol when under care of a DEHYDRATING PRESS OPERATOR Planned anesthesia: General Team communication plan: [...] and agree to proceed. All questions answered. P SUPERVISOR YARD P SUPERVISOR YARD P SUPERVISOR YARD documented in this encounter Miscellaneous Notes * Op Note - Anupam Thakkar MD - 08/19/2022 11:00 AM CST Pediatric Otolaryngology Operative Note Attending Surgeon: Anupam Thakkar MD Surgical Assistants: Surgeon(s) and Role: * Anupam Thakkar MD - Primary Date of Surgery: 08/19/2022 Preoperative Diagnosis: Recurrent tonsilliths Tonsil hypertrophy Postoperative Diagnosis: Same Anesthesia: Anesthesiologist: Lizzette Montaño MD Anesthesia type: General Procedure: Bilateral tonsillectomy Indication for the procedure: The patient is a 16 y.o. female child with a history of tonsil hypertrophy and recurrent tonsilliths that are bothersome to her and affect her quality of life. She presents for tonsillectomy. This procedure has been fully reviewed with the patient's caregivers and written informed consent has been obtained. Findings: 3+ tonsillar hypertrophy; left tonsilliths noted Complications: none EBL: 2 mL Procedure: The patient was met in pre-operative holding. Consent as well as identification was reviewed. The patient was then brought to the operating room and was administered a general anesthetic and was orotracheally intubated. A preoperative time-out was performed, reviewing patient identification, operative site, high risk, and anticipated equipment needs per institutional protocol, with all those present in agreement. An appropriately sized asya-jonathon gag was inserted and supported. The hard palate was palpated andthere was no notching to suggest a submucus cleft palate. Attention was first paid to the right tonsil. It was grasped with straight Allis forceps and medialized. The monopolar electrocautery at 8 bianchi was used to make a mucosal incision and find the tonsil capsule. This was followed closely as the tonsil was divided from the superior constrictor muscle. The tonsil was then pedicled at its attachment to the lingual tonsil and this was divided with the cautery and the tonsil was removed. Care was taken to preserve the anterior tonsillar pillar. The same procedure was repeated on the left side. Once again the monopolar electrocautery was used at 8 bianchi to dissect the tonsil from the muscle and divide it from the lingual tonsil inferiorly. Several small bleeding areas were cauterized with the bipolar set to 10 bianchi. A total of 3 mL of 0.5% marcaine was injected into anterior and posterior pillar mucosa pre- and post-resection, and sprayed topically in the fossae at the conclusion of the case. The gag was removed once hemostasis was assured and orogastric suction had been applied. All counts were correct. The patient was then returned under the care of the anesthesiology team ingood and stable condition, was awakened without difficulty, and sent to recovery. Anupam Thakkar MD Sulfur Burner Pediatric Otolaryngology Date: 08/19/2022 Time: 11:55 AM No Resident involved on case P SUPERVISOR YARD documented in this encounter Plan of Treatment Not on file documented as of this encounter Procedures Procedure Name Priority Date/Time Associated Diagnosis Comments TONSILLECTOMY 08/19/2022 11:24 AM GROUP SUPERVISOR YARD Recurrent tonsillitis Tonsillith Hypertrophy of tonsils HCG, URINE, QUALITATIVE Routine 08/19/2022 10:07 AM GROUP SUPERVISOR YARD documented in this encounter Results * hCG, urine, qualitative (08/19/2022 10:07 AM GROUP SUPERVISOR YARD) HCG, ur Negative Negative [facility] Comment:Testing performed by : [facility], [address] [place] [id number] Urine 08/19/2022 10:0 7 AM GROUP SUPERVISOR YARD 08/19/2022 10:11 AM GROUP SUPERVISOR YARD Roger Ackerman NP LAB URINE ORDERABLES Katia johnson Result [facility] Department [place] [address] documented in this encounter Visit Diagnoses Diagnosis Chronic tonsillitis Tonsillith Enlarged tonsils Hypertrophy of tonsils alone documented in this encounter Admitting Diagnoses Diagnosis Chronic tonsillitis Tonsillith Enlarged tonsils Hypertrophy of tonsils alone documented in this encounter Administered Medications Inactive Administered Medications - up to 3 most recent administrations Medication Order MAR Action Action Date Dose Rate Site Lactated Ringer's (LR) infusion 87 mL/hr, intravenous, Continuous, Starting on Thu08/19/22 at 1045, Pre-Op, Restarted 08/19/2022 11:24 AM GROUP SUPERVISOR YARD New Bag 08/19/2022 10:59 AM GROUP SUPERVISOR YARD 87 mL/hr 87 mL/hr lidocaine 1% buffered injection 0.1 mL 0.1 mL (0.22685 mL/kg), intradermal, Once as needed, other, IV insertion, Starting on Thu08/19/22 at 1004, For 1 dose, Pre-Op, Maximum daily dose 0.1 mL/kg Administer immediately prior to procedure. Given 08/19/2022 10:51 AM GROUP SUPERVISOR YARD 0.1 mL documented in this encounter Discontinued Medications Medication Sig Discontinue Reason Start Date End Da te etonogestreL (NEXPLANON) 68 mg implantIndications:Pregn boo Contraception Therapy completed 08/19/2022 norgestimate-ethinyl estradioL (ORTHO-CYCLEN) 0.25-35 mg-mcg per tablet Take 1 tablet by mouth daily Stop Taking at Discharge 06/13/2021 08/19/2022 documented as of this encounter Active and Recently Administered Medications Times are shown in GROUP SUPERVISOR YARD. Scheduled Medication Order 08/17/2022 08/18/2022 08/19/2022 acetaminophen (OFIRMEV) 10 mg/mL injection 720 mg (COMPLETED) 720 mg (15.1 mg/kg, rounded from 717 mg = 15 mg/kg ? 47.8 kg), intravenous, Administer over 15 Minutes, Once, On Thu08/19/22 at 1045, For 1 dose, Pre-Op, Maximum dose = 1000 mg Room temperature only, Indications: Pain 1147 (Given - Provid er: Yuli Taylor DO) Continuous Medication Order 08/17/2022 08/18/2022 08/19/2022 Lactated Ringer's (LR) infusion 87 mL/hr, intravenous, Continuous, Starting on Thu08/19/22 at 1045, Pre-Op, 1059 (New Bag - Prov ider: Lesli Morejon RN)1123 (Paused - Provider: Yuli Taylor DO - Comment: Switch to gravity)1124 (Restarted - Provider: Yuli Taylor DO)1157 (Stopped - Provider: Yuli Taylor DO) Lactated Ringer's (LR) infusion 75 mL/hr, intravenous, Continuous, Starting on Thu08/19/22 at 1245, For 6 hours, Phase I, 1245 (Due) PRN Medication Order 08/17/2022 08/18/2022 08/19/2022 albuterol 2.5 mg /3 mL (0.083 %) nebulizer solution 2.5 mg 2.5 mg (0.0513 mg/kg), nebulization, Once as needed, wheezing, Starting on Thu08/19/22 at 1210, For 6 hours, Phase I, Notify anesthesiologist to evaluate, Indications: Wheezing bupivacaine (MARCAINE) 0.25 % (2.5 mg/mL) preservative free injection (CANCELED) As needed, Starting on Thu08/19/22 at 1139, Intra-Op 1139 (Given - Provid er: Anupam Thakkar MD) HYDROmorphone (PF) (DILAUDID) injection 0.2 mg 0.2 mg (0.84040 mg/kg), intravenous, Administer over 5 Minutes, Every 5 min PRN, other, 1st line for pain OR if patient unable to tolerate oral; may administer up to 2 doses for acute pain management, Starting on Thu08/19/22 at 1210, For 6 hours, Phase I, Maximum dose = 0.4 mg, Indications: Pain lidocaine 1% buffered injection 0.1 mL (COMPLETED) 0.1 mL (0.97208 mL/kg), intradermal, Once as needed, other, IV insertion, Starting on Thu08/19/22 at 1004, For 1 dose, Pre-Op, Maximum daily dose 0.1 mL/kg Administer immediately prior to procedure. 1051 (Given - Provid er: Lesli Morejon RN) oxyCODONE (ROXICODONE) tablet 5 mg 5 mg (0.103 mg/kg), oral, Once as needed, other, for non-acute pain only after treatment of pain with non-opioid pain medication, if co-ordered, Starting on Thu08/19/22 at 1210, For 6 hours, Phase I, Maximum dose = 10 mg; may repeat in 2-4 hours as needed for continued ongoing pain., Indications: Pain documented in this encounter Orders Medications Ordered That Lionel ht Not Have Been Administered Count Last Ordered Date First Ordered Date acetaminophen (OFIRMEV) 10 m g/mL injection 720 mg 1 08/19/2022 albuterol 2.5 mg /3 mL (0.08 3 %) nebulizer solution 2.5 mg 1 08/19/2022 bupivacaine (MARCAINE) 0.25 % (2.5 mg/mL) preservative free injection 08/19/2022 HYDROmorphone (PF) (DILAUDID ) injection 0.2 mg 1 08/19/2022 Lactated Ringer's (LR) infusion lidocaine 1% buffered injection 0.1 mL oxyCODONE (ROXICODONE) tablet 5 mg 1 2022 Diet Count Last Ordered Date First Orde red Date PEDIATRIC DISCHARGE DIET 1 08/19/2022 Nursing Count Last Ordered Date First Orde red Date DISCHARGE ACTIVITY 1 08/19/2022 DISCHARGE CALL PROVIDER 1 08/19/2022 DISCHARGE FOLLOW UP 1 08/19/2022 DISCHARGE INSTRUCTIONS 3 08/19/2022 documented in this encounter Care Teams Commission Sales Associate Relationship Specialty Start Date End Date Ifeoma Calderon NP [address] [place] [address] PCP - General Nurse Practitioner 04/16/22 No, Physician 02/13/22 documented as of this encounter
--- OUTSIDE RECORDS SUMMARY | 2024-07-05 20:27 | XMS_ITS | Encounter Summary ---
Author Organization [facility] Healthcare Address [address] [place] [address] Care Team Providers Care Seed Yeast Operator Name Role Phone No, Physician Unavailable Ifeoma Calderon NP Primary Care Provider [phone] Reason for Visit * Reason Comments Leg Pain Encounter Details Date Type Department Care Team (Late st Contact Info) Description 11/25/2022 3:39 AM CDT - 11/25/2022 5:50 AM CDT Emergency [facility] Emergency Department [facility] [place] [address] Angela Workman MD [address] [place] [address] [place] [address] Leg pain, bilateral (Primary Dx) Discharge Disposition: Discharge to home [...] on file Legal Sex Female 6:58 AM BITE BLOCK MAKER Gender Identity Not on file Sexual Orientation Not on file documented as of this encounter Last Filed Vital Signs Vital Sign Reading Time Taken Comments Blood Pressure 120/68 11/25/2022 5:50 AM CDT Pulse 76 11/25/2022 5:50 AM CDT Temperature 36.7 ??C (98 ??F) 11/25/2022 3:08 AM CDT Respiratory Rate 16 11/25/2022 5:50 AM CDT Oxygen Saturation 99% 11/25/2022 5:50 AM CDT Inhaled Oxygen Concentration - - Weight 52.2 kg (115 lb) 11/25/2022 3:10 AM CDT Height 160 cm (5' 3 ) 11/25/2022 3:10 AM CDT Body Mass Index 20.37 11/25/2022 3:10 AM CDT Body Mass Index Percentile 37.07% 11/25/2022 3:1 0 AM CDT Growth Chart: [facility] (Girls, 2- 20 Years) documented in this encounter Discharge Instructions * Discharge Instructions* Angela Workman MD - 11/25/2022 5:46 AM CDT Follow-up as recommended is mandatory. You have received emergency care only at your visit today. This is not a substitute for ongoing care, further evaluation and treatment and therefore follow-up as directed is not optional but mandatory You MUST follow up for further evaluation of all incidental abnormal radiographic and laboratory findings, Have your physician obtain records from this visit and address all the incidental abnormal findings. This may include final results of lab testing, cultures, final x-ray reports which may not have been available during the time of the visit. Return immediately for any new symptoms, worsening of symptoms, or persistent symptoms * Attachments The following attachments cannot be sent through Care Everywhere. * Leg Pain (AfterCare(R) Instructions(ER/ED)) (Swedish) documented in this encounter Medications at Time [...] documented in this encounter ED Notes * Angela Workman MD - 11/25/2022 4:03 AM CDT HPI Chief Complaint Patient presents with Leg Pain HPI 4:03 AM Rachel S Restoff is a 17 y.o. female presenting to the ED c/o bilateral lower extremity legpain. Per mom patient has been using the stair step machine 45 minutes today for the past 3 days. Patient very tearful due to leg cramps Patient History: Past Medical History: Diagnosis Date Enlarged tonsils Tonsillith Past Surgical History: Procedure Laterality Date FOOT SURGERY TONSILLECTOMY Family History Problem Relation Age of Onset Breast cancer Neg Hx Ovarian cancer Neg Hx Social History Tobacco Use Smoking status: Former Passive exposure: Never Smokeless tobacco: Never Substance and Sexual Activity Drug use: Never Sexual activity: Yes control/protection: Implant Alcohol Use: Heavy Drinker (02/14/2022) AUDIT-C Frequency of Alcohol Consumption: Monthly or less Average Number of Drinks: 5 or 6 Frequency of Binge Drinking: Less than monthly No current facility-administered medications for this encounter. Current Outpatient Medications: acetaminophen (TYLENOL) solution 160 mg/5 mL etonogestreL (Nexplanon) 68 mg implant ibuprofen (ADVIL,MOTRIN) suspension 100 mg/5 mL oxyCODONE (ROXICODONE) solution 5 mg/5 mL Review of Systems Review of Systems All systems reviewed and are neg or non contributory for this patients presentation today other than as stated in the HPI . Physical Exam ED Triage Vitals Temp Pulse Resp BP SpO2 11/25/22 0308 0530711/25/2230711/25/2230711/25/22307 36.7 ??C (98 ??F) 100 22 131/67 100 % Temp src Heart Rate Source Patient Position BP Location FiO2 (%) 11/25/22307 -- -- -- -- Oral Height Height Method Weight Weight Method 11/25/22309 -- 11/25/2230911/25/22307 1.6 m (5' 3 ) 52.2 kg (115 lb) Standing scale Physical Exam Vitals and nursing note reviewed. Constitutional: General: She is not in acute distress. Appearance: Normal appearance. Comments: anxious HENT: Head: Normocephalic and atraumatic. Nose: Nose normal. Eyes: General: Right eye: No discharge. Left eye: No discharge. Conjunctiva/sclera: Conjunctivae normal. Cardiovascular: Rate and Rhythm: Normal rate and regular rhythm. Pulmonary: Effort: Pulmonary effort is normal. No respiratory distress. Breath sounds: Normal breath sounds. No wheezing. Abdominal: General: There is no distension. Palpations: Abdomen is soft. Tenderness: There is no abdominal tenderness. Musculoskeletal: General: No swelling, tenderness or deformity. Normal range of motion. Cervical back: Normal range of motion. No rigidity. Skin: General: Skin is warm and dry. Neurological: General: No focal deficit present. Mental Status: She is alert and oriented to person, place, and time. Psychiatric: Mood and Affect: Mood normal. Behavior: Behavior normal. Procedures MDM Labs Reviewed CREATINE KINASE (CK), TOTAL - Abnormal Result Value CK 223 (*) No orders to display BP 131/67 Pulse 100 Temp 36.7 ??C (98 ??F) (Oral) Resp 22 Ht 160 cm (5' 3 ) Wt 52.2 kg (115 lb) SpO2 100% BMI 20.37 kg/m?? MDM Amount and/or Complexity of Data Reviewed Clinical lab tests: reviewed ED Course as of 11/25/22546 Time: 11/25 544 Comment: Patient refused all other labs. Her creatinine kinase is 223. She is pain-free uncomfortable. Will DC to home By: Angela Workman MD This examination was transcribed using the myRete voice recognition system without human parer. In an effort to expedite patient care, this report has not been adjusted for typographical, grammatical, and syntax by a trained medical and scientific illustrator. Clinical Impression: Leg pain, bilateral Angela Workman MD 11/25/22 9447 * Madelyn Drake RN - 11/25/2022 3:45 AM CDT This RN took patient via wheelchair to ED room 11. Patient's father lifted patient from wheelchair to bed. Unsuccessful x 1 for IV access. Sharla RN at bedside. Madelyn Drake RN 11/25/22 0356 * Madelyn Drake RN - 11/25/2022 3:08 AM CDT Patient here with c/o bilateral leg pain after working out at the gym for the last 3 days. Crying in triage. Denies injury. States she has not been drinking enough. Both parents present. Alert. Oriented. No medical hx. Denies taking any OTC meds prior to ED. documented in this encounter Plan of Treatment Not on file documented as of this encounter Procedures Procedure Name Priority Date/Time Associated Diagnosis Comments CREATINE KINASE (CK), TOTAL Add-On 11/25/2022 3:51 AM CDT documented in this encounter Results * (ABNORMAL) Creatine kinase (CK), total (11/25/2022 3:51 AM CDT) CK 223(H) 30 - 200 Units/L [facility] Comment: HEMOLYZED: Hemolysis interferes with the above test. Testing performed by: [facility], [address] [place] [address], [place]., [address] Blood 11/25/2022 3:51 AM CDT 11/25/2022 5:20 AM CDT us Angela Workman MD LAB BLOOD ORDERABLES Katia johnson Result [facility] [address] [facility] Department [place] [address] documented in this encounter Visit Diagnoses Diagnosis Leg pain, bilateral- Primary Pain in soft tissues of limb documented in this encounter Administered Medications Inactive Administered Medications - up to 3 most recent administrations Medication Order MAR Action Action Date Dose Rate Site ibuprofen (ADVIL,MOTRIN) tablet/capsule 600 mg 600 mg, oral, Once, On Thu11/25/22 at 0403, For 1 dose Given 11/25/2022 4:20 AM CDT 600 mg documented in this encounter Active and Recently Administered Medications Times are shown in CDT. Scheduled Medication Order 11/23/2022 11/24/2022 11/25/2022 ibuprofen (ADVIL,MOTRIN) tablet/capsule 600 mg (COMPLETED) 600 mg, oral, Once, On Thu11/25/22 at 0403, For 1 dose 0420 (Given - Provid er: Sharla Hyde, RN) documented in this encounter Orders Medications Ordered That Lionel ht Not Have Been Administered Count Last Ordered Date First Ordered Date ibuprofen (ADVIL,MOTRIN) tab let/capsule 600 mg 1 11/25/2022 documented in this encounter Care Teams Seed Yeast Operator Relationship Specialty Start Date End Date Ifeoma Calderon NP [address] [place] [address] PCP - General Nurse Practitioner 04/16/22 No, Physician 02/13/22 documented as of this encounter
--- OUTSIDE RECORDS SUMMARY | 2024-07-05 20:27 | XMS_ITS | Encounter Summary ---
Author Organization [facility] Healthcare Address [address] [place] [address] Care Team Providers Care Production Planner Name Role Phone No, Physician Unavailable Ifeoma Calderon NP Primary Care Provider [phone] [phone] Reason for Visit * Auth/Cert Specialty Diagnoses / Procedures Referred By Feliciano baig Referred To Contact Diagnoses Recurrent tonsillitis Tonsillith Hypertrophy of tonsils Recurrent tonsillitis [J03.91] Tonsillith [J35.8] Hypertrophy of tonsils [J35.1] Procedures SC TONSILLECTOMY PRIMARY/SECONDARY AGE 11/> TONSILLECTOMY Referral ID Status Reason Start Date Expiration Date Visits Re quested Visits Authorized [id number] 1 1 Encounter Details Date Type Department Care Team (Late st Contact Info) Description 08/19/2022 11:00 AM [facility] - 08/19/2022 11:45 AM [facility] Surgery [facility] Operating Room [address] [place] [id number] Anupam Thakkar MD 1 [facility] [address] [place] [address] TONSILLECTOMY Surgery Details Date/Time Status Location OR Service Patient Class Case Class Case Type Trauma Case? 08/19/2022 11:00 AM Posted [facility] OPERATING ROOM OR Otolaryngology Outpatient Elective Panel 1 Procedure LRB Anes Op Region Wound Class Comments TONSILLECTOMY Bilateral General Throat Class II - Clean Contaminated Surgeon Surgeon Role Service Panel Anupam Thakkar MD Primary Otolaryngology 1 documented in this [...] on file Legal Sex Female 6:58 AM MANAGING DIRECTOR ATLAS Gender Identity Not on file Sexual Orientation Not on file documented as of this encounter Last Filed Vital Signs Vital Sign Reading Time Taken Comments Blood Pressure 114/71 08/19/2022 10:04 AM MANAGING DIRECTOR ATLAS Pulse 92 08/19/2022 10:04 AM MANAGING DIRECTOR ATLAS Temperature 36.8 ??C (98.2 ??F) 08/19/2022 1 0:04 AM MANAGING DIRECTOR ATLAS Respiratory Rate 20 08/19/2022 10:0 4 AM MANAGING DIRECTOR ATLAS Oxygen Saturation 96% 08/19/2022 10: 04 AM MANAGING DIRECTOR ATLAS Inhaled Oxygen Concentration - - Weight 48.7 kg (107 lb 5.8 oz) 08/19/19 23 10:04 AM MANAGING DIRECTOR ATLAS Height 161.2 cm (5' 3.47 ) 08/19/2022 1 0:04 AM MANAGING DIRECTOR ATLAS Body Mass Index 18.74 08/19/2022 10:04 AM MANAGING DIRECTOR ATLAS Body Mass Index Percentile 16.17% 08/19 10:04 AM MANAGING DIRECTOR ATLAS Growth Chart: [facility] (Girls, 2- 20 Years) documented in this encounter Discharge Instructions * Attachments The following attachments cannot be sent through Care Everywhere. * Acetaminophen and Ibuprofen Dosing in Children ([facility]Care(R) Instructions(ER/ED)) (Emirati) documented in this encounter Medications at Time [...] on the above findings, I consider Rachel S Restoff to be an acceptable risk for : Procedure(s): TONSILLECTOMY Anupam Thakkar MD Directory [facility] GING DIRECTOR ATLAS Source Note - Lizzette Montaño MD - 08/19/2022 10:26 AM MANAGING DIRECTOR ATLAS Images from the original note were not [...] Allergen Reactions ??? Latex Other (See comments) [place] skin on contact Med List Status: Provider Complete Set By: Shalonda Alvarez PALLETIZER OPERATOR at 08/19/2022 10:25 AM Taking? Last Dose [...] Medication protocol when under care of a CAREER CENTER DIRECTOR Planned anesthesia: General Team communication plan: oral [...] and agree to proceed. All questions answered. GING DIRECTOR ATLAS GING DIRECTOR ATLAS GING DIRECTOR ATLAS documented in this encounter Miscellaneous Notes * [...] and sent to recovery. Anupam Thakkar MD [facility] Date: 08/19/2022 Time: 11:55 AM No Resident involved on case GING DIRECTOR ATLAS documented in this encounter Plan of Treatment Not on file documented as of this encounter Procedures Procedure Name Priority Date/Time Associated Diagnosis Comments TONSILLECTOMY 08/19/2022 11:24 AM MANAGING DIRECTOR ATLAS Recurrent tonsillitis Tonsillith Hypertrophy of tonsils HCG, URINE, QUALITATIVE Routine 08/19/2022 10:07 AM MANAGING DIRECTOR ATLAS documented in this encounter Results * hCG, urine, qualitative (08/19/2022 10:07 AM MANAGING DIRECTOR ATLAS) HCG, ur Negative Negative [facility] Comment:Testing performed by : [facility], [address] [place] [id number] Urine 08/19/2022 10:0 7 AM MANAGING DIRECTOR ATLAS 08/19/2022 10:11 AM MANAGING DIRECTOR ATLAS Roger Ackerman NP LAB URINE ORDERABLES Katia johnson Result [facility] Department [place] [address] documented in this encounter Visit Diagnoses Diagnosis Chronic tonsillitis Tonsillith Enlarged tonsils Hypertrophy of tonsils alone Recurrent tonsillitis Tonsillith Hypertrophy of tonsils Hypertrophy of tonsils alone documented in this encounter Admitting Diagnoses Diagnosis Chronic tonsillitis Tonsillith Enlarged tonsils Hypertrophy of tonsils alone documented in this encounter Administered Medications Inactive Administered Medications - up to 3 most recent administrations Medication Order MAR Action Action Date Dose Rate Site bupivacaine (MARCAINE) 0.25 % (2.5 mg/mL) preservative free injection As needed, Starting on Thu08/19/22 at 1139, Intra-Op Given 08/19/2022 11:39 AM MANAGING DIRECTOR ATLAS 3 mL Surgical Site Lactated Ringer's (LR) infusion 87 mL/hr, intravenous, Continuous, Starting on Thu08/19/22 at 1045, Pre-Op, Restarted 08/19/2022 11:24 AM MANAGING DIRECTOR ATLAS New Bag 08/19/2022 10:59 AM MANAGING DIRECTOR ATLAS 87 mL/hr 87 mL/hr lidocaine 1% buffered injection 0.1 mL 0.1 mL (0.79796 mL/kg), intradermal, Once as needed, other, IV insertion, Starting on Thu08/19/22 at 1004, For 1 dose, Pre-Op, Maximum daily dose 0.1 mL/kg Administer immediately prior to procedure. Given 08/19/2022 10:51 AM MANAGING DIRECTOR ATLAS 0.1 mL documented in this encounter Discontinued Medications Medication Sig Discontinue Reason Start Date End Da te etonogestreL (NEXPLANON) 68 mg implantIndications:Pregn boo Contraception Therapy completed 08/19/2022 norgestimate-ethinyl estradioL (ORTHO-CYCLEN) 0.25-35 mg-mcg per tablet Take 1 tablet by mouth daily Stop Taking at Discharge 06/13/2021 08/19/2022 documented as of this encounter Active and Recently Administered Medications Times are shown in MANAGING DIRECTOR ATLAS. Scheduled Medication Order 08/17/2022 08/18/2022 08/19/2022 acetaminophen [...] (PF) (DILAUDID) injection 0.2 mg 0.2 mg (0.85295 mg/kg), intravenous, Administer over 5 Minutes, Every 5 min PRN, other, 1st line for pain OR if patient unable to tolerate oral; may administer up to 2 doses for acute pain management, Starting on Thu08/19/22 at 1210, For 6 hours, Phase I, Maximum dose = 0.4 mg, Indications: Pain lidocaine 1% buffered injection 0.1 mL (COMPLETED) 0.1 mL (0.42218 mL/kg), intradermal, Once as needed, other, IV [...] %) nebulizer solution 2.5 mg 1 08/19/2022 HYDROmorphone (PF) (DILAUDID ) injection 0.2 mg 1 08/19/2022 Lactated Ringer's (LR) infusion 1 lidocaine 1% buffered injection 0.1 mL 1 oxyCODONE (ROXICODONE) tablet 5 mg 1 2022 Diet Count Last Ordered Date First Orde red Date PEDIATRIC DISCHARGE DIET 1 08/19/2022 Nursing Count Last Ordered Date First Orde red Date DISCHARGE ACTIVITY 1 08/19/2022 DISCHARGE CALL PROVIDER 1 08/19/2022 DISCHARGE FOLLOW UP 1 08/19/2022 DISCHARGE INSTRUCTIONS 3 08/19/2022 documented in this encounter Care Teams Production Planner Relationship Specialty Start Date End Date Ifeoma Calderon NP [address] [place] [address] PCP - General Nurse Practitioner 04/16/22 No, Physician 02/13/22 documented as of this encounter
--- OUTSIDE RECORDS SUMMARY | 2024-07-05 20:27 | XMS_ITS | Clinical Summary ---
Author Organization [facility]spital Address [address] [place] [address] Care Team Providers Care It Project Lead Name Role Phone No, Physician Unavailable Ifeoma Calderon NP Primary Care Provider [phone] [phone] Allergies Active Allergy Reactions Criticality Noted Date Comments Latex Other (See comments) Low 08/11/2022 [place]ank skin on contact Medications etonogestreL (Nexplanon) 68 [...] Unspecified 05/12/2005,01/21/2005, 005 Tdap 03/19/2016 Varicella 03/19/2016,03/12/2006 Surgical History Surgery Date Site/Laterality Comments TONSILLECTOMY FOOT SURGERY Medical History Medical History Date Comments Enlarged tonsils Tonsillith Family History Medical History Relation Name Comments Breast cancer Neg Hx Colon cancer Neg Hx Ovarian cancer Neg Hx Pancreatic cancer Neg Hx Prostate cancer Neg Hx Uterine cancer Neg Hx Social History Tobacco Use Types [...] on file Legal Sex Female 6:58 AM 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 Gender Identity Not on file Sexual Orientation Not on file Obstetrics History Para Term AB IAB SAB Ectopic Multiple Livin g Live Births 0 0 0 0 0 0 0 0 0 0 0 Growth Chart Information Age Height Weight Hflokm-wqg-szys th Percentile BMI Percentile Head Circum Head Circum Percentile Date 18 years 160 cm (5' 3 ) 55.2 kg (121 lb 12.8 oz) 50.09%* 2023 17 years 160 cm (5' 3 ) 52.2 kg (115 lb) 37.07%* 2022 17 years 161 cm (5' 3.39 ) 51.7 kg (113 lb 15.7 oz) 31.40%* 2022 17 years 52.1 kg (114 lb 13.8 oz) 2022 16 years 157 cm (5' 1.81 ) 47.2 kg (104 lb 0.9 oz) 21.23%* 2022 16 years 161.2 cm (5' 3.47 ) 48.7 kg (107 lb 5.8 oz) 16.17%* 2022 16 years 47.8 kg (105 lb 6.4 oz) 2021 16 years 160 cm (5' 3 ) 70 kg (154 lb 5.2 oz) 90.96%* 2021 16 years 70 kg (154 lb 5.2 oz) 2021 15 years 160 cm (5' 3 ) 47.7 kg (105 lb 3.2 oz) 20.26%* 2020 11 years 152.4 cm (5') 41.3 kg (91 lb 0.8 oz) 40.70%* 2016 10 years 152.4 cm (5') 36.3 kg (80 lb) 16.20%* 2015 8 years 28.1 kg (62 lb) 2013 * [facility] (Girls, 2-20 Years) Last Filed Vital Signs Vital Sign Reading [...] 10/29/2023 8:48 AM CDT Plan of Treatment Health Maintenance Due Date Last Done Comments Chlamydia and Gonorrhea (GC/CT) Screening 2004 Depression Screening 2004 Hepatitis C Screening 2004 Meningococcal B Vaccine (2 of 2 - Risk Bexsero 2-dose series) 06/26/2021 05/29/2021 Influenza Vaccine (#1) 2024 Regular Well Visit/Exam 18-64 10/28/2024 10/29/2023 DTaP/Tdap/Td Vaccine (7 - Td or Tdap) 03/19/2026 03/19/2016, 03/12/2010, 02/07/2006, Additional history exists Pneumococcal vaccine <65 Aged Out 02/07/2006, 01/2005 No longer eligible based on patient's age to complete this topic Varicella Vaccines Completed 03/19/2016, 03/12/2006 HPV Vaccines Completed 05/29/2021, 03/30/2019 Meningococcal Vaccine Completed 05/29/2021, 016 Insurance [facility] Member Subscriber Plan / Payer (Ef fective 2021-Present) Name:Rachel Garza Relation to Subscriber:Self Name:Rachel Garza Payer ID:[id number] (NAIC) Group ID:Not on file Type:MEDICAID RISK OTHER Address: ATTN: CLAIMS DEPT [address] [place] [phone] [facility] Member Subscriber Plan / Payer (Ef fective 2022-Present) Name:Rachel Garza Relation to Subscriber:Self Name:Rachel Garza Payer ID:[id number] (NAIC) Group ID:Not on file Type:MEDICAID RISK OTHER Address: ATTN: CLAIMS DEPT [address] [place] [phone] Advance Directives For more information, please contact: [phone] * Full Code (Latest Code Status on File) Date Activated Date Inactivated Comments 08/25/2022 3:28 AM 08/26/2022 1:25 PM * Full Code Date Activated Date Inactivated Comments 02/14/2022 3:03 AM 02/14/2022 9:35 PM Care Teams It Project Lead Relationship Specialty Start Date End Date Ifeoma Calderon NP [address] [place], [place] [id number] PCP - General Nurse Practitioner 04/16/22 No, Physician 02/13/22
--- OUTSIDE RECORDS SUMMARY | 2024-07-05 20:27 | XMS_ITS | Encounter Summary ---
Author Organization [facility] Healthcare Address [address] [place] [address] Care Team Providers Care Fleet Maintenance Foreman Name Role Phone Crystal, Physician Unavailable Ifeoma Calderon NP Primary Care Provider [phone] Encounter Details Date Type Department Care Team (Late st Contact Info) Description 08/07/2022 Telephone [facility] Operating Room [address] [place] [phone] Cait Gallo, ROE Social History Tobacco Use Types Packs/Day Years [...] on file Legal Sex Female 6:58 AM ACID OPERATOR Gender Identity Not on file Sexual Orientation Not on file documented as of this encounter Plan of Treatment Not on file documented as of this encounter Visit Diagnoses Not on filedocumented in this encounter Care Teams Fleet Maintenance Foreman Relationship Specialty Start Date End Date Ifeoma Calderon [employer]ERS INSTRUCTOR [address] [place] [address] PCP - General Nurse Practitioner 04/16/22 Crystal Physician 02/13/22 documented as of this encounter
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
--- OUTSIDE RECORDS SUMMARY | 2024-07-05 20:27 | XMS_ITS | Encounter Summary ---
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 So I had to send as the typical daily directions. LMOM telling katerina to take it how we verbally told her to. She can call back if any questions * Telephone Encounter - Nelli Wells - 10/27/2023 10:31 AM CDT Pt LVM asking for clarification on how to take medication. Per pt, the directions on the bottle differ from what she was told yesterday by medical records receptionist. Pt phone: [phone] * Telephone Encounter - Zoe Dejesus MA - 10/26/2023 4:18 PM CDT Spoke to patient I told her we can offer an OCP to try for a few days. Take 3 tabs per day x 3 days. Keep appt. Sent to [facility] per patient/dad's request * Addendum Note - Zoe Dejesus MA - 10/26/2023 4:18 PM CDTAddended by: ZOE DEJESUS on: 10/26/2023 04:18 PM Modules accepted: Orders * Telephone Encounter - Lesli Ferreira MD - 10/26/2023 3:49 PM CDT Please let patient know this is not unusual with the nexplanon. We can stop the bleeding by giving her a pack of control pills - would take 3 pills per day for 3 days. Please send LoEstrin to stop the bleeding and will see her at her follow up. * Telephone Encounter - Zoe Dejesus MA - 10/26/2023 3:19 PM CDT Mercedes has the nexplanon device. Last seen 2020. They scheduled her an appointment for the . * Telephone Encounter - Cynthia Kemp - 10/26/2023 3:04 PM CDT Pt scheduled for 10/29/23 * Telephone Encounter - Cynthia Kemp - 10/26/2023 2:21 PM CDT Last WWE/OV: 06/13/21 Next WWE/OV: 02/22/24 Symptom(s): abnormal bleeding cramping How lon10/15/23 1 day. Started back yesterday and is still going. Bleeding: enough to wear a pad Preferred Communication: Phone documented in this encounter Plan of Treatment Not on file documented as of this encounter Visit Diagnoses Diagnosis Breakthrough bleeding on Nexplanon- Primary documented in this encounter Care Teams Pad Extractor Tender Relationship Specialty Start Date End Date Ifeoma Calderon NP [address] [place] [address] PCP - General Nurse Practitioner 04/16/22 No, Physician 02/13/22 documented as of this encounter
--- OUTSIDE RECORDS SUMMARY | 2024-07-05 20:28 | XMS_ITS | Encounter Summary ---
Author Organization [facility] Facility Care Team Providers Care Quality Control Chemist Name Role Phone Unavailable Primary Care Provider Unavailabl e Encounter Details Date Type Department Care Team (Late st Contact Info) Description 07/29/2006 9:48 AM HAMMERER TAB - 07/29/2006 11:59 PM HAMMERER TAB Hospital Encounter [facility] Tamara Han MD [address] [place] [id number] Social History Tobacco Use Types Packs/Day Years Used Date Smoking Tobacco: Never Assessed Comments Unknown Sex and Gender Information Value Date Recorded Sex Assigned at Not on file Legal Sex Female 6:58 AM HAMMERER TAB Gender Identity Not on file Sexual Orientation Not on file documented as of this encounter Plan of Treatment Not on file documented as of this encounter Visit Diagnoses Not on filedocumented in this encounter
--- OUTSIDE RECORDS SUMMARY | 2024-07-05 20:28 | XMS_ITS | Encounter Summary ---
Author Organization [facility] Healthcare Address [address] [place] [address] Care Team Providers Care Fingernail Former Name Role Phone Unavailable Primary Care Provider Unavailabl e Encounter Details Date Type Department Care Team (Latest Contact Info) Description 02/18/2016 2:19 AM CDT - 02/18/2016 3:18 AM CDT Hospital Encounter [facility] Angela Workman MD [address] 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 Gender Identity Not on file Sexual Orientation Not on file documented as of this encounter Last Filed Vital Signs Vital Sign Reading Time Taken Comments Blood Pressure 76/61 02/18/2016 2:20 AM CDT Pulse 78 02/18/2016 2:20 AM CDT Temperature 37 ??C (98.6 ??F) 02/18/2016 2:20 AM CDT Respiratory Rate - - Oxygen Saturation 100% 02/18/2016 2:20 AM CDT Inhaled Oxygen Concentration - - Weight 36.3 kg (80 lb) 02/18/2016 2:20 AM CDT Height 152.4 cm (5') 02/18/2016 2:20 AM CDT Body Mass Index 15.62 02/18/2016 2:20 AM CDT Body Mass Index Percentile 16.20% 02/18/2016 2:2 0 AM CDT Growth Chart: CDC (Girls, 2- 20 Years) documented in this encounter Plan of Treatment Not on file documented as of this encounter Visit Diagnoses Diagnosis Acute serous otitis media of both ears Acute serous otitis media documented in this encounter
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
--- OUTSIDE RECORDS SUMMARY | 2024-07-05 20:28 | XMS_ITS | Encounter Summary ---
Author Organization [facility] Healthcare Address [address] [place] [address] Care Team Providers Care Medical Collections Representative Name Role Phone Unavailable Primary Care Provider Unavailabl e Encounter Details Date Type Department Care Team (Latest Contact Info) Description 03/09/2017 1:18 PM CDT - 03/09/2017 3:31 PM CDT Hospital Encounter [facility] Anita Hurst MD [address] [place] [address] Acute pharyngitis; Contact with and (suspected) exposure to environmental tobacco smoke (acute) (chronic) Social History Tobacco Use Types Packs/Day Years Used Date Smoking Tobacco: Never Assessed Comments Unknown Sex and Gender Information Value Date Recorded Sex Assigned at Not on file 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 Gender Identity Not on file Sexual Orientation Not on file documented as of this encounter Last Filed Vital Signs Vital Sign Reading Time Taken Comments Blood Pressure 102/56 03/09/2017 1:39 PM CDT Pulse 74 03/09/2017 1:39 PM CDT Temperature 36.8 ??C (98.3 ??F) 03/09/2017 1:39 PM CD T Respiratory Rate - - Oxygen Saturation 100% 03/09/2017 1:39 PM CDT Inhaled Oxygen Concentration - - Weight 41.3 kg (91 lb 0.8 oz) 03/09/2017 1:39 PM CDT Height 152.4 cm (5') 03/09/2017 1:39 PM CDT Body Mass Index 17.78 03/09/2017 1:39 PM CDT Body Mass Index Percentile 40.70% 03/09/2017 1:3 9 PM CDT Growth Chart: [facility] (Girls, 2- 20 Years) documented in this encounter Plan of Treatment Not on file documented as of this encounter Procedures Procedure Name Priority Date/Time Associated Diagnosis Comments MONONUCLEOSIS SCREEN Routine 03/09/2017 1:55 PM CDT MICROBIOLOGY SPECIMEN REPORT (CONVERTED) Routine 03/09/2017 1:50 PM CDT STREP A DNA, QUANTITATIVE Routine 03/09/2017 1:50 PM CDT documented in this encounter Results * Mononucleosis screen (03/09/2017 1:55 PM CDT) [facility] [place] Screen NEGATIVE NEGATIVE 03/09/2017 2:[address] [facility] HISTORICAL RESULTS Comment: A negative Monospot does not exclude the possibility of mononucleosis. Negative tests should be repeated in 5-10 days if patient symptomatic. 03/09/2017 1:55 PM CDT 03/09/2017 2:[address] [facility] HISTORICAL RESULTS - 03/09/2017 2:36 PM CDT [place] Test Negative, Order Cassidy Bustos Virus Y Annalise Morgan LAB BLOOD ORDERABLES Final Resul t [facility] HISTORICAL RESULTS * Microbiology Specimen Report (Converted) (03/09/2017 1:50 PM CDT) 03/09/2017 1:5 0 PM CDT 03/09/2017 1:[address] [facility] HISTORICAL RESULTS - 03/09/2017 1:50 PM CDT Microbiology Specimen Report (Converted) SPECIMEN [id number] ?? COLLECTED: 2017-03-09 13:50:00 ab ?? REQ#: [id number] REQUESTING : Annalise Mogran PA-C ?? SOURCE: THROAT ?? SP DESC: SWAB --- PROCEDURE --- ?--- RESULT --- ?? CULTURE THROAT: BETA STREP A ??(Final) ??- ??Performed at [facility] ?* NO PATHOGENIC STREPTOCOCCI ISOLATED. - [facility] ? [address] [place] [address] ? [place] [address] ? Pedro Luis Lees MD Procedure Note 09/25/2018 Microbiology Specimen Report (Converted) SPECIMEN [id number] COLLECTED: 2017-03-09 13:50:00 ab REQ#:[id number] REQUESTING DR: Annalise Morgan PA-C SOURCE: THROAT SP DESC: SWAB --- PROCEDURE --- --- RESULT --- CULTURE THROAT: BETA STREP A (Final) - Performed at [facility] * NO PATHOGENIC STREPTOCOCCI ISOLATED. [place] [address] Pedro Luis Lees MD Annalise Morgan LAB BLOOD ORDERABLES Final Resul t Performing Organization Address [facility] de Phone Number [facility] HISTORICAL RESULTS * Strep A DNA, quantitative (03/09/2017 1:50 PM CDT) [facility] Rapid Strep A NEGATIVE NEGATIVE 03/09/2017 3:[address] [facility] HISTORICAL RESULTS Comment:CULTURE ADDED RESULT S TO FOLLOW. 03/09/2017 1:50 PM CDT 03/09/2017 1:56 PM CDT Annalise Morgan LAB BODY FLUIDS AND STOOLS ORDER HARMONY Final Result Performing Organization Address [facility] Co de Phone Number [facility] HISTORICAL RESULTS documented in this encounter Visit Diagnoses Diagnosis Acute pharyngitis Contact with and (suspected) exposure to environmental tobacco smoke (acute) (chronic) documented in this encounter
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
--- OUTSIDE RECORDS SUMMARY | 2024-07-05 20:28 | XMS_ITS | Encounter Summary ---
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 Name Role Phone Unavailable Primary Care Provider Unavailabl e Encounter Details Date Type Department Care Team (Latest Contact Info) Description 12/30/2013 10:54 PM CDT - 12/31/2013 12:49 AM CDT Hospital Encounter [facility] Carmelo Anupam Paul, DO [address] [facility] EMERGENC[facility] DEPT [place], [place] [id number] Acute tonsillitis; Other dyspnea and respiratory abnormality Social History Tobacco Use Types Packs/Day Years Used Date Smoking Tobacco: Never Assessed Comments Unknown Sex and Gender Information Value Date Recorded Sex Assigned at Not on file 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 Gender Identity Not on file Sexual Orientation Not on file documented as of this encounter Last Filed Vital Signs Vital Sign Reading Time Taken Comments Blood Pressure - - Pulse 108 12/30/2013 10:55 PM CDT Temperature 38.1 ??C (100.6 ??F) 12/30/2013 10:55 PM CDT Respiratory Rate - - Oxygen Saturation 98% 12/30/2013 10:55 PM CDT Inhaled Oxygen Concentration - - Weight 28.1 kg (62 lb) 12/30/2013 10:55 PM CDT Height - - Body Mass Index - - documented in this encounter Plan of Treatment Not on file documented as of this encounter Procedures Procedure Name Priority Date/Time Associated Diagnosis Comments XR CHEST PA LATERAL 2 VIEWS Routine 12/30/2013 12:00 AM CDT documented in this encounter Results * XR Chest Pa Lateral 2 Views (12/30/2013 12:00 AM CDT) Anatomical Region Laterality Modality Body, Chest N/A Radiographic Candy ging 12/30/2013 Impressions 12/30/2013 11:37 PM CDT ??No active chest disease. THIS IS AN ELECTRONICALLY VERIFIED REPORT 12/30/2013 11:34 PM: ??Lee Aguirre M.D. Lee Aguirre M.D. MA:dea 11:34 PM 11:34 PM APO [EOD] Narrative 12/30/2013 11:37 PM CDT EXAMINATION: ??Chest 2 views HISTORY: ??Chest pain and fever. COMPARISON: ??Chest x-ray ??February 05, 2006 FINDINGS: ??Cardiac silhouette and pulmonary vascularity are normal. ??No consolidation, pleural effusion, or evidence of pneumothorax. Procedure Note Provider, MD Nano - 11/20/2020 EXAMINATION: Chest 2 views HISTORY: Chest pain and fever. COMPARISON: Chest x-ray February 05, 2006 FINDINGS: Cardiac silhouette and pulmonary vascularity are normal. No consolidation, pleural effusion, or evidence of pneumothorax. IMPRESSION: No active chest disease. THIS IS AN ELECTRONICALLY VERIFIED REPORT 12/30/2013 11:34 PM: Lee Aguirre M.D. Lee Aguirre M.D. MA:dea 11:34 PM 11:34 PM APO [EOD] Prerna Brito PA IMG XR PROCEDURES Final Resul t documented in this encounter Visit Diagnoses Diagnosis Acute tonsillitis Other dyspnea and respiratory abnormality documented in this encounter
--- OUTSIDE RECORDS SUMMARY | 2024-07-05 20:28 | XMS_ITS | Encounter Summary ---
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
--- OUTSIDE RECORDS SUMMARY | 2024-07-05 20:28 | XMS_ITS | Encounter Summary ---
Author Organization [facility] Address [address] [facility] [address] [place] [address] Care Team Providers Care Electroslag Welding Machine Operator Name Role Phone No, Physician Primary Care Provider [phone] Reason for Visit * Reason Comments New Patient bleeding for 2 years while being on the nexplanon Encounter Details Date Type Department Care Team ([facility] st Contact Info) Description 06/13/2021 11:45 AM CONSTRUCTION EQUIPMENT OVERHAULER Office Visit [facility] Obstetrical Gynecology [address] [address] Lesli Ferreira MD [address] [address] Well woman exam (Primary Dx); DUB (dysfunctional uterine bleeding) Social History Tobacco Use Types Packs/Day Years Used Date Smoking Tobacco: Never Comments No Sex and Gender Information Value Date Recorded Sex Assigned at Not on file Legal Sex Female 6:58 AM CONSTRUCTION EQUIPMENT OVERHAULER Gender Identity Not on file Sexual Orientation Not on file documented as of this encounter Last Filed Vital Signs Vital Sign Reading Time Taken Comments Blood Pressure 100/64 06/13/2021 11:33 AM CONSTRUCTION EQUIPMENT OVERHAULER Pulse - - Temperature - - Respiratory Rate - - Oxygen Saturation - - Inhaled Oxygen Concentration - - Weight 47.7 kg (105 lb 3.2 oz) 06/13/20 11:33 AM CONSTRUCTION EQUIPMENT OVERHAULER Height 160 cm (5' 3 ) 06/13/2021 11:33 AM CONSTRUCTION EQUIPMENT OVERHAULER Body Mass Index 18.64 06/13/2021 11:33 AM CONSTRUCTION EQUIPMENT OVERHAULER Body Mass Index Percentile 20.26% 06/13 11:33 AM CONSTRUCTION EQUIPMENT OVERHAULER Growth Chart: CDC (Girls, 2- 20 Years) documented in this encounter Ordered Prescriptions Prescription Sig Dispense Quantity Refills Last Filled Start Date End Date norgestimate-ethin yl estradioL (ORTHO-CYCLEN) 0.25-35 mg-mcg per tablet Take 1 tablet by mouth daily 84 tablet 3 06/13/2021 08/19/2022 norethindrone-e.es tradioL-iron 1 mg-10 mcg (24)/10 mcg (2) tablet Take 10 mcg by mouth daily for 26 days 26 tablet 06/13/2021 06/13/2021 documented in this encounter Progress Notes * Lesli Ferreira MD - 06/13/2021 11:45 AM CST Well Woman Annual Exam Subjective: Rachel Garza is a 15 y.o. who presents for annual exam. She denies fevers, chills, nausea, vomiting, CP, SOB, vaginal discharge, decreased appetite, unintentional weight loss/gain, dysuria or hematuria. Denies depressive symptoms. Today, she also wants to discuss her abnormal bleeding with her nexplanon. She had a nexplanon placed for contraception 03/2019. She has been bleeding every day since. Most days, it is brown and spotting. However, she has had a few episodes of very heavy bleeding requiring visit to the ER. She has to use tampons every day. Usually, they are not saturated but sometimes they are. She did try to take 2mg estrace tablets once to stop the bleeding, but this did not help. She wants reliable control and is nervous to switch. She does not want to remove the nexplanon. She wants to discuss treatment options. Review of Systems Review of Systems Constitutional: [...] tenderness, breast redness, breast discharge and lump(s). 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 Regular, predictable monthly cycles with 3-5 days of light bleeding STDs: denies any history. Gets tested annually Contraception: nexplanon placed 03/2019 Sexually active: with men Mammogram: n/a Colonoscopy: n/a DEXA: n/a Family history: Denies history of breast, ovarian, uterine, colon cancer. OB History 0 Para 0 Term 0 0 AB 0 Living 0 SAB 0 IAB 0 Ectopic 0 Multiple 0 Live Births 0 History reviewed. No pertinent past medical history. History reviewed. No pertinent surgical history. Family History Problem Relation Age of Onset ??? Breast cancer Neg Hx ??? Ovarian cancer Neg Hx Current Outpatient Medications Medication Sig Dispense Refill ??? etonogestreL (NEXPLANON) 68 mg implant ??? norgestimate-ethinyl estradioL (ORTHO-CYCLEN) 0.25-35 mg-mcg per tablet Take 1 tablet by mouth daily 84 tablet 3 No current facility-administered medications for this visit. No Known Allergies Social History Tobacco Use ??? Smoking status: Never Smoker ??? Smokeless tobacco: Not on file Substance Use Topics ??? Alcohol use: Not on file ??? Drug use: Never Social History Tobacco Use Smoking Status Never Smoker Smokeless Tobacco Not on file Objective: PHYSICAL EXAM: Vitals: 06/13/21 1133 BP: 100/64 Weight: 105 lb 3.2 oz Height: 160 cm (5' 3 ) [...] Active Problem List Diagnosis Date Noted ??? Well woman exam 06/13/2021 Assessment/Plan: 1. WWE a. Pap - n/a due to age b. STI screening offered and declined c. Gardasil series - to be addressed next visit d. Contraception - nexplanon placed 2018 2. DUB a. Counseled today on the pathophysiology today of DUB with progestin only contraception b. Discussed management options today c. Reviewed CI to estrogen, none exist d. Discussed options for other types of contraception and the r/b/a e. For now, she desires to keep the nexplanon. Will give concurrent OCPs. Will start with OCP taper: 3 pills/day for 3 days, then 2 pills/day for 2 days, then one pill daily. Skip placebo pills f. Counseled on bleeding precautions Patient will update regarding bleeding in 2 weeks. RTC in 1 yr for WWAnna Ferreira MD 1:00 PM TRUCTION EQUIPMENT OVERHAULER documented in this encounter Plan of Treatment Not on file documented as of this encounter Visit Diagnoses Diagnosis Well woman exam- Primary Routine general medical examination at a health care facility DUB (dysfunctional uterine bleeding) Other disorder of menstruation and other abnormal bleeding from female genital tract documented in this encounter Discontinued Medications Medication Sig Discontinue Reason Start Date End Da te norethindrone-e.estradioL -iron 1 mg-10 mcg (24)/10 mcg (2) tablet Take 10 mcg by mouth daily for 26 days Alternate therapy 06/13/2021 06/13/2021 documented as of this encounter Historical Medications * This list may reflect changes made after this encounter. Medication Sig Dispense Quantity Refills Last Filled Start D ate End Date etonogestreL (NEXPLANON) 68 mg implantIndications:Pre gnancy Contraception 08/06 added in this encounter Care Teams Electroslag Welding Machine Operator Relationship Specialty Start Date End Date No, Physician PCP - General 06/11/21 02/12/22 documented as of this encounter
--- OUTSIDE RECORDS SUMMARY | 2024-07-05 20:28 | XMS_ITS | Encounter Summary ---
Author Organization [facility] Address [address] [place] [address] Phone Care Team Providers Care Fruit Checker Name Role Phone No, Physician Unavailable Ifeoma Calderon NP Primary Care Provider [phone] Reason for Referral * Consultation (Routine) - Closed Specialty Diagnoses / Procedures Referred By Contact Referred To Contact Pediatric Otolaryngology Diagnoses Chronic tonsillitis Ifeoma Calderon NP [address] [place] [address] Phone: tel: fax:[phone] [facility] (All Locations) Referral ID Status Reason Start Date Expiration Date V isits Requested Visits Authorized [id number] Closed Specialty Services Required 06/03/2022 07/03/2023 6 6 Question Answer Please select the performing region: [facility] (All Locations) [167] # of visits: 1 TYPEWRITER INSTALLER Reason for Visit * Reason Comments Enlarged Tonsils * Consultation (Routine) - Closed Specialty Diagnoses / Procedures Referred By Contact Referred To Contact Pediatric Otolaryngology Diagnoses Chronic tonsillitis Ifeoma Calderon NP [address] [place] [address] Phone: tel:[phone] fax:[phone] [facility] (All Locations) Referral ID Status Reason Start Date Expiration Date V isits Requested Visits Authorized [id number] Closed Specialty Services Required 06/03/2022 07/03/2023 6 6 Encounter Details Date Type Department Care Team (Late st Contact Info) Description 06/11/2022 2:45 PM TELETYPEWRITER INSTALLER Office Visit [facility] Otolaryngology [facility] [address] [place] [address] Anupam Thakkar MD [address] [place] [address] [address] [place] [address] Chronic tonsillitis (Primary Dx); Tonsillith Social History Tobacco Use Types Packs/Day Years [...] on file Legal Sex Female 6:58 AM TELETYPEWRITER INSTALLER Gender Identity Not on file Sexual Orientation Not on file documented as of this encounter Last Filed Vital Signs Vital Sign Reading Time Taken Comments Blood Pressure - - Pulse - - Temperature - - Respiratory Rate - - Oxygen Saturation - - Inhaled Oxygen Concentration - - Weight 47.8 kg (105 lb 6.4 oz) 06/11/2022 2:59 P M TELETYPEWRITER INSTALLER Height - - Body Mass Index - - documented in this encounter Progress Notes * Anupam Thakkar MD - 06/11/2022 2:45 PM CST PEDIATRIC OTOLARYNGOLOGY AMBULATORY CONSULT NOTE Subjective/Objective Name: Rachel Worthy Restoff : 2005 Chief Complaint Chronic Tonsillitis, Tonsil Stones History of Present Illness Rachel is a 16 y.o. female who is here today for evaluation of recurrent tonsillitis and tonsil stones. She was previously followed by [facility] in 2019 for this same complaint. At that time family elected to do watchful waiting instead of surgery. Rachel is here today for further evaluation. She describes her tonsil stones as white, and states they occur on weekly basis. She will sometimesuse saltwater gargles and Q-tips to remove them. She attributes halitosis to the stones. She tried a waterpik but found that this was painful. No family history of bleeding disorders or problems with anesthesia. Rachel had heavy menses for two years but these have resolved. Rachel occasionally feels discomfort/difficulty swallowing solid foods. Review of Systems Patient-completed ROS was reviewed and scanned into the chart. Relevant portions were incorporated into the HPI and PMH. History Born full-term without NICU stay. Passed [facility]. Immunizations: UTD Past Medical History: Diagnosis Date Enlarged tonsils Tonsillith History reviewed. No pertinent surgical history. Medications: Rachel has a current medication list which includes the following prescription(s): acetaminophen (TYLENOL), bacitracin-polymyxin b (POLYSPORIN), etonogestrel (NEXPLANON), nexplanon, ibuprofen (ADVIL,MOTRIN), and norgestimate- ethinyl estradiol (ORTHO-CYCLEN). Allergies: No Known Allergies Social History Lives with Mother Attends: 12th grade Smokers in the house, even if they do not smoke inside: Yes Family History No history of bleeding problems or issues with anesthesia. Physical Exam Vitals Wt 47.8 kg (105 lb 6.4 oz) GENERAL: Rachel was breathing comfortably through mouth and nose VOICE: strong voice HEAD: normocephalic FACE: Symmetric without masses and with symmetric facial movement EYES: Lids and lashes were unremarkable. The patient was able to fix and follow appropriately. Nystagmus was not present. RIGHT EAR Auricle was normal in size and normal in position. Canal: patent with minimal cerumen Tympanic membrane: Clear middle ear space and healthy membrane LEFT EAR Auricle was normal in size and normal in position. Canal: patent with minimal cerumen Tympanic membrane: Clear middle ear space and healthy membrane NOSE: External: no gross asymmetry or deformity Internal: Nasal passages with no drainage and no crusting. No masses Septum: midline ORAL CAVITY: TMJ: normal mobility Lips: normal Teeth: normal for age Mucosa: moist without lesions Tongue: midline, appropriately mobile Lingual Frenulum: normal Hard Palate: intact Soft Palate: intact with monofid uvula, non-erythematous Tonsils: 3+ Posterior pharynx: no erythema or exudates NECK: Nodes/Masses: no pathologic lymphadenopathy, no evidence of congenital anomalies Salivary glands: soft without masses ENDOCRINE: Thyroid non-enlarged, no palpable nodules/mass SKIN: No rash or bruising. CARDIOPULMONARY: Unlabored respirations, no accessory muscle use, appropriate capillary refill. Procedures: None Diagnostics: None Assessment/Plan Rachel is a 16 y.o. female with tonsil hypertrophy and recurrent tonsilliths that are bothersome toher and affect her quality of life. Plan: I offered tonsillectomy after a discussion of risks (including post- tonsillectomy bleed, respiratory complications, readmission for poor oral intake, residual obstructive/pharyngitis symptoms, or regrowth), benefits and alternatives to the procedure. Mom and patient wish to proceed and prefer comple te tonsillectomy. We will schedule this procedure at the family's convenience. I counseled regarding potentially slightly elevated bleed risk with Motrin use, but emphasized importance of pain control in maintaining hydration. Will plan to offer Tylenol, Motrin and Oxycodone post-operatively. ATTESTATION: The note in its entirety has been confirmed by me, the attending physician. Parts of the note were initially recorded by my clinic staff. Anupam Thakkar MD Parachute Cushion Installer Pediatric Otolaryngology TYPEWRITER INSTALLER documented in this encounter Plan of Treatment Scheduled Referrals Name Type Priority Associated Diagnoses Orde r Schedule Ambulatory referral to Pediatric ENT Outpatient Referral Routine Chronic tonsillitis Expected: 06/17/2022 (Approximate), Expires: 06/03/2023 documented as of this encounter Visit Diagnoses Diagnosis Chronic tonsillitis- Primary Tonsillith documented in this encounter Discontinued Medications Medication Sig Discontinue Reason Start Date End Da te acetaminophen (TYLENOL) 325 mg tablet Take 2 tablets (650 mg total) by mouth every 6 (six) hours as needed for pain Therapy completed 02/14/2022 06/11/2022 bacitracin-polymyxin B (POLYSPORIN) ointmentIndications:Mi nor Bacterial Skin Infections Apply 1 application topically 3 (three) times a day Therapy completed 02/14/2022 06/11/2022 ibuprofen (ADVIL,MOTRIN) 600 mg tablet Take 1 tablet (600 mg total) by mouth every 6 (six) hours as needed for pain Therapy completed 02/14/2022 06/11/2022 documented as of this encounter Care Teams Fruit Checker Relationship Specialty Start Date End Date Ifeoma Calderon NP [address] [place] [address] PCP - General Nurse Practitioner 04/16/22 No, Physician 02/13/22 documented as of this encounter
== END 2024-06-28 11:46 | disposition home or self-care (01) ==
PROVIDERS: Emergency Provider Internal Medicine Critical Care Medicine
DX: J06.9 Acute upper respiratory infection, unspecified (principal); Z20.822 Contact with and (suspected) exposure to COVID-19
CPT/HCPCS: 87637; 87651; 99282